=== PATIENT | female | born 1980 | race Caucasian/White ===

== ENCOUNTER 2019-10-20 15:06 | Emergency (ER) | payer BC, SELFPAY ==
--- NOTE | ~2019-10-20 | US_ITS ---
EXAMINATION:US venous doppler LE RT INDICATION:Right leg pain TECHNIQUE: Multiple grayscale, color flow and Doppler images of the right lower extremity deep venous systems were obtained and reviewed. COMPARISON:No prior studies for comparison. FINDINGS: The common femoral, superficial femoral and popliteal veins demonstrate normal respiratory variation, augmentation and compressibility. Color flow is also seen within the posterior tibial, pe roneal, greater saphenous and profunda veins. IMPRESSION: 1: No lower extremity deep venous thrombosis. Reviewed, dictated and finalized at location A. RA MECHANIC
--- NOTE | ~2019-10-20 | XR_ITS ---
XR foot RT min 3V, XR foot LT min 3V 10/20/2019 15:35 Indication: Bilateral foot pain Procedure: 4 views each foot Comparison: No prior studies for comparison. 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 Lisfranc joints intact. No focal soft tissue a bnormality. No radiopaque foreign bodies. No acute fracture or traumatic malalignment. Impression: 1: No acute bone or joint abnormality. Reviewed, dictated and finalized at location A. NISATIONAL PSYCHOLOGIST Impression: 1: No acute bone or joint abnormality. Impression: 1: No acute bone or joint abnormality.
[2019-10-20 14:58] VITALS: BP 127/85; PULSE 84; RESP 20; TEMP 36.6; O2SAT 100
--- NOTE | 2019-10-20 15:09 | ED.LOWEXIN ---
HPI - Extremity Injury (Lower) General Chief Complaint: Extremity Injury, Lower Stated Complaint: calf pain Time Seen by Provider: 10/20/19 15:06 Source: patient Mode of arrival: EMS Limitations: no limitations History of Present Illness HPI Narrative: A 39 y/o female pt presents to the ED, with c/o bilateral foot pain x 6 months and a new onset of rt calf pain that began yesterday. Pt denies any Hx of blood clots. She states she has a WATT and feels weak in the ED bed but denies any CP, or SOB. She notes that she saw her PCP for her bilateral foot pain, but they did not find anything abnormal. Pt states her OBGYN is Dr. Gertrude Rocha and notes last seeing him a week and a half ago for an US. She states that Dr. Gertrude Rocha suspects Endometrial CA and is scheduling a repeat US. 5, Para 2, Abortus 2. MD complaint: other (rt calf pain, bilateral foot pain) Onset (ago): day(s) (1 (rt calf pain)) Other symptoms: other (weakness, WATT) Related Data Home Medications Medication Instructions Recorded Confirmed lorazepam 1 mg PO DAILY PRN 10/20/19 Allergies Allergy/AdvReac Type Severity Reaction Status Date / Time No Known Allergies Allergy Unverified 12/04/18 13:02 Review of Systems Review of Systems: All systems reviewed & are unremarkable except as noted in HPI and below Constitutional: Constitutional: Reports headache(s) Cardiovascular: Cardiovascular: Denies chest pain and Denies dyspnea Musculoskeletal: Musculoskeletal: Reports other (bilateral foot pain, rt calf pain) PMFSH Past Medical History Medical History (Updated 10/20/19 @ 16:44 by [facility]ga [facility]) No significant past medical history Surgical History Surgical History (Updated 10/20/19 @ 16:44 by Visualtisinggayatri Hendrickson [employer]) History of thyroidectomy Family History Family History (Updated 04/25/14 @ 07:13 by DOCTOR UNKNOWN) Mother Family history of thyroid disease Grandparent Family history of glaucoma Family history of coronary artery disease Family history of congestive heart failure Social History Social History (Updated 10/20/19 @ 16:45 by Visualtisinggayatri Hendrickson [employer]) Smoking status: Unknown if ever smoked Alcohol intake: current Exam Const: General: cooperative, no acute distress and alert Nutritional Appearance: well nourished Orientation/consciousness: patient oriented x3 Limitations: no limitations HENMT: Mouth: Yes lip normal and Yes moist mucous membranes Resp: Effort & Inspection: normal respiratory effort Auscultation: clear to auscultation bilaterally Cardio: Rate: regular rate Rhythm: regular rhythm GI: GI Palp: Yes Soft to palpation and No Tenderness to palpation present (GI) Auscultation: normal bowel sounds Skin: General skin exam: normal color Neuro: General: patient oriented x3 and deep tendon reflexes 2+ bilaterally Cognition (Neuro): normal cognition Speech: normal speech Extrem: General: normal to inspection, full ROM, no clubbing, cyanosis or edema and no calf tenderness Psych: Mental Status: mental status grossly normal Affect: normal affect Attitude: cooperative Course Course Emergency Course: Patient with no findings to suggest DVT on ultrasound and clinical exam is not overtly suspicious. Patient with foot pain bilaterally for the past 6 months and normal x-rays. Patient to follow-up with her ALLIGATOR SHEAR OPERATOR for follow-up ultrasound as scheduled. Patient appropriate for outpatient management. Vital Signs Vital signs: Vital Signs Temperature 97.8 F 10/20/19 14:58 Pulse Rate 84 10/20/19 14:58 Respiratory Rate 20 10/20/19 14:58 Blood Pressure 127/85 10/20/19 14:58 Pulse Oximetry 100 10/20/19 14:58 Temperature 98.2 F 10/20/19 17:05 Pulse Rate 80 10/20/19 17:05 Respiratory Rate 20 10/20/19 17:05 Blood Pressure 120/78 10/20/19 17:05 Pulse Oximetry 99 10/20/19 17:05 MDM - Extremity Injury (Lower) Imaging Data Radiologist's impression:
[2019-10-20 17:05] VITALS: BP 120/78; PULSE 80; RESP 20; TEMP 36.8; O2SAT 99
== END 2019-10-20 17:06 | disposition home or self-care (01) ==
PROVIDERS: Emergency Provider Emergency Medicine; PCP Family Medicine
DX: M79.672 Pain in left foot (principal); M79.671 Pain in right foot; M79.661 Pain in right lower leg; E89.0 Postprocedural hypothyroidism
CPT/HCPCS: 73630; 93971; 99284

== ENCOUNTER 2020-02-03 12:35 | Outpatient (RCR) | payer BC, SELFPAY ==
[2020-02-03 12:56] VITALS: BP 111/64; PULSE 83
--- NOTE | 2020-02-03 13:20 | PC.NURSE ---
Patient arrived on unit at 1235, visibly manic, talking erratic. Patient states that I have not felt my baby move for at least a week. 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 Patient taken to room at 1238, given a belly band and patient went to the bathroom. Patient stated I need to check my vagina. Patient in bed, monitors placed on patient abdomen. heart tones present. Patient then began talking erratic again, states, they cloned my baby last week, they went up my rectum and cloned the baby, now he wants out. God told me yesterday he was going to heal me and i think he did just that. 1246- Call placed to Dr. Crouch, informed him of heart tones, and no contractions on monitor. Orders to send patient to ER to be evaluated. 1250- Call placed to ER to elt them know to be expecting this patient, per Deborah, take patient directly to room 109. 1254- Upon entering patient room, patient has pants down at ankles. patient instructed to put pants back on, baby looks fine on the monitor, so we will be taking her to the ER for further evaluation. Patient is agreeable to this. patient taken via wheelchair to room 9 in ER. Report given to ASUNCION Cabrera and ASUNCION Hernandez.
--- NOTE | 2020-02-04 07:07 | PM.OBTRLD ---
OB - Triage/Final Diagnosis Visit Information Date of evaluation: 02/03/20 Reason for evaluation: decreased movement Evaluation Vital signs: Vital Signs - 24 hr 02/03/20 12:56 Pulse Rate 83 Blood Pressure [Left Arm] 111/64
== END 2020-05-03 23:59 | disposition home or self-care (01) ==
LOC: ANHOBOP 12:35
PROVIDERS: PCP Family Medicine; Visit Provider Student in an Organized Health Care Education/Training Program
DX: O36.8120 Decreased fetal movements, second trimester, not applicable or unspecified (principal); Z3A.23 23 weeks gestation of pregnancy
CPT/HCPCS: 59025

== ENCOUNTER 2020-02-03 13:09 | Emergency (ER) | payer BC, SELFPAY ==
[2020-02-03] VITALS (7 sets, daily range): BP systolic 107–138; BP diastolic 48–76; PULSE 62–85; RESP 8–27; TEMP 36.9; O2SAT 96–100
--- NOTE | ~2020-02-03 | US_ITS ---
US OB follow up DATE: 02/03/2020 13:52 INDICATION: Unsure of last menstrual period TECHNIQUE: Real-time imaging and Doppler analysis COMPARISON: 04/12/2019 transvaginal ultrasound FINDINGS: Live nguyen intrauterine gestation, fetus in vertex presentation, longitudinal lie. Post erior placenta. Lower placental margin is 7.5 cm above the internal os. heart rate 120 bpm. Biparietal diameter 5.72 cm; 23 weeks 4 days estimated gestational age Head circumference 21.52 cm; 23 weeks 4 days Abdominal circumference 18.38 cm; 23 weeks 1 day Femur length 3.89 cm; 22 weeks 3 days Composite age by [place] formula is 23 weeks 1 day +/- 1 week 4 days; BRYAN by ultrasound is 05/31/2020 . Estimated weight is 551.4 +/- 80 3 g. Head circumference/abdominal circumference 1.17, within normal range of 1.05-1.21. Femur length/BPD 67.98, below normal range of 71.0-87.0 Femur length/head circumference 18.06, below normal range of 19.13, 120.81 Femur length/abdominal circumference 21.14, within normal range of 20.00-24.00 Amniotic fluid index measures 17.4 cm, within normal range. The 5th percentile ESTRELLITA is 9.8 cm; 95th pe rcentile ESTRELLITA is 21.8 cm. IMPRESSION: Estimated gestational age is 23 weeks 1 day +/- 1 week 4 days; BRYAN: 05/31/2020 Reviewed, dictated and finalized at Location A. Reviewed, dictated and finalized at location A.
--- NOTE | 2020-02-03 14:00 | PC.NURSE ---
BELT WORKER AT BEDSIDE.
[2020-02-03 14:06] LABS: Add Urine Microscopic? NO; Appearance Urine Clear (Clear); Basophils Absolute Auto 0.1 K/mm3 (0.0-0.1); Basophils Percent Auto 0.5 % (0.2-1.2); Bilirubin Urine Negative (Negative); Blood Urine Negative (Negative); Color Urine Colorless (Yellow); Eosinophils Absolute Auto 0.1 K/mm3 (0-0.3); Eosinophils Percent Auto 1.1 % (0-4.4); Glucose Urine UA Negative (Negative); Hematocrit 31.3 % (37.0-47.0); Hemoglobin 10.8 g/dL (12.0-15.0); Immature Granulocyte Absolute 0.05 K/mm3 (0.00-0.031); Immature Granulocyte Percent A 0.5 % (0-0.5); Ketones Urine Negative (Negative); Leukocyte Esterase Ur Negative LEU/UL (Negative); Lymphocytes Absolute Auto 1.99 K/mm3 (0.9-3.2); Lymphocytes Percent Auto 18.8 % (18.3-44.2); Mean Corpuscular HGB Conc 34.5 g/dl (32-36); Mean Corpuscular Hemoglobin 32.1 pg (26-34); Mean Corpuscular Volume 93.2 fl (80-100); Mean Platelet Volume 9.6 fl (7.4-10.4); Monocytes Absolute Auto 0.7 K/mm3 (0.1-0.6); Monocytes Percent Auto 6.1 % (2.6-8.5); Neutrophils Absolute Auto 7.7 K/mm3 (1.3-6.7); Nitrate Urine Negative (Negative); Platelet Count Result 331 k/mm3 (150-375); Protein Urine Negative (Negative); Red Blood Count 3.36 M/mm3 (4.2-5.4); Red Cell Distribution Width 12.2 % (11.5-14.5); Specific Grav Ur 1.003 (1.001-1.035); Urobilinogen Urine Negative mg/dL (<2.0); White Blood Count 10.6 K/mm3 (4.5-10.0)
[2020-02-03 14:17] LABS: Alanine Aminotransferase 16 U/L (4-35); Albumin Level 3.4 g/dL (3.5-5.1); Alkaline Phosphatase 91 U/L (38-126); Aspartate Amino Transferase 25 U/L (14-36); Bilirubin,Total 0.4 mg/dL (0.2-1.3); Blood Urea Nitrogen 2 mg/dL (7-17); Calcium 8.2 mg/dL (8.4-10.2); Carbon Dioxide 23 mmol/L (22-30); Chloride 98 mmol/L (98-107); Estimated CRCL calculation 156 ml/min; Estimated Glomerular Filt Rate > 60; Glucose 91 mg/dL (65-105); Sodium 126 mmol/L (137-145)
[2020-02-03 14:18] LABS: Ethanol < 10 mg/dL (<10)
[2020-02-03 14:21] LABS: Amphetamine Screen Urine Negative (Negative); Barbiturate Screen Urine Negative (Negative); Benzodiazepines Screen Urine Negative (Negative); Cannabinoid Screen Urine Negative (Negative); Cocaine Screen Urine Negative (Negative); Methadone Screen Urine Negative (Negative); Opiate Screen Urine Negative (Negative); Phencyclidine Screen Urine Negative (Negative)
--- NOTE | 2020-02-03 14:24 | PC.NURSE ---
Pt mother called to talk to this RN. Mother states that pt has been off of her medications for months. States she has been maniac
--- NOTE | 2020-02-03 14:37 | ED.PSYCH ---
HPI - Psych General Chief Complaint: Psychiatric Symptoms <Peng Lala MD - Last Filed: 02/03/20 19:03> Stated Complaint: unknown <Peng Lala MD - Last Filed: 02/03/20 19:03> Time Seen by Provider: 02/03/20 13:16 <Peng Lala MD - Last Filed: 02/03/20 19:03> History of Present Illness HPI Narrative: Patient is a 39-year-old female with history of schizophrenia who presents the ER with hallucinations. Patient originally went to OB to be evaluated for a baby that had not moved over the last week. They found that the baby was indeed active and had a heartbeat so she was referred to the ER for her hallucinations. Patient reports she thinks that she is part of a science experiment with the [facility] were they have implanted a chip in her. She also has concerns that her urethra/vagina/rectum have been sealed shut and only spontaneously open. She is also been exposed to cloning vapors from a vent at her mother's home. Patient reports that she frequently speaks with God and he communicates to her through writings on the quinones. She is not currently seeing any writing on the wall and she is not responding to any internal stimuli. Patient denies any medical complaints. She reports she is about 5 months and that she sees Dr. Gertrude Rocha. His office reports that they are aware of her but she has not been seen. Patient is a G5, P2 with 2 miscarriages. She denies any drug use. She is persistently requesting drinks water. <Peng Lala MD - Last Filed: 02/03/20 19:03> Related Data Home Medications: Home Medications Medication Instructions Recorded Confirmed lorazepam 1 mg PO DAILY PRN 10/20/19 <Peng Lala MD - Last Filed: 02/03/20 19:03> Allergies/Adverse Reactions: Allergies Allergy/AdvReac Type Severity Reaction Status Date / Time No Known Allergies Allergy Unverified 02/03/20 13:28 <Peng Lala MD - Last Filed: 02/03/20 19:03> Review of Systems Review of Systems: All systems reviewed & are unremarkable except as noted in HPI and below (Very limited given patients psychosis) <Peng Lala MD - Last Filed: 02/03/20 19:03> [facility] Past Medical History Medical History: Medical History (Updated 02/07/20 @ 00:01 by Background Dacassy) No significant past medical history Schizophrenia <Peng Lala MD - Last Filed: 02/03/20 19:03> Surgical History Surgical History: Surgical History (Updated 10/20/19 @ 16:44 by [email or web address]) History of thyroidectomy <Peng Lala MD - Last Filed: 02/03/20 19:03> Family History Family History: Family History (Updated 04/25/14 @ 07:13 by DOCTOR UNKNOWN) Mother Family history of thyroid disease Grandparent Family history of glaucoma Family history of coronary artery disease Family history of congestive heart failure <Peng Lala MD - Last Filed: 02/03/20 19:03> Social History Social History: Social History (Updated 10/20/19 @ 16:45 by [email or web address]) Smoking status: Unknown if ever smoked Alcohol intake: current Gender identity (if verbalized by the patient): Female <Peng Lala MD - Last Filed: 02/03/20 19:03> Exam Narrative: Exam Narrative: GENERAL: Anxious-appearing, well-nourished, and in mild distress. HEAD: Normocephalic, atraumatic. EYES: PERRL and EOMI. ENT: Mucous membranes moist. CHEST: Clear to auscultation. No respiratory distress. HEART: Regular rate and rhythm. Normal peripheral pulses. ABDOMEN: Soft, fundus palpated just above the umbilicus, nondistended, normal active bowel sounds. : Normal external genitalia. No apparent discharge or bleeding evaluated from a distance with patient manually opening her vagina. No speculum exam performed. EXTREMITIES: Normal range of motion. No edema. SKIN: Warm, dry, no rash. NEURO: Alert and oriented x3. PSYCH: Patient with extreme par
[2020-02-03 14:48] LABS: Thyroid Stimulating Hormone 0.978 uIU/mL (0.465-4.680)
--- NOTE | 2020-02-03 14:58 | PC.NURSE ---
While swabbing pt for Covid, pt putting her hand down her pants stating my vagina is one finger deep and 1.5 inches open, my urethra is closed, its turned to the right toward my bowels. I stopped a nuclear bomb yesterday.
--- NOTE | 2020-02-03 15:29 | PC.NURSE ---
Crisis Called and will be out to evaluate pt shortly
--- NOTE | 2020-02-03 15:29 | PC.NURSE ---
If pt is DC, call Jay at [phone] for a ride
--- NOTE | 2020-02-03 15:53 | PC.NURSE ---
Pt ambulatory to the bathroom at this time
--- NOTE | 2020-02-03 16:30 | PC.NURSE ---
Crisis here to evaluate pt. Pt becoming very agitated. This RN and Dr Post present in room. Pt pulling her pants down and sticking her fingers in her vagina yelling see my vagina isn't closed, you need to check my vagina Pt then gets on bed and spreads her legs open showing us her vagina and yelling stick your finger in my vagina and see
--- NOTE | 2020-02-03 16:45 | PC.NURSE ---
VORB for 5 mg IM zyprexa. Pt very agitated and yelling to not give her medication. Pt getting out of bed and attempting to run. Pt stopped and guided back to her bed. Pt finally agrees and cooperates with given medication. MD present at time of medication administration
[2020-02-03] MEDS: OLANZapine 10 MG INJ VIAL (16:49)
[2020-02-03] MEDS: WATER, STERILE FOR INJECTION 10 ML VIAL XX (16:49)
--- NOTE | 2020-02-03 16:56 | PC.NURSE ---
According to pts friend Jay, pt has contact with her children when she is at her mothers house.
--- NOTE | 2020-02-03 17:28 | PC.NURSE ---
DCFS called at this time to make sure the children are in a safe situation. He states that it does not meet criteria for abuse or neglect at this time but he states he is going to search there are any preventative programs that he can get to help her. Report was mailed at this time Intake [id number], Cong Stahl
--- NOTE | 2020-02-03 18:20 | PC.NURSE ---
[facility] called and stated they have no beds available
--- NOTE | 2020-02-03 18:45 | PC.NURSE ---
Pt becoming more agitated at this time. Pt pulling off wires and taking off her clothes. Pt pacing the room talking irrationally. MD JOHNSON for 2 mg Ativan
[2020-02-03] MEDS: LORAZEPAM INJ 2 MG/ML VIAL IM (19:01)
--- NOTE | 2020-02-03 19:02 | PC.NURSE ---
This RN in attempting to give ativan. pt states I dont want ativan, Im gonna edy. 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 I don;t want it. Ok give it to me so i can edy you. Pt let me give medication. Pt continuing to pace room, talking to herself, checking her vagina
--- NOTE | 2020-02-03 19:59 | PC.NURSE ---
CALL RECEIVED FROM RN AT [facility]. TRIAGE INFORMATION GIVEN. STATES CALLING DR NOW AND WILL CALL BACK IF PT IS ACCEPTED
--- NOTE | 2020-02-03 21:16 | PC.NURSE ---
CALLED RECEIVED FROM GILSON ROLAND. STATES [facility] DENIED THE PT.
--- NOTE | 2020-02-04 05:36 | PC.NURSE ---
CALL RECEIVED FROM THERON, PT MOTHER. UPDATES GIVEN
--- NOTE | 2020-02-04 06:00 | PC.NURSE ---
PT PACING IN ROOM. STATES NO ONE IS EVEN CHECKING MY BABY. HEART TONES COMPLETE- HEART RATE 143.
--- NOTE | 2020-02-04 06:10 | PC.NURSE ---
PT PACING IN ROOM. STATING I NEED TO LEAVE! I NEED TO GO TO MEDICAL RECORDS TO GET MY RESULTS AND LEAVE. PT STATES HER VAGINA IS CLOSING AND SHE IS LEAVING TO SEE DR DULCE ANDRES. REDIRECT BEHAVIOR. CALMING THERAPIES. DR SIMEON NOTIFIED. ORDERS REVEIVED.
[2020-02-04] MEDS: OLANZapine 10 MG INJ VIAL IM (06:15)
--- NOTE | 2020-02-04 07:21 | PC.NURSE ---
This RN into pts room. Pt is sleeping and sitter is at door.
--- NOTE | 2020-02-04 07:47 | PC.NURSE ---
Radha called this RN to room. When I walked into room pt is stating that she peeded herself because the baby Pt also states she needs to get out of here today she has places to be . Pt requested a new pair of pants. Brought pants back to room and pt is laying in bed.
--- NOTE | 2020-02-04 07:51 | PC.NURSE ---
Pt in room stating she wants to go home states I was undercover for a reason, that is why they call it undercover. Radha has alot of shit on us and they will blow us away, you don't even know the shit they have on us . Tried to redirect pt and asked her if she wanted breakfast. Pt states she wants to see Dr. Gertrude Rocha.
[2020-02-04 08:14] VITALS: BP 111/72; PULSE 59; RESP 15; TEMP 36.7; O2SAT 96
--- NOTE | 2020-02-04 08:15 | PC.NURSE ---
Pt is rambling on with unintelligible words.
--- NOTE | 2020-02-04 08:29 | PC.NURSE ---
Pt keeps wanting to go home. Pt asked if we are going to do surgery on her. Informed pt that no, we will not.
--- NOTE | 2020-02-04 09:19 | PC.NURSE ---
Per Mary Francis, Infection Control- [facility] Dept. contacted her & was told the patient has been on quarantine due to her mother being positive for COVID. Pt has left her mothers home multiple times, and PD had had to bring her back home. No negative air pressure room is needed at this time.
--- NOTE | 2020-02-04 10:07 | PC.NURSE ---
Awa from Crisis called . States that when COVID test comes back to call her and then we can see about placement. Pt has to be medically cleared before we can try and place pt.
[2020-02-04] MEDS: LORAZEPAM INJ 2 MG/ML VIAL IM ×2 (10:15→21:40)
--- NOTE | 2020-02-04 10:15 | PC.NURSE ---
Ativan given to pt by Lizzy ROLAND.
--- NOTE | 2020-02-04 10:15 | PC.NURSE ---
Pt trying to come out of room. stating she is needing to leave and get things done . Pt states that we are trying to keep her for a science project and while pt was sleeping we made her touch little boys penis'. Pt was calling out for her mom to come and get her. Pt looked up at TV and said Marvel come and get me, I know you can hear me Marvel . Pt also told another RN she wished she would get hit by a car. Pt continues to raise her voice at this RN. Pt was given Ativan per Dr. Salguero. Pt wanted to look over her blood work and is stating that she is needing fluids and that her baby is hurting .
--- NOTE | 2020-02-04 13:11 | PC.NURSE ---
PTs mom called to check on status of pt. Per pts mom pts OB is Dr. Gertrude Rocha and her psychiatrist is Andra in [place] [phone]. Pts mom is Radha Garcia and can be reached at [phone]
--- NOTE | 2020-02-04 13:18 | PC.NURSE ---
Pt came out into hallway and wanted to speak with her OBGYN and urologist. Pt states I dont want to talk on the phone, i want to see someone face to face. Pt was directed back to room when lunch was waiting. Pt sat down and started to eat.
--- NOTE | 2020-02-04 14:01 | PC.NURSE ---
Pt states she is leaving and needs her discharge papers. States that her mom is trying to put her in the psych byrd and that Dr. Jessica Rocha has overridden that order and that she can go home. RN talked pt into staying just a little longer and shes now content laying in bed. Sitter remains at bedside.
--- NOTE | 2020-02-04 14:45 | PC.NURSE ---
Pt moved from room 9 to room 15. This RN assumed care of pt. Pt becoming aggitated and not wanting to go into room. VORB for 1 mg Ativan. Pt walking into nurses station. multiple RN and security present.
[2020-02-04] MEDS: LORAZEPAM INJ 2 MG/ML VIAL 1 MG IM (14:57)
--- NOTE | 2020-02-04 15:38 | PC.NURSE ---
This RN in room to take pt vitals, pt cooperating. Still having disorganized thoughts
[2020-02-04 15:40] VITALS: BP 114/70; PULSE 94; RESP 18; TEMP 36.9; O2SAT 96
[2020-02-04 15:57] LABS: SARS-CoV-2 RNA PCR Negative
--- NOTE | 2020-02-04 18:00 | PC.NURSE ---
Crisis here speaking with patient at this time
[2020-02-04 19:02] VITALS: BP 117/79; PULSE 88; RESP 18; TEMP 36.8; O2SAT 98
--- NOTE | 2020-02-04 21:13 | PC.NURSE ---
Cecilia from [facility] calls to get more information on patient and states she will fax some paperwork to be filled out and faxed back to [phone].
--- NOTE | 2020-02-04 21:23 | PC.NURSE ---
Eva, from [facility] in [place], calls to inform this nurse that there are no beds available at their facility.
[2020-02-04] MEDS: HALOPERIDOL LACTATE 5 MG/ML VIAL IM (21:39)
--- NOTE | 2020-02-04 21:44 | PC.NURSE ---
Patient walking out of her room, and around department yelling and screaming. Patient stating I'm not going in my room, I'm going outside, you can't make me do things I don't want to do. I'm not part of your science experiment!. This nurse, ED charge Nurse, sitter at bedside, and security at bedside. Patient constantly yelling and walking around department stating she is going outside! I'm going to smoke! and there is nothing you can do about it! Patient constantly stating I'm not crazy, I don't need psych! You guys are killing m baby! I'm interviewing you right now, so when I buy this place you guys are going to get fired! Patient stating I'm not part of your science project anymore!!, I'm calling the police, I'm calling karina purdy!! as patient is grabbing for ED charge RNs phone on her desk. Patient instructed to go back to her room since there are other patient's in the department. Patient yelling :I'm not going back in there! You guys took my room, I'm not going back in there! Patient assisted into her room, patient walking voluntarily to her room. EDP orders 2mg of Ativan, and 5mg of Haldol. Patient received medications voluntarily by this nurse and ED charge nurse. Patient requested to have the heart tones performed. ED broker in charge performed heart tones on patient. Patient sitting in her doorway, with security outside her room and sitter at bedside.
--- NOTE | 2020-02-04 22:07 | PC.NURSE ---
Heart tones obtained they were 155. notified.
--- NOTE | 2020-02-04 22:16 | PC.NURSE ---
At 2157 Marito from [facility] calls to inform this nurse that the doctor stated she is not accepting patient. She refused to take the patient since they don't see patient's past 3 months gestation. The doctor stated there wasn't much we could do for her. ED lost charge card clerk and EDP notified.
--- NOTE | 2020-02-05 03:52 | PC.NURSE ---
Patient in her normal shirt and put on her sandals. Patient informed she is to be in green scrubs and to not have her shoes. EDP stated I'm okay with her in her sandals and t-shirt with green scrub pants. real estate asset manager aware.
--- NOTE | 2020-02-05 06:44 | PC.NURSE ---
This nurse contacted manager food and spoke with Shannon, and ordered a breakfast tray for the patient.
[2020-02-05 06:53] VITALS: BP 137/87; PULSE 81; RESP 18; TEMP 36.9; O2SAT 98
--- NOTE | 2020-02-05 09:30 | PC.NURSE ---
Addendum entered by Gisell Tamez RN 02/05/20 18:48: no blood noted on pts hand or fingers s/p pt placing them in her vagina. pt denies any abd pain. no leaking of fluid noted. Original Note: pt requesting to be discharged. states her doctor has discharged her and that these doctors are not her doctors. pt refusing to stay in room. pacing hallway. yelling at staff just who the hell do you think you are . pt in room placing right hand inside her pants then having a conversation with it as though it was a radio. pt asking radio for help from [employer] because hospital is beating the hell out of her.
[2020-02-05] MEDS: LORAZEPAM INJ 2 MG/ML VIAL IM ×2 (09:35→22:02)
--- NOTE | 2020-02-05 10:40 | PC.NURSE ---
[facility] in [place] contacted ed requesting more info on pt
--- NOTE | 2020-02-05 12:07 | PC.NURSE ---
pt denied by [facility]
--- NOTE | 2020-02-05 13:48 | PC.NURSE ---
pt again refusing to stay in room. made it to ed exit and then assisted back to room. stating that she is supposed to be in court to get her ama papers. requesting edp to check her vagina and rectum to make sure they are working properly.
[2020-02-05] MEDS: HALOPERIDOL LACTATE 5 MG/ML VIAL IM ×2 (13:52→22:02)
--- NOTE | 2020-02-05 16:37 | PC.NURSE ---
[id number] SPOKE WITH PTS MOTHER [phone] PER PT'S REQUEST AND INFORMED HER THAT PT WAS STILL IN ED WAITING PLACEMENT.
[2020-02-05 19:14] LABS: Basophils Absolute Auto 0.1 K/mm3 (0.0-0.1); Basophils Percent Auto 0.5 % (0.2-1.2); Eosinophils Absolute Auto 0.2 K/mm3 (0-0.3); Eosinophils Percent Auto 1.9 % (0-4.4); Hematocrit 30.2 % (37.0-47.0); Immature Granulocyte Absolute 0.04 K/mm3 (0.00-0.031); Immature Granulocyte Percent A 0.4 % (0-0.5); Lymphocytes Absolute Auto 2.21 K/mm3 (0.9-3.2); Lymphocytes Percent Auto 21.3 % (18.3-44.2); Mean Corpuscular HGB Conc 33.1 g/dl (32-36); Mean Corpuscular Hemoglobin 31.6 pg (26-34); Mean Corpuscular Volume 95.6 fl (80-100); Mean Platelet Volume 9.8 fl (7.4-10.4); Monocytes Absolute Auto 0.7 K/mm3 (0.1-0.6); Monocytes Percent Auto 6.8 % (2.6-8.5); Neutrophils Absolute Auto 7.2 K/mm3 (1.3-6.7); Neutrophils Percent Auto 69.1 % (45.5-73.1); Platelet Count Result 324 k/mm3 (150-375); Red Blood Count 3.16 M/mm3 (4.2-5.4); Red Cell Distribution Width 12.8 % (11.5-14.5); White Blood Count 10.4 K/mm3 (4.5-10.0)
[2020-02-05 19:30] LABS: Alanine Aminotransferase 14 U/L (4-35); Alkaline Phosphatase 70 U/L (38-126); Aspartate Amino Transferase 25 U/L (14-36); Bilirubin,Total 0.1 mg/dL (0.2-1.3); Blood Urea Nitrogen 7 mg/dL (7-17); Calcium 8.2 mg/dL (8.4-10.2); Carbon Dioxide 24 mmol/L (22-30); Chloride 104 mmol/L (98-107); Estimated CRCL calculation 128 ml/min; Estimated Glomerular Filt Rate > 60; Glucose 108 mg/dL (65-105); Potassium 3.6 mmol/L (3.4-5.0); Sodium 132 mmol/L (137-145)
--- NOTE | 2020-02-05 20:46 | PC.NURSE ---
SIGNALLING AND COMMUNICATIONS ENGINEER LORE FROM [facility] CALLED TO VERIFY THAT REPEAT ELECTROLYTE LABS WERE DRAWN AND FAXED WITH PACKET. THIS RN ASSURED SIGNALLING AND COMMUNICATIONS ENGINEER; LORE THAT THEY WERE AND VERIFIED 2ND DRAW TIME AND REPEAT RESULTS VERBALLY.
--- NOTE | 2020-02-05 20:59 | PC.NURSE ---
Patient now complaining of abdominal cramping and is requesting to go to OB. I called OB at this time and asked if they would be willing to come over and monitor the baby. OB will be over shortly.
[2020-02-06 02:30] VITALS: BP 115/61; PULSE 75; RESP 20; TEMP 36.6; O2SAT 99
--- NOTE | 2020-02-06 03:36 | PC.NURSE ---
LATE ENTRY NOTE: ON 02/05/2020 AT 2126 BENJAMIN BUSINESS INTERN AT [facility] CALLED TO NOTIFY THIS ED THAT THIS PT HAS BEEN ACCEPTED TO THE [facility]. BENJAMIN GAVE [phone] TO CALL REPORT TO AND THE ACCEPTING PSYCHIATRIC PHYSICIANS NAME DR. Domonique CARRASCO. THIS RN ASKED BENJAMIN FOR THE BED NUMBER ASSIGNED, BENJAMIN REPLIED THAT THIS RN WOULD HAVE TO CALL THE PHONE NUMBER FOR REPORT TO GET THE BED ASSIGNMENT BECAUSE THEY HAD TO MOVE PEOPLE AROUND TO GIVE THIS PT A PRIVATE ROOM. SHORTLY AFTER THIS CONVERSATION THIS RN CALLED THE NUMBER PROVIDED BY MARSHA TO GET THE BED NUMBER AND THE ADDRESS OF THE FACILITY TO SEND THIS PT TO. THIS RN SPOKE WITH SCOTTIE, WHO IDENTIFIED HERSELF THE ECHOCARDIOGRAPHY TECHNOLOGIST. SCOTTIE SAID THAT THERE ARE NO BEDS AVAILABLE AT THIS TIME AND THAT THIS PT ISN'T SUPPOSED TO ARRIVE UNTIL TOMORROW. THIS RN VALIDATED THAT THIS PT MOST LIKELY WOULDN'T ARRIVE UNTIL SOMETIME TOMORROW, BUT AM TRYING TO ARRANGE TRANSPORTATION. THIS RN ASKED TO [facility] THIS TIME. SCOTTIE DIRECTED TO CALL BACK LATER BECAUSE THE CHARGE NURSE WAS BUSY IN A ROOM .
--- NOTE | 2020-02-06 03:51 | PC.NURSE ---
LATE ENTRY NOTE: ON 02/05/2020 AT 2155 PT UP IN HER ROOM YELLING AT STAFF. PT YELLING THAT SHE WAS DRUG TO THIS ED AGAINST HER WILL, AND WANTS TO LEAVE AMA. SEVERAL STAFF MEMBERS ATTEMPTED UNSUCCESSFULLY TO REDIRECT PT. RBVO FROM DR. AAYUSH MOREIRA TO ADMINISTER 5MG HALDOL AND 2 MG ATIVAN IM STAT.
--- NOTE | 2020-02-06 03:56 | PC.NURSE ---
LATE ENTRY NOTE: ON 02/06/2020 AT 0320 THIS RN CALLS [phone] TO SPEAK WITH THE CHARGE NURSE ABOUT THE ROOM ASSIGNMENT. SPOKE WITH WANG ROLANDLABORER WHARF NURSE A THIS TIME. WANG ROLANDLABORER WHARF TOLD THIS RN THAT SHE WAS AWARE OF THIS PT, BUT WILL HAVE TO CALL BACK AFTER 0900 THIS AM AND SPEAK WITH THE DENTAL SECRETARY REGARDING THE BED NUMBER, TRAVEL ARRANGEMENTS, AND ARRIVAL TIME.
[2020-02-06 06:15] VITALS: BP 119/72; PULSE 96; RESP 16; O2SAT 96
--- NOTE | 2020-02-06 07:12 | PC.NURSE ---
Report received from Gisell Jones RN. Pt resting on stretcher, appears to be sleeping. Sitter remains at bedside.
--- NOTE | 2020-02-06 08:08 | PC.NURSE ---
Update given to Awa at Crisis. Awaiting 9am to call social services counselor at [facility] @ [phone].
--- NOTE | 2020-02-06 08:35 | PC.NURSE ---
Per sitter, pt had emesis on her bed after eating small amt of breakfast and also was incontinent of large amt of urine.
--- NOTE | 2020-02-06 09:26 | PC.NURSE ---
Call to [facility] psychiatry services to speak to social worker palliative care at [phone] pager #[phone] to speak with EAMNI Alex. Message left to return call.
--- NOTE | 2020-02-06 10:01 | PC.NURSE ---
Call received from EMANI Rojas at [facility]. States she is awaiting insurance precertification that was supposed to be done last evening, and then will be able to extend a bed. Awa from [facility] states she was not aware of this. Goody[employer] insurance info given to Awa and states she will contact Crystal and speak with her directly after speaking with Goodybag and will fax the precert [phone].
--- NOTE | 2020-02-06 10:30 | PC.NURSE ---
Pt given update on condition, becomes agitated and attempting to leave the facility call Dr. Gertrude Rocha, he manages me. I'm signing out AMA . Explained to patient that she needs to be evaluated for her psychiatric conditions and , states I don't have any fucking psych problems, I'm leaving . discharge rn at bedside, security notified.
--- NOTE | 2020-02-06 10:42 | PC.NURSE ---
Pt again sleeping soundly and snoring loudly. Security and sitter remain at bedside at the moment.
--- NOTE | 2020-02-06 11:18 | PC.NURSE ---
Pt eating lunch tray. Offered zyprexa while awake; pt refuses at this time Zyprexa only supposed to get that once a month
--- NOTE | 2020-02-06 12:47 | PC.NURSE ---
Pt accepted to [facility] call # for report [phone] to Manfred
--- NOTE | 2020-02-06 13:17 | PC.NURSE ---
Attempt to call report to [facility], nurse unavailable, states they're taking pictures and please call back in a half hour .
--- NOTE | 2020-02-06 14:07 | PC.NURSE ---
Report called to ASUNCION Chaudhari, at [facility]. Preparing to contact EMS for transport.
--- NOTE | 2020-02-06 15:01 | PC.NURSE ---
Call to multiple EMS services per [place] for transport of patient to [place]. [facility] accepts the transfer but will not be available until 09 am. Call to EMANI Rojas at [facility] at [phone] pager # [phone] to update with delay of transport information. Call to ASUNCION Chaudhari, at [phone] to let them know of delay. Explained will call with updated report tomorrow. Awa from crisis notified and states she will be out later this evening prior to the petition expiring.
--- NOTE | 2020-02-06 15:16 | PC.NURSE ---
Assumed care of pt, pt is requesting FHT and ice water. Sitter remains at bedside.
--- NOTE | 2020-02-06 16:43 | PC.NURSE ---
pt requested crackers, taken to bedside - pt resting at this time, sitter remains at bedside
[2020-02-06 17:11] VITALS: BP 114/69; PULSE 78; O2SAT 98
--- NOTE | 2020-02-06 17:27 | PC.NURSE ---
Dietary tray ordered for pt. Sitter at bedside. VSS.
--- NOTE | 2020-02-06 19:14 | PC.NURSE ---
Awa from Crisis here to re eval pt, an udate involuntary forms.
--- NOTE | 2020-02-06 19:38 | PC.NURSE ---
pt sitting on bed, sitter at door entrance, pt states she isnt crazy so dont know why she needs to be taken to psych facility. pt given drink and toileted, pt calm, no outbursts.
--- NOTE | 2020-02-06 21:11 | PC.NURSE ---
no change in pt cond, sitter at door. pt resting quietly.
--- NOTE | 2020-02-06 22:54 | PC.NURSE ---
pt asleep, no resp distress, sitter at bedside.
--- NOTE | 2020-02-07 00:28 | PC.NURSE ---
pt up in room, no change in status, awaiting transfer , sitter at bedside
--- NOTE | 2020-02-07 00:54 | PC.NURSE ---
FHT 139 strong.
--- NOTE | 2020-02-07 01:32 | PC.NURSE ---
pt asleep, no resp distress, sitter at bedside.
--- NOTE | 2020-02-07 02:17 | PC.NURSE ---
0155- Vesna from [facility] called to confirm patients transport in the morning. They will arrive in between [id number].
[2020-02-07 04:00] VITALS: BP 122/79; PULSE 69; RESP 18; TEMP 36.8; O2SAT 97
--- NOTE | 2020-02-07 07:16 | PC.NURSE ---
Assumed care. Sleeping on cart. Awaiting transport to psych facility.
[2020-02-07] MEDS: OLANZapine 10 MG INJ VIAL 5 MG IM (08:51)
[2020-02-07] MEDS: WATER, STERILE FOR INJECTION 10 ML VIAL XX (08:57)
[2020-02-07 09:03] VITALS: BP 113/61; PULSE 78; RESP 16; TEMP 36.7; O2SAT 98
[2020-02-07 10:00] VITALS: BP 113/71; PULSE 78; RESP 20; TEMP 36.7; O2SAT 99
--- NOTE | 2020-02-07 10:17 | PC.NURSE ---
TO [facility]. PT COOPERATIVE WITH STAFF.
--- NOTE | 2020-02-07 12:44 | PC.NURSE ---
Second page sent to call report to receiving facility.
--- NOTE | 2020-02-07 15:38 | PCCCNOTE ---
Spoke with Anastacia Singh at [facility] on 02/06/20 to obtain precert for inpatient behavioral health. Auth number [id number] received for admission to [facility]. Librado monte for 02/05-02/09 with updated clinicals due on Tuesday, 02/10. This information was passed along to Crystal JOAQUIN, at [facility].
--- NOTE | 2020-02-07 15:57 | PC.NURSE ---
[facility] RETURNED CALL. GAVE UPDATE ON PT AND ETA TO THEIR FACILITY.
== END 2020-02-07 10:30 ==
PROVIDERS: Emergency Medicine; Emergency Provider General Practice; PCP Family Medicine
DX: F29 Unspecified psychosis not due to a substance or known physiological condition (principal); F20.9 Schizophrenia, unspecified; E89.0 Postprocedural hypothyroidism; Z20.828 Contact with and (suspected) exposure to other viral communicable diseases
CPT/HCPCS: 36415; 76816; 80053; 80307; 81003; 81025; 84443; 85025; 87635; 96372; 99285; C9803; J1630; J2060; U0003

== ENCOUNTER 2020-03-22 08:05 | Inpatient (IN) | payer BC, SELFPAY ==
[2020-03-22] VITALS (37 sets, daily range): BP systolic 98–131; BP diastolic 50–86; PULSE 42–138; RESP 16–24; TEMP 36.7–37.3; O2SAT 93–100; BMI 30.3
--- NOTE | ~2020-03-22 | US_ITS ---
US OB limited w BPP DATE: 03/22/2020 09:46 INDICATION: well being evaluation TECHNIQUE: Real-time imaging and Doppler analysis COMPARISON: 02/03/2020 obstetrical ultrasound FINDINGS: Live nguyen intrauterine gestation, fetus in longitudinal lie, vertex presentation. Feta l heart rate of 155 bpm. Posterior placenta. Amniotic fluid index measures 20.9 cm. 5th percentile at 29 weeks is 9.2 cm. 95th percentile is 23.1 cm. BIOPHYSICAL PROFILE reported by therapy technician: breathin out of 2 movement: 2 out of 2 tone: 2 out of 2 Amniotic fluid pocket: 2 out of 2 Total score: 8 out of 8 IMPRESSION: Normal biophysical profile score of 8 out of 8 Reviewed, dictated and finalized at [facility]. Reviewed, dictated and finalized at [facility].
--- NOTE | ~2020-03-22 | CT_ITS ---
EXAMINATION: CT brain wo con DATE: 03/22/2020 09:45 INDICATION: Seizure activity. Headache. Patient is 29 weeks . Past history of seizures, none since 2018. TECHNIQUE: Computed tomography (CT) of the head was performed without intravenous contrast. The mA wa s adjusted according to patient size. Iterative reconstruction technique was employed. Exam dose: 60 5.33 mGy-cm total exam DLP. COMPARISON: 01/28/2015 CT brain FINDINGS: There is mild motion artifact. No intracranial mass lesion or hemorrhage, midline shift or mass effect. Normal ventricular size. No subdural or epidural hematoma. No fracture or bone destruction of the cranial vault. The mastoid air cells and included paranasal si nuses are normally developed and aerated with exception of the frontal sinuses weren't which are not developed in association with persistent metopic suture. IMPRESSION: No significant intracranial abnormality Reviewed, dictated and finalized at [facility]. Reviewed, dictated and finalized at [facility].
--- NOTE | 2020-03-22 08:06 | PC.NURSE ---
Pt assisted into bed and SVE performed. 1-2 cm/ thick/ -2 to -3 station. Unsure of gestational age. After SVE was performed, pt rolled onto her abdomen and stopped screaming, but not answering any questions.
--- NOTE | 2020-03-22 08:08 | PC.NURSE ---
Attempting to monitor FHT's per monitor.
--- NOTE | 2020-03-22 08:10 | PC.NURSE ---
Pt has started non-stop screaming- no words. monitor tracing maternal heart rate. Unable to assess for uterine tightness due to maternal screaming.
--- NOTE | 2020-03-22 08:11 | PC.NURSE ---
Pt's mother here now and able to tell us her name is Theresa Kelly, due date is 06/01, and Dr. Gertrude Rocha is her physician. Informed pt was just transferred back from the [facility] psychiatric unit in [place] this past Tuesday- stable on [place]. Dr. Gertrude Rocha paged to come to unit. U/S machine brought to bedside for MD to verify FHT's.
--- NOTE | 2020-03-22 08:14 | PC.NURSE ---
Dr. Gertrude Rocha at bedside and started talking to pt to calm her. Pts eyes are open, has stopped screaming, but not verbally responding to us.
--- NOTE | 2020-03-22 08:16 | PC.NURSE ---
Bedside U/S per Dr. Loredo confirms heart rate approximately 140. MD noted good amount of amniotic fluid, but still to do ROM plus as pt came is with wet underwear.
--- NOTE | 2020-03-22 08:19 | PC.NURSE ---
Pt is on her left side now and U/S transducer repositioned to find FHT's -150. Pt flipped back onto her belly.
--- NOTE | 2020-03-22 08:20 | PC.NURSE ---
See OBIX documentation for FHT's and VS.
[2020-03-22 08:59] LABS: Basophils Absolute Auto 0.1 K/mm3 (0.0-0.1); Basophils Percent Auto 0.6 % (0.2-1.2); Eosinophils Absolute Auto 0.3 K/mm3 (0-0.3); Eosinophils Percent Auto 1.6 % (0-4.4); Hematocrit 35.3 % (37.0-47.0); Hemoglobin 11.4 g/dL (12.0-15.0); Immature Granulocyte Absolute 0.18 K/mm3 (0.00-0.031); Immature Granulocyte Percent A 1.1 % (0-0.5); Lymphocytes Absolute Auto 2.89 K/mm3 (0.9-3.2); Lymphocytes Percent Auto 17.9 % (18.3-44.2); Mean Corpuscular HGB Conc 32.3 g/dl (32-36); Mean Corpuscular Volume 99.2 fl (80-100); Mean Platelet Volume 9.9 fl (7.4-10.4); Monocytes Absolute Auto 0.9 K/mm3 (0.1-0.6); Monocytes Percent Auto 5.8 % (2.6-8.5); Neutrophils Absolute Auto 11.8 K/mm3 (1.3-6.7); Platelet Count Result 376 k/mm3 (150-375); Red Blood Count 3.56 M/mm3 (4.2-5.4); Red Cell Distribution Width 12.7 % (11.5-14.5); White Blood Count 16.2 K/mm3 (4.5-10.0)
--- NOTE | 2020-03-22 09:07 | PM.IMHP ---
H&P: HPI History of Present Illness Chief complaint: Labor Narrative: Theresa Kelly is a 39 year old female who presents at approximately 29 and half weeks gestation with question of rupture of membranes. Significantly she just returned from [place] where she was an inpatient and treated with lithium for psychosis. Upon arrival or she had a clenching tonic episode that appeared to be possible seizure related and responded to10mg of IV Valium. Ultrasound bedside showed what appeared to be fairly normal appearing fluid levels with heart tones present and reassuring. Presently are in the process of retain her records from [place]. Her airway is now clear and she is responding. landing support specialist has been consulted. Review of Systems Review of Systems: All systems reviewed & are unremarkable except as noted in HPI and below PMFSH Past Medical History Medical History No significant past medical history Schizophrenia Surgical History Surgical History History of thyroidectomy Family History Family History Mother Family history of thyroid disease Grandparent Family history of glaucoma Family history of coronary artery disease Family history of congestive heart failure Social History Social History Smoking status: Unknown if ever smoked Alcohol intake: current Gender identity (if verbalized by the patient): Female Meds Home Medications and Allergies Home Medications Medication Instructions Recorded Confirmed Type lithium carbonate 600 mg PO DAILY 03/22/20 03/22/20 History lithium carbonate 900 mg PO HS 03/22/20 03/22/20 History Allergies Allergy/AdvReac Type Severity Reaction Status Date / Time No Known Allergies Allergy Verified 03/22/20 09:07 Vital Signs Vital Signs - 24 hr 03/22/20 08:15 03/22/20 08:23 03/22/20 08:29 Pulse Rate 119 H Blood Pressure 126/77 Pulse Oximetry 97 97 03/22/20 08:32 03/22/20 08:33 03/22/20 08:38 Pulse Rate Blood Pressure Pulse Oximetry 97 100 95 03/22/20 08:39 03/22/20 08:43 03/22/20 08:45 Pulse Rate 118 H Blood Pressure 116/86 Pulse Oximetry 97 97 03/22/20 08:50 03/22/20 08:51 03/22/20 08:55 Pulse Rate 107 H 107 H Blood Pressure 103/55 L 98/57 L Pulse Oximetry 97 97 03/22/20 08:58 03/22/20 09:00 03/22/20 09:01 Pulse Rate 103 H Blood Pressure 101/65 Pulse Oximetry 94 96 95 03/22/20 09:05 03/22/20 09:06 Pulse Rate 134 H Blood Pressure 98/50 L Pulse Oximetry 93 Exam Const: General: anxious, combative and confusion Nutritional Appearance: average body habitus Orientation/consciousness: confusion Eyes: General: appearance normal, both eyes and all related structures Neck: Neck: supple and no JVD Thyroid: thyroid normal Resp: Effort & Inspection: normal respiratory effort Auscultation: clear to auscultation bilaterally Cardio: Rate: regular rate Rhythm: regular rhythm GI: Inspection: normal to inspection (gravid soft uterus fwetus reactive) : General: Yes other ( RN exam cervix 1 and thick. Negative ROM Plus) Skin: General skin exam: no rashes or lesions noted Extrem: General: normal to inspection and no edema Psych: Mental Status: mental status grossly normal Affect: normal affect H&P: Results Labs Labs: Short CBC 03/22/20 Range/Units 08:50 WBC 16.2 H (4.5-10.0) K/mm3 Hgb 11.4 L (12.0-15.0) g/dL Hct 35.3 L (37.0-47.0) % Plt Count 376 H (150-375) k/mm3 Assessment and Plan Additional Plan impression: 29 and half week with questionable seizure versus seizure like activity on lithium Plan: She appears stable hemodynamically presently. The patient will go to the ICU for further workup. Keene levels and
[2020-03-22 09:10] LABS: Lithium 0.9 mmol/L (0.6-1.2)
[2020-03-22 09:19] LABS: Amphetamine Screen Urine Negative (Negative); Barbiturate Screen Urine Negative (Negative); Benzodiazepines Screen Urine Negative (Negative); Cannabinoid Screen Urine Negative (Negative); Cocaine Screen Urine Negative (Negative); Methadone Screen Urine Negative (Negative); Opiate Screen Urine Negative (Negative); Phencyclidine Screen Urine Negative (Negative)
[2020-03-22 09:39] LABS: Glucose Point of Care 108 (65-105)
[2020-03-22 09:46] LABS: Alanine Aminotransferase 23 U/L (4-35); Albumin Level 3.9 g/dL (3.5-5.1); Alkaline Phosphatase 92 U/L (38-126); Aspartate Amino Transferase 25 U/L (14-36); Bilirubin,Total 0.2 mg/dL (0.2-1.3); Blood Urea Nitrogen 3 mg/dL (7-17); Calcium 8.7 mg/dL (8.4-10.2); Carbon Dioxide 11 mmol/L (22-30); Chloride 105 mmol/L (98-107); Estimated Glomerular Filt Rate > 60; Glucose 202 mg/dL (65-105); Sodium 136 mmol/L (137-145)
--- NOTE | 2020-03-22 10:25 | PC.NURSE ---
0805- Pt assisted into OB unit per wheelchair. Pt repetitively screaming, Oh, shit! Pt unable to tell us her name or what is wrong. Just keeps repeating, Oh, shit!
--- NOTE | 2020-03-22 10:27 | ADMGEN ---
This patient, Theresa Kelly, was admitted to Intensive Care Unit-4. Patient/family oriented to hospital policies and general routines including ID bracelet, bed and alarms, visiting hours, pain management, procedures, bathroom and other care routines, personal items, smoking policy, room service/diet, and visiting hours. Valuables list has been completed. Information on how to activate the Rapid Response Team has been discussed. Patient/Family are encouraged to report perceived risks to care and to ask questions if they do not understand what they are told or what they should do.
--- NOTE | 2020-03-22 12:29 | WPDCN ---
Assessment and Plan Assessment and plan (1) Seizure: Code(s): R56.9 - Unspecified convulsions Status: Acute Assessment and Plan: Questionable seizure vs pseudoseizure activity. She received diazepam 10mg and no further episodes noted. There was no tongue biting, loss or bowel or bladder control. Will consult Neurology for probable EEG. Will hold off on antiepileptic drugs at this time. CT head was negative for acute findings. Labs unrevealing. Her mother notes that she had a seizure about a year ago that she attributed to low potassium. At the time the patient was drinking >400oz. per day of diet soda and likely had hyponatremia. (2) Intrauterine : Code(s): Z34.90 - Encounter for supervision of normal , unspecified, unspecified trimester Status: Acute Assessment and Plan: Followed by OB-WEB SERVICES MANAGER. heart rate is reassuring. (3) Bipolar disorder: Code(s): F31.9 - Bipolar disorder, unspecified Status: Acute Assessment and Plan: Continue lithium. Level was therapeutic. Critical care time: 35 minutes. HPI Data of Consult Date/Time: 03/22/20 12:29 Requesting Physician: Davie Vega MD Primary Care Provider: Sawyer Ohara, Consult Narrative Narrative: Theresa Kelly is a 39 year old female at 29w5d gestation with a history of bipolar 1 disorder who presented due to questionable rupture of membranes and headache. All history is provided by her mother, as she is currently dysarthric and encephalopathic. Her mother states that she was recently admitted to the hospital at [facility] for 5 weeks for psychiatric issues and was treated with lithium. She returned home on 03/18 and was back to her normal self, per mother. She hadn't been out of the house and was doing well. This AM at midnight the two of them went to get [place] and she was doing well. Later this AM the two were on their way to a yard sale when the patient began complaining of severe headache and feeling that she had leakage of fluid. Shortly after, she apparently became unresponsive and had a glazed-over look in the car. She was brought here and mother witnessed some tonic-clonic type activity. L&D RN noted her to be clenching her teeth. There was no loss of bowel or bladder control. Vital signs were normal. The OB physician evaluated the patient and requested ICU transfer. Review of Systems Review of Systems: ROS unobtainable: Yes unobtainable due to mental status PMFSH Past Medical History Medical History No significant past medical history Schizophrenia Surgical History Surgical History History of thyroidectomy Family History Family History Mother Family history of thyroid disease Grandparent Family history of glaucoma Family history of coronary artery disease Family history of congestive heart failure Social History Social History Smoking packs per day: 3 Smoking cigarettes per day: 60.0 Years smoked: 16 Smoking pack-years: 48.00 Smoking status: Current every day smoker Tobacco type: cigarettes Alcohol intake: never Substance use: never Gender identity (if verbalized by the patient): Female Spiritual care concerns: No Meds Home Medications and Allergies Home Medications Medication Instructions Recorded Confirmed Type ferrous sulfate 325 mg PO BID 03/22/20 03/22/20 History lithium carbonate 600 mg PO DAILY 03/22/20 03/22/20 History lithium carbonate 900 mg PO HS 03/22/20 03/22/20 History vit no.[id number] 1 tablet PO DAILY 03/22/20 03/22/20 History [Classic ] Allergies Allergy/AdvReac Type Severity Reaction Status Date / Time No Known Allergies Allergy Britton
--- NOTE | 2020-03-22 13:52 | PC.NURSE ---
Patient stated there are a lot of people in here and a lot of voices. Looks toward the window and appears to carry on a conversation with others not physically in the room. Randomly starts cackle/laughing no, no I have to be nice. Calm down everyone. Only individuals in the room include this RN and patient sitter.
[2020-03-22] MEDS: POTASSIUM CHLORIDE 20 MEQ TABLET 40 MEQ PO (14:44)
--- NOTE | 2020-03-22 15:14 | PC.NURSE ---
sitting in chair states I need to check my esophagus she then proceeded to push right index finger down her throat. Then states I need to check something but I'm not going to tell you what she then stood and inserted fingers of right hand into vagina and proceeded to smell her fingers after. redirected to sit in the chair.
--- NOTE | 2020-03-22 15:19 | PC.NURSE ---
States she does not hear voices or see other people in the room at this time.
[2020-03-22 16:48] LABS: Add Urine Microscopic? NO; Appearance Urine Clear (Clear); Bilirubin Urine Negative (Negative); Blood Urine Negative (Negative); Color Urine Colorless (Yellow); Glucose Urine UA Negative (Negative); Ketones Urine Negative (Negative); Leukocyte Esterase Ur Negative LEU/UL (Negative); Nitrate Urine Negative (Negative); Protein Urine Negative (Negative); Urobilinogen Urine Negative mg/dL (<2.0)
[2020-03-22 16:58] LABS: Specific Grav Ur 1.003 (1.001-1.035)
[2020-03-23] VITALS (12 sets, daily range): BP systolic 89–125; BP diastolic 58–86; PULSE 71–102; RESP 16–21; TEMP 36.7–36.8; O2SAT 98–100
[2020-03-23 08:14] LABS: Basophils Absolute Auto 0.1 K/mm3 (0.0-0.1); Basophils Percent Auto 0.5 % (0.2-1.2); Eosinophils Absolute Auto 0.2 K/mm3 (0-0.3); Hematocrit 28.6 % (37.0-47.0); Hemoglobin 9.7 g/dL (12.0-15.0); Immature Granulocyte Absolute 0.07 K/mm3 (0.00-0.031); Immature Granulocyte Percent A 0.7 % (0-0.5); Lymphocytes Percent Auto 12.7 % (18.3-44.2); Mean Corpuscular HGB Conc 33.9 g/dl (32-36); Mean Corpuscular Volume 94.4 fl (80-100); Mean Platelet Volume 9.4 fl (7.4-10.4); Monocytes Absolute Auto 0.5 K/mm3 (0.1-0.6); Monocytes Percent Auto 5.3 % (2.6-8.5); Neutrophils Absolute Auto 8.1 K/mm3 (1.3-6.7); Neutrophils Percent Auto 78.8 % (45.5-73.1); Platelet Count Result 317 k/mm3 (150-375); Red Blood Count 3.03 M/mm3 (4.2-5.4); Red Cell Distribution Width 12.9 % (11.5-14.5); White Blood Count 10.2 K/mm3 (4.5-10.0)
[2020-03-23 08:26] LABS: Anion Gap 8.8 mmol/L (7-16); Blood Urea Nitrogen 2 mg/dL (7-17); Calcium 8.2 mg/dL (8.4-10.2); Carbon Dioxide 21 mmol/L (22-30); Chloride 105 mmol/L (98-107); Estimated CRCL calculation 164 ml/min; Estimated Glomerular Filt Rate > 60; Glucose 94 mg/dL (65-105); Potassium 3.8 mmol/L (3.4-5.0); Sodium 131 mmol/L (137-145)
--- NOTE | 2020-03-23 09:46 | PM.DS ---
DS: Admitting Diagnosis Admitting Diagnosis Admitting Diagnosis: Unspecified convulsions DS: Summary Time Spent with Patient Time attestation: Total time spent providing and/or coordinating discharge services: Exam Const: General: no acute distress Eyes: General: appearance normal, both eyes and all related structures Neck: Neck: supple and no JVD Thyroid: thyroid normal Resp: Effort & Inspection: normal respiratory effort Auscultation: clear to auscultation bilaterally Cardio: Rate: regular rate Rhythm: regular rhythm GI: Inspection: non-distended GI Palp: Yes Soft to palpation, No Tenderness to palpation present (GI) and No Guarding due to palpation present (GI) Auscultation: normal bowel sounds : General: Yes bladder normal to palpation External Female Exam: normal external appearance Speculum Exam - Vagina: normal vaginal discharge and No vaginal bleeding Speculum Exam - Cervix: nontender Bimanual exam- vagina & uterus: bladder normal to palpation and No Cervical tenderness present OB/external & speculum: No vaginal bleeding Skin: General skin exam: no rashes or lesions noted Extrem: General: normal to inspection and no edema Psych: Mental Status: mental status grossly normal Affect: normal affect DS: Data Data Completed and Pending Labs on day of discharge: Labs from last 24 hours 03/23/20 03/23/20 03/22/20 07:55 07:55 16:30 WBC 10.2 H RBC 3.03 L Hgb 9.7 L Hct 28.6 L MCV 94.4 MCH 32.0 MCHC 33.9 RDW 12.9 Plt Count 317 MPV 9.4 Immature Gran % (Auto) 0.7 H Neut % (Auto) 78.8 H Lymph % (Auto) 12.7 L Coffee % (Auto) 5.3 Eos % (Auto) 2.0 Baso % (Auto) 0.5 Lymph # (Auto) 1.30 Coffee # (Auto) 0.5 Eos # (Auto) 0.2 Baso # (Auto) 0.1 Abs Immat Gran (auto) 0.07 H Absolute Neuts (auto) 8.1 H Absolute Nucleated RBC 0.0 Nucleated RBC % 0.0 Sodium 131 L Potassium 3.8 Chloride 105 Carbon Dioxide 21 L Anion Gap 8.8 BUN 2 L Creatinine 0.40 L Estim Creat Clear Calc 164 Estimated GFR > 60 Glucose 94 Calcium 8.2 L Total Bilirubin AST ALT Alkaline Phosphatase Total Protein Albumin Urine Color Colorless Urine Appearance Clear Urine pH 7.0 Ur Specific [place] 1.003 Urine Protein Negative Urine Glucose (UA) Negative Urine Ketones Negative Ur Blood (Man) Negative Urine Nitrate Negative Urine Bilirubin Negative Urine Urobilinogen Negative Leukocyte Esterase Rfl Negative Blood Type Antibody Screen 03/22/20 03/22/20 08:50 08:50 WBC RBC Hgb Hct MCV MCH MCHC RDW Plt Count MPV Immature Gran % (Auto) Neut % (Auto) Lymph % (Auto) Coffee % (Auto) Eos % (Auto) Baso % (Auto) Lymph # (Auto) Coffee # (Auto) Eos # (Auto) Baso # (Auto) Abs Immat Gran (auto) Absolute Neuts (auto) Absolute Nucleated RBC Nucleated RBC % Sodium 136 L Potassium 3.0 L Chloride 105 Carbon Dioxide 11 L Anion Gap 23.0 H BUN 3 L Creatinine 0.50 L Estim Creat Clear Calc Not Reportable Estimated GFR > 60 Glucose 202 H Calcium 8.7 Total Bilirubin 0.2 AST 25 ALT 23 Alkaline Phosphatase 92 Total Protein 7.0 Albumin 3.9 Urine Color Urine Appearance Urine pH Ur Specific [place] Urine Protein Urine Glucose (UA) Urine Ketones Ur Blood (Man) Urine Nitrate Urine Bilirubin Urine Urobilinogen Leukocyte Esterase Rfl Blood Type A Positive Antibody Screen Negative Discharge Plan Discharge Attending physician on discharge: Davie Vega Consulting providers: Carrol Delacruz ; Ankit Mora Discharging Clinician: Davie Vega Patient Disposition: Home, Self-Care Activity: unlimited Diet: heart healthy Patient Instructions: Antibiotic Form, Recurrent Seizures in Adults (DC) Stand Alone Forms: General Disch
--- NOTE | 2020-03-23 09:48 | PM.OBPNVD ---
OB - PN: Subj Subjective Date/time seen: 03/23/20 09:48 Interval history: more with it Patient comments: no complaints OB - PN: Obj Data Labs CBC & Chem 7: 03/23/20 07:55 03/23/20 07:55 Labs: Laboratory Results - last 24 hr 03/22/20 03/22/20 03/23/20 08:50 16:30 07:55 WBC 10.2 H RBC 3.03 L Hgb 9.7 L Hct 28.6 L MCV 94.4 MCH 32.0 MCHC 33.9 RDW 12.9 Plt Count 317 MPV 9.4 Immature Gran % (Auto) 0.7 H Neut % (Auto) 78.8 H Lymph % (Auto) 12.7 L [place] % (Auto) 5.3 Eos % (Auto) 2.0 Baso % (Auto) 0.5 Lymph # (Auto) 1.30 [place] # (Auto) 0.5 Eos # (Auto) 0.2 Baso # (Auto) 0.1 Abs Immat Gran (auto) 0.07 H Absolute Neuts (auto) 8.1 H Absolute Nucleated RBC 0.0 Nucleated RBC % 0.0 Sodium Potassium Chloride Carbon Dioxide Anion Gap BUN Creatinine Estim Creat Clear Calc Estimated GFR Glucose Calcium Urine Color Colorless Urine Appearance Clear Urine pH 7.0 Ur Specific [place] 1.003 Urine Protein Negative Urine Glucose (UA) Negative Urine Ketones Negative Ur Blood (Man) Negative Urine Nitrate Negative Urine Bilirubin Negative Urine Urobilinogen Negative Leukocyte Esterase Rfl Negative Blood Type A Positive Antibody Screen Negative 03/23/20 07:55 WBC RBC Hgb Hct MCV MCH MCHC RDW Plt Count MPV Immature Gran % (Auto) Neut % (Auto) Lymph % (Auto) [place] % (Auto) Eos % (Auto) Baso % (Auto) Lymph # (Auto) [place] # (Auto) Eos # (Auto) Baso # (Auto) Abs Immat Gran (auto) Absolute Neuts (auto) Absolute Nucleated RBC Nucleated RBC % Sodium 131 L Potassium 3.8 Chloride 105 Carbon Dioxide 21 L Anion Gap 8.8 BUN 2 L Creatinine 0.40 L Estim Creat Clear Calc 164 Estimated GFR > 60 Glucose 94 Calcium 8.2 L Urine Color Urine Appearance Urine pH Ur Specific [place] Urine Protein Urine Glucose (UA) Urine Ketones Ur Blood (Man) Urine Nitrate Urine Bilirubin Urine Urobilinogen Leukocyte Esterase Rfl Blood Type Antibody Screen Imaging Radiologist's impression: Impressions Head CT 03/22/20 09:51 IMPRESSION: No significant intracranial abnormality Obstetrics US/Biophysical Profile 03/22/20 09:54 IMPRESSION: Normal biophysical profile score of 8 out of 8 OB - PN A/P Plan Plan: discharge home and follow up 6 weeks (tuesday) Time Spent With Patient Time: Total time spent is greater than 50% in coordination of care (as documented) at patient's floor/unit and/or counseling patient: Review of Systems Review of Systems: All systems reviewed & are unremarkable except as noted in HPI and below Exam Const: General: no acute distress Eyes: General: appearance normal, both eyes and all related structures Neck: Neck: supple and no JVD Thyroid: thyroid normal Resp: Effort & Inspection: normal respiratory effort Auscultation: clear to auscultation bilaterally Cardio: Rate: regular rate Rhythm: regular rhythm GI: Inspection: non-distended GI Palp: Yes Soft to palpation, No Tenderness to palpation present (GI) and No Guarding due to palpation present (GI) Auscultation: normal bowel sounds : General: Yes bladder normal to palpation External Female Exam: normal external appearance Speculum Exam - Vagina: normal vaginal discharge and No vaginal bleeding Speculum Exam - Cervix: nontender Bimanual exam- vagina & uterus: bladder normal to palpation and No Cervical tenderness present OB/external & speculum: No vaginal bleeding Skin: General skin exam: no rashes or lesions noted Extrem: General: normal to inspection and no edema Psych: Mental Status: mental status grossly normal Affect: normal affect
--- NOTE | 2020-03-23 10:05 | PHAR ---
The patient's home med of Lithobid 300mg has been verified.
[2020-03-23] MEDS: MULTIVIT/MIN/PREN/FOL AC/IRON TABLET 1 TAB PO (10:15)
[2020-03-23] MEDS: FERROUS SULFATE 324 MG TABLET PO (10:15)
--- NOTE | 2020-03-23 18:05 | WPDNEURCNPN ---
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 - Conversion disorder with seizures or convulsions Status: Acute Additional Plan based on the history alone I suspect these are nonepileptic seizure rather than true seizures and these are most likely related to her underlying bipolar disorder in any event I am very hesitant to start her any anti epileptic drugs for that reason and also the fact that she is 29 weeks I told her that she should not be driving and the her mother can call our office we can arrange for an EEG as an outpatient the patient was discharged after I discussed the case with the plant pathology teacher and also the nurse Consult date: 03/23/20 Time Seen: 17:00 HPI: Theresa Kelly is a 39 year old female was seen in the ICU she was back to her usual self in a better mood and affect denies any headache nausea vomiting chest pain shortness of breath fever chills sore throat she feels that whenever she had is related to her anxiety and stress she is known to have schizophrenia for which she is on lithium and was treated for several weeks in an psychiatric facility not too long ago she is also 29 weeks at the time of examination she is doing well her CT brain was negative the seizure episode at best I could judged by the description from multiple caregivers who told me and also the patient are most likely nonepileptic seizure rather than the true seizures She had similar spells in the past and related to some metabolic errors next I told the patient and also the nurse that the patient can have an EEG as an outpatient and our office can arrange that Review of Systems Review of Systems: All systems reviewed & are unremarkable except as noted in HPI and below PMFSH Past Medical History Medical History Bipolar disorder No significant past medical history Schizophrenia Surgical History Surgical History History of thyroidectomy Family History Family History Mother Family history of thyroid disease Grandparent Family history of glaucoma Family history of coronary artery disease Family history of congestive heart failure Social History Social History Smoking packs per day: 3 Smoking cigarettes per day: 60.0 Years smoked: 16 Smoking pack-years: 48.00 Smoking status: Current every day smoker Tobacco type: cigarettes Alcohol intake: never Substance use: never Gender identity (if verbalized by the patient): Female Spiritual care concerns: No Meds Home Medications and Allergies Home Medications Medication Instructions Recorded Confirmed Type Classic 1 tablet PO DAILY 03/22/20 03/22/20 History ferrous sulfate 325 mg PO BID 03/22/20 03/22/20 History lithium carbonate 600 mg PO DAILY 03/22/20 03/22/20 History lithium carbonate 900 mg PO HS 03/22/20 03/22/20 History Allergies Allergy/AdvReac Type Severity Reaction Status Date / Time No Known Allergies Allergy Verified 03/22/20 09:07 Vital Signs Vital Signs - 24 hr 03/22/20 19:36 03/22/20 20:00 03/22/20 21:30 Temperature Pulse Rate 93 94 89 Respiratory Rate 24 H Blood Pressure 131/86 Blood Pressure [Left Arm] 127/84 Blood Pressure [Right Arm] Pulse Oximetry 98 03/22/20 22:04 03/22/20 23:54 03/23/20 02:00 Temperature 36.7 C Pulse Rate 78 82 75 Respiratory Rate 20 16 16 Blood Pressure 127/84 127/84 123/86 Blood Pressure [Left Arm] Blood Pressure [Right Arm] Pulse Oximetry 100 100 100
[2020-03-26 20:33] LABS: Amphetamines negative; Barbiturates negative; Benzodiazepines negative; Cocaine Metabolites negative; Marijuana Metabolites negative; PCP negative
== END 2020-03-23 16:15 | disposition home or self-care (01) | DRG 833 ==
LOC: ANHLDR 09:31 → ANHICU 10:08
PROVIDERS: Internal Medicine Critical Care Medicine; Admitting Provider Obstetrics & Gynecology; PCP Family Medicine; Visit Provider Obstetrics & Gynecology
DX: O99.343 Other mental disorders complicating pregnancy, third trimester (principal); F44.5 Conversion disorder with seizures or convulsions; F31.9 Bipolar disorder, unspecified; F20.9 Schizophrenia, unspecified; O99.333 Smoking (tobacco) complicating pregnancy, third trimester; F17.210 Nicotine dependence, cigarettes, uncomplicated; Z3A.29 29 weeks gestation of pregnancy; Z79.899 Other long term (current) drug therapy
CPT/HCPCS: 36415; 59025; 70450; 76815; 76819; 80048; 80053; 80178; 80307; 81003; 84112; 85025; 86850; 86900; 86901; A9270; J2060; J3360

== ENCOUNTER 2020-05-04 17:24 | Outpatient (RCR) | payer BC, SELFPAY ==
[2020-05-04 17:46] VITALS: BP 110/69; PULSE 94
== END 2020-05-21 15:21 | disposition home or self-care (01) ==
LOC: ANHOBOP 17:24
PROVIDERS: PCP Family Medicine; Visit Provider Obstetrics & Gynecology
DX: O24.419 Gestational diabetes mellitus in pregnancy, unspecified control (principal); Z3A.36 36 weeks gestation of pregnancy
CPT/HCPCS: 59025

== ENCOUNTER 2020-05-08 19:17 | Emergency (ER) | payer BC, SELFPAY ==
--- NOTE | ~2020-05-08 | XR_ITS ---
EXAMINATION: XR chest 1V portable EXAM DATE: 05/08/2020 20:46 INDICATION: Shortness of breath. 38 weeks . TECHNIQUE: Portable AP frontal chest x-ray was obtained. Comparison is made to prior examination from 05/29/2019. FINDINGS: The lungs are clear. There are no pleural effusions. The cardiomediastinal silhouette is within normal limits. There is no pneumothorax suspected. The bones and soft tissues are unremarkab le. IMPRESSION: No acute cardiopulmonary findings. Reviewed, dictated and finalized at location A.
[2020-05-08 19:25] VITALS: BP 131/70; PULSE 88; RESP 21; TEMP 36.6; O2SAT 98
[2020-05-08] MEDS: SODIUM CHLORIDE 0.9% IV 1,000 ML 999 ML IV CONT (19:59)
[2020-05-08 20:03] LABS: Basophils Absolute Auto 0.1 K/mm3 (0.0-0.1); Basophils Percent Auto 0.5 % (0.2-1.2); Eosinophils Absolute Auto 0.2 K/mm3 (0-0.3); Eosinophils Percent Auto 1.8 % (0-4.4); Hematocrit 31.8 % (37.0-47.0); Hemoglobin 10.7 g/dL (12.0-15.0); Immature Granulocyte Absolute 0.11 K/mm3 (0.00-0.031); Immature Granulocyte Percent A 0.9 % (0-0.5); Lymphocytes Absolute Auto 1.77 K/mm3 (0.9-3.2); Mean Corpuscular HGB Conc 33.6 g/dl (32-36); Mean Corpuscular Hemoglobin 31.8 pg (26-34); Mean Corpuscular Volume 94.6 fl (80-100); Mean Platelet Volume 9.6 fl (7.4-10.4); Monocytes Absolute Auto 0.7 K/mm3 (0.1-0.6); Monocytes Percent Auto 6.1 % (2.6-8.5); Neutrophils Percent Auto 75.7 % (45.5-73.1); Platelet Count Result 340 k/mm3 (150-375); Red Blood Count 3.36 M/mm3 (4.2-5.4); Red Cell Distribution Width 13.6 % (11.5-14.5); White Blood Count 11.8 K/mm3 (4.5-10.0)
[2020-05-08 20:16] LABS: Alanine Aminotransferase 25 U/L (4-35); Albumin Level 3.3 g/dL (3.5-5.1); Alkaline Phosphatase 171 U/L (38-126); Anion Gap 5 mmol/L (8-16); Aspartate Amino Transferase 38 U/L (14-36); Bilirubin,Total 0.3 mg/dL (0.2-1.3); Blood Urea Nitrogen 7 mg/dL (7-17); Calcium 8.5 mg/dL (8.4-10.2); Carbon Dioxide 20 mmol/L (22-30); Chloride 107 mmol/L (98-107); Estimated CRCL calculation 138 ml/min; Estimated Glomerular Filt Rate > 60; Glucose 95 mg/dL (65-105); Potassium 3.6 mmol/L (3.4-5.0); Sodium 132 mmol/L (137-145)
[2020-05-08 20:16] LABS: Add Urine Microscopic? NO; Appearance Urine Clear (Clear); Bilirubin Urine Negative (Negative); Blood Urine Negative (Negative); Color Urine Colorless (Yellow); Glucose Urine UA Negative (Negative); Ketones Urine Negative (Negative); Leukocyte Esterase Ur Negative LEU/UL (Negative); Nitrate Urine Negative (Negative); Protein Urine Negative (Negative); Urobilinogen Urine Negative mg/dL (<2.0)
[2020-05-08 20:18] LABS: Specific Grav Ur 1.003 (1.001-1.035)
--- NOTE | 2020-05-08 21:31 | ED.GENADULT ---
HPI - General Adult General Chief complaint: Unspecified Stated complaint: feels like can't breath Time Seen by Provider: 05/08/20 19:37 Source: RN notes reviewed History of Present Illness HPI narrative: Patient presents emergency department from home for multiple complaints patient states she is currently 38 weeks and is followed by Dr. Gertrude Rocha. Patient states that she has had intermittent headache in the right side of her head today. Denies any trauma or injury states she is taken no previous pain medication. She also notes that this morning when she awoke she felt short of breath. She states that resolved after approximately 20 minutes and is had no shortness of breath further today. She states that she also has had pain in her right foot secondary to a blister. She denies any fevers or chills ear pain rhinorrhea chest pain abdominal pain nausea vomiting or any other symptoms Related Data Home Medications Medication Instructions Recorded Confirmed Classic 1 tablet PO DAILY 03/22/20 03/22/20 ferrous sulfate 325 mg PO BID 03/22/20 03/22/20 lithium carbonate 600 mg PO DAILY 03/22/20 03/22/20 lithium carbonate 900 mg PO HS 03/22/20 03/22/20 Allergies Allergy/AdvReac Type Severity Reaction Status Date / Time No Known Allergies Allergy Verified 05/08/20 19:28 Review of Systems Review of Systems: Narrative: Gen.: Denies fevers or chills Eyes: Denies eye pain or visual change ENT: Denies congestion Respiratory: Denies shortness of breath or cough CV: Denies chest pain or palpitations GI: Denies abdominal pain nausea, emesis or diarrhea reports Musculoskeletal: Denies back pain or muscle pain Neuro: Reports headache Skin: Reports blistering right foot Except as documented, all other systems reviewed and negative [facility] Past Medical History Medical History Bipolar disorder No significant past medical history Schizophrenia Social History Social History Smoking packs per day: 3 Smoking cigarettes per day: 60.0 Years smoked: 16 Smoking pack-years: 48.00 Smoking status: Current every day smoker Tobacco type: cigarettes Alcohol intake: never Substance use: never Gender identity (if verbalized by the patient): Female Spiritual care concerns: No Exam Narrative: Exam Narrative: APPEARANCE: No acute distress, nontoxic, resting in bed EYES: EOMI, Kimi HEENT: Normocephalic, atraumatic, nares patent, oral mucosa moist RESPIRATORY: No respiratory distress Clear to auscultation bilaterally with no rhonchi wheezing or rales. CARDIOVASCULAR: Regular rate and rhythm without murmurs rubs or gallops. ABDOMINAL: Distended with gravid uterus palpated, nontender to palpation, no rebound or guarding MUSCULOSKELETAl: Moves all extremities. No clubbing, cyanosis or edema. NEURO: Awake and alert. Following commands, speech normal, no focal deficits SKIN:: Warm, dry. The right medial dorsal heel has a blister present with surrounding erythema no active drainage dorsalis pedis pulse 2+ PSYCHIATRIC: Normal affect/mood, Course Course Emergency Course: Patient states she is feeling better following fluids and Tylenol. Drinking a soda at this time Discussed with Dr. Medrano presentation work-up. Discussed heart tones agrees with plan for discharge at this time with Keflex started Discussed with patient results of workup and diagnosis. Discussed need for follow-up with primary care, proper use of medication, and reasons to return to the emergency department. Patient understands and agrees to current treatment plan Vital Signs Vital signs: Vital Signs Temperature 97.9 F 05/08/20 19:25 Pulse Rate 88 05/08/20 19:25 Respiratory Rate 21 H 05/08/20 19:25 Blood Pressure 131/70 05/08/20 19:25 Pulse Oximetry 98 05/08/20 19:25 Temperature 97.9 F 05/08/20 19:
[2020-05-08] MEDS: CEPHALEXIN 500 MG CAPSULE PO (21:39)
[2020-05-08 21:40] VITALS: BP 134/86; PULSE 78; RESP 16; TEMP 36.6; O2SAT 99
== END 2020-05-08 21:41 | disposition home or self-care (01) ==
PROVIDERS: Emergency Provider Emergency Medicine; PCP Family Medicine
DX: O26.893 Other specified pregnancy related conditions, third trimester (principal); R51 Headache; O99.713 Diseases of the skin and subcutaneous tissue complicating pregnancy, third trimester; L03.115 Cellulitis of right lower limb; O99.343 Other mental disorders complicating pregnancy, third trimester; F31.9 Bipolar disorder, unspecified; F20.9 Schizophrenia, unspecified; O99.333 Smoking (tobacco) complicating pregnancy, third trimester; F17.210 Nicotine dependence, cigarettes, uncomplicated; Z3A.38 38 weeks gestation of pregnancy
CPT/HCPCS: 36415; 71045; 80053; 81003; 85025; 96361; 96365; 99284; A9270; J0131; J7030

== ENCOUNTER 2020-05-20 19:08 | Inpatient (IN) | payer BC, SELFPAY ==
[2020-05-20] VITALS (13 sets, daily range): BP systolic 97–128; BP diastolic 49–81; PULSE 71–87
--- NOTE | 2020-05-20 22:26 | PHAR ---
HOME LITHIUM ER 300MG TABLETS VERIFIED IN PHARMACY AND SENT BACK TO LDR FOR PATIENT USE- (DAP)
[2020-05-20 22:58] LABS: Basophils Absolute Auto 0.1 K/mm3 (0.0-0.1); Basophils Percent Auto 0.4 % (0.2-1.2); Eosinophils Absolute Auto 0.2 K/mm3 (0-0.3); Hematocrit 32.9 % (37.0-47.0); Hemoglobin 10.8 g/dL (12.0-15.0); Immature Granulocyte Absolute 0.11 K/mm3 (0.00-0.031); Immature Granulocyte Percent A 0.9 % (0-0.5); Lymphocytes Absolute Auto 2.28 K/mm3 (0.9-3.2); Lymphocytes Percent Auto 19.1 % (18.3-44.2); Mean Corpuscular HGB Conc 32.8 g/dl (32-36); Mean Corpuscular Hemoglobin 31.8 pg (26-34); Mean Corpuscular Volume 96.8 fl (80-100); Mean Platelet Volume 9.9 fl (7.4-10.4); Monocytes Absolute Auto 0.8 K/mm3 (0.1-0.6); Monocytes Percent Auto 6.5 % (2.6-8.5); Neutrophils Absolute Auto 8.5 K/mm3 (1.3-6.7); Neutrophils Percent Auto 71.1 % (45.5-73.1); Platelet Count Result 355 k/mm3 (150-375); Red Cell Distribution Width 13.4 % (11.5-14.5); White Blood Count 11.9 K/mm3 (4.5-10.0)
[2020-05-20] MEDS: ONDANSETRON INJ 4 MG/2 ML VIAL IV PUSH (23:03)
[2020-05-20 23:10] LABS: Alanine Aminotransferase 20 U/L (4-35); Albumin Level 3.3 g/dL (3.5-5.1); Alkaline Phosphatase 187 U/L (38-126); Anion Gap 9 mmol/L (8-16); Aspartate Amino Transferase 24 U/L (14-36); Bilirubin,Total 0.3 mg/dL (0.2-1.3); Blood Urea Nitrogen 4 mg/dL (7-17); Calcium 8.5 mg/dL (8.4-10.2); Carbon Dioxide 19 mmol/L (22-30); Chloride 104 mmol/L (98-107); Estimated Glomerular Filt Rate > 60; Glucose 137 mg/dL (65-105); Potassium 3.3 mmol/L (3.4-5.0); Sodium 132 mmol/L (137-145); Uric Acid 4.7 mg/dL (2.5-7.5)
[2020-05-21] VITALS (55 sets, daily range): BP systolic 80–141; BP diastolic 44–110; PULSE 55–110; RESP 14–16; TEMP 36.3–37.1; O2SAT 96–100
[2020-05-21 02:37] LABS: HIV 1/2 Ab P24 Ag Result Negative (Negative)
[2020-05-21] MEDS: AMPICILLIN 2 GM/NS 100 ML 2 GM/100 ML BAG IVPB (04:03)
[2020-05-21] MEDS: LACTATED RINGERS 1,000 ML 125 ML IV CONT ×3 (04:03→09:11)
--- NOTE | 2020-05-21 06:14 | PM.IMHP ---
H&P: HPI History of Present Illness Date/Time: 05/21/20 06:14 Chief complaint: Contractions Narrative: Theresa Kelly is a 40 year old female 012 last menstrual period was 08/11/2019/ EDC is 05/30/2020, presents at 3857 weeks gestation with elevated blood pressures. Her been complicated by her psychiatric state she was in patient hospitalized in [place] she was very unstable lie lives with her mother and will have a difficult course. She is positive for group B strep. She has had some mildly elevated blood pressures with negative PIH testing. Review of Systems Review of Systems: All systems reviewed & are unremarkable except as noted in HPI and below PMFSH Past Medical History Medical History Bipolar disorder No significant past medical history Schizophrenia Surgical History Surgical History History of thyroidectomy Family History Family History Mother Family history of thyroid disease Grandparent Family history of glaucoma Family history of coronary artery disease Family history of congestive heart failure Social History Social History Smoking packs per day: 0.5 Smoking cigarettes per day: 10.0 Years smoked: 16 Smoking pack-years: 8.00 Smoking status: Current every day smoker Tobacco type: cigarettes Second hand tobacco smoke exposure: Yes Alcohol intake: never Substance use: never Gender identity (if verbalized by the patient): Female Spiritual care concerns: No Meds Home Medications and Allergies Home Medications Medication Instructions Recorded Confirmed Type Classic 1 tablet PO DAILY 03/22/20 05/21/20 History ferrous sulfate 325 mg PO BID 03/22/20 05/21/20 History lithium carbonate 600 mg PO DAILY 03/22/20 05/21/20 History lithium carbonate 900 mg PO HS 03/22/20 05/21/20 History Allergies Allergy/AdvReac Type Severity Reaction Status Date / Time No Known Allergies Allergy Verified 05/21/20 04:16 Vital Signs Vital Signs - 24 hr 05/20/20 19:30 05/20/20 20:00 05/20/20 20:15 Temperature Pulse Rate 74 87 71 Blood Pressure 123/75 126/76 113/71 05/20/20 20:42 05/20/20 20:45 05/20/20 21:01 Temperature Pulse Rate 73 81 78 Blood Pressure 117/73 128/59 L 111/81 05/20/20 21:15 05/20/20 21:54 05/20/20 22:00 Temperature Pulse Rate 86 73 76 Blood Pressure 125/75 117/61 117/63 05/20/20 22:15 05/20/20 22:30 05/20/20 22:45 Temperature Pulse Rate 77 87 80 Blood Pressure 97/49 L 121/70 119/60 05/20/20 23:00 05/21/20 04:07 05/21/20 04:15 Temperature 98.8 F Pulse Rate 84 76 79 Blood Pressure 124/73 121/82 128/84 05/21/20 06:13 Temperature Pulse Rate 79 Blood Pressure 129/75 Exam Const: General: no acute distress Eyes: General: appearance normal, both eyes and all related structures Neck: Neck: supple and no JVD Thyroid: thyroid normal Resp: Effort & Inspection: normal respiratory effort Auscultation: clear to auscultation bilaterally Cardio: Rate: regular rate Rhythm: regular rhythm GI: Inspection: non-distended GI Palp: Yes Soft to palpation, No Tenderness to palpation present (GI) and No Guarding due to palpation present (GI) Auscultation: normal bowel sounds : Speculum Exam - Cervix: Cervical os closed ( Cervix is 3 to 4/75%/ -1. AROM clear. FHTs reassuring) Skin: General skin exam: no rashes or lesions noted Extrem: General: normal to inspection and no edema Psych: Mental Status: mental status grossly normal Affect: normal affect H&P: Results Labs Labs: Short CBC 05/20/20 Range/Units 22:50 WBC 11.9 H (4.5-10.0) K/mm3 Hgb 10.8 L (12.0-15.0) g/dL Hct 32.9 L (37.0-47.0) % Plt Count 355 (150-375) k/mm3 BMP 0
[2020-05-21] MEDS: OXYTOCIN 30 UNITS/NS 500 ML 30 UNITS/500 ML BAG IV CONT (06:47)
[2020-05-21 07:56] LABS: Rapid Plasma Reagin Non-Reactive (NonReactive)
[2020-05-21] MEDS: AMPICILLIN 1 GM/NS 50 ML 1 GM/50 ML BAG IVPB ×2 (07:58→12:10)
--- NOTE | 2020-05-21 09:37 | PC.NURSE ---
[place] 600 mg po given as ordered
--- NOTE | 2020-05-21 11:57 | P.PNOB_ITS ---
OB - PN: Subj Subjective Date/time seen: 05/21/20 11:57 last rn check 6.5 fhts ok OB - PN: Obj Data Labs CBC & Chem 7: 05/20/20 22:50 05/20/20 22:50 Labs: Laboratory Results - last 24 hr 05/20/20 05/20/20 05/20/20 22:49 22:50 22:50 WBC 11.9 H RBC 3.40 L Hgb 10.8 L Hct 32.9 L MCV 96.8 MCH 31.8 MCHC 32.8 RDW 13.4 Plt Count 355 MPV 9.9 Immature Gran % (Auto) 0.9 H Neut % (Auto) 71.1 Lymph % (Auto) 19.1 [place] % (Auto) 6.5 Eos % (Auto) 2.0 Baso % (Auto) 0.4 Lymph # (Auto) 2.28 [place] # (Auto) 0.8 H Eos # (Auto) 0.2 Baso # (Auto) 0.1 Abs Immat Gran (auto) 0.11 H Absolute Neuts (auto) 8.5 H Absolute Nucleated RBC 0.0 Nucleated RBC % 0.0 Sodium Potassium Chloride Carbon Dioxide Anion Gap BUN Creatinine Estim Creat Clear Calc Estimated GFR Glucose Uric Acid Calcium Total Bilirubin AST ALT Alkaline Phosphatase Total Protein Albumin RPR Non-reactive HIV 1&2 Ab/P24 Ag 4thGn Negative Blood Type Antibody Screen 05/20/20 05/20/20 22:50 22:50 WBC RBC Hgb Hct MCV MCH MCHC RDW Plt Count MPV Immature Gran % (Auto) Neut % (Auto) Lymph % (Auto) [place] % (Auto) Eos % (Auto) Baso % (Auto) Lymph # (Auto) [place] # (Auto) Eos # (Auto) Baso # (Auto) Abs Immat Gran (auto) Absolute Neuts (auto) Absolute Nucleated RBC Nucleated RBC % Sodium 132 L Potassium 3.3 L Chloride 104 Carbon Dioxide 19 L Anion Gap 9 BUN 4 L Creatinine 0.50 L Estim Creat Clear Calc Not Reportable Estimated GFR > 60 Glucose 137 H Uric Acid 4.7 Calcium 8.5 Total Bilirubin 0.3 AST 24 ALT 20 Alkaline Phosphatase 187 H Total Protein 6.0 L Albumin 3.3 L RPR HIV 1&2 Ab/P24 Ag 4thGn Blood Type A Positive Antibody Screen Negative OB - PN A/P Time Spent With Patient Time: Total time spent is greater than 50% in coordination of care (as documented) at patient's floor/unit and/or counseling patient:
--- NOTE | 2020-05-21 12:13 | WPDANESEPP ---
Anes - Eval Pre Procedure Procedure: labor epidural Date/Time: 05/21/20 12:13 Surgeon: karina purdy Pre Op Diagnosis: Contractions Patient Data Age: 40 Gender: F Height: Weight: Last Vital Signs Temp 36.9 C 05/21/20 06:50 Pulse 60 05/21/20 12:00 BP 101/55 L 05/21/20 12:00 Pulse Ox 96 05/21/20 09:36 Allergies Allergy/AdvReac Type Severity Reaction Status Date / Time No Known Allergies Allergy Verified 05/21/20 04:16 Home Medications Medication Instructions Recorded Confirmed Type Classic 1 tablet PO DAILY 03/22/20 05/21/20 History ferrous sulfate 325 mg PO BID 03/22/20 05/21/20 History lithium carbonate 600 mg PO DAILY 03/22/20 05/21/20 History lithium carbonate 900 mg PO HS 03/22/20 05/21/20 History Laboratory Tests 05/20/20 05/20/20 05/20/20 22:49 22:50 22:50 WBC 11.9 K/mm3 H K/mm3 (4.5-10.0) RBC 3.40 M/mm3 L M/mm3 (4.2-5.4) Hgb 10.8 g/dL L g/dL (12.0-15.0) Hct 32.9 % L % (37.0-47.0) MCV 96.8 fl fl (80-100) MCH 31.8 pg pg (26-34) MCHC 32.8 g/dl g/dl (32-36) RDW 13.4 % % (11.5-14.5) Plt Count 355 k/mm3 k/mm3 (150-375) MPV 9.9 fl fl (7.4-10.4) Immature Gran % (Auto) 0.9 % H % (0-0.5) Neut % (Auto) 71.1 % % (45.5-73.1) Lymph % (Auto) 19.1 % % (18.3-44.2) [place] % (Auto) 6.5 % % (2.6-8.5) Eos % (Auto) 2.0 % % (0-4.4) Baso % (Auto) 0.4 % % (0.2-1.2) Lymph # (Auto) 2.28 K/mm3 K/mm3 (0.9-3.2) [place] # (Auto) 0.8 K/mm3 H K/mm3 (0.1-0.6) Eos # (Auto) 0.2 K/mm3 K/mm3 (0-0.3) Baso # (Auto) 0.1 K/mm3 K/mm3 (0.0-0.1) Abs Immat Gran (auto) 0.11 K/mm3 H K/mm3 (0.00-0.031) Absolute Neuts (auto) 8.5 K/mm3 H K/mm3 (1.3-6.7) Absolute Nucleated RBC 0.0 K/mm3 K/mm3 (0.0-0.012) Nucleated RBC % 0.0 % % (0.0-0.2) Sodium Potassium Chloride Carbon Dioxide Anion Gap BUN Creatinine Estim Creat Clear Calc Estimated GFR Glucose Uric Acid Calcium Total Bilirubin AST ALT Alkaline Phosphatase Total Protein Albumin RPR Non-reactive (NonReactive) HIV 1&2 Ab/P24 Ag 4thGn Negative (Negative) Blood Type Antibody Screen 05/20/20 05/20/20 22:50 22:50 WBC RBC Hgb Hct MCV MCH MCHC RDW Plt Count MPV Immature Gran % (Auto) Neut % (Auto) Lymph % (Auto) [place] % (Auto) Eos % (Auto) Baso % (Auto) Lymph # (Auto) [place] # (Auto) Eos # (Auto) Baso # (Auto) Abs Immat Gran (auto) Absolute Neuts (auto) Absolute Nucleated RBC Nucleated RBC % Sodium 132 mmol/L L mmol/L (137-145) Potassium 3.3 mmol/L L mmol/L (3.4-5.0) Chloride 104 mmol/L mmol/L (98-107) Carbon Dioxide 19 mmol/L L mmol/L (22-30) Anion Gap 9 mmol/L mmol/L (8-16) BUN 4 mg/dL L mg/dL (7-17) Creatinine 0.50 mg/dL L mg/dL (0.7-1.0) Estim Creat Clear Calc Not Reportable Estimated GFR > 60 (59 - ) Glucose 137 mg/dL H mg/dL (65-105) Uric Acid 4.7 mg/dL mg/dL (2.5-7.5) Calcium 8.5 mg/dL mg/dL (8.4-10.2) Total Bilirubin 0.3 mg/dL mg/dL (0.2-1.3) AST 24 U/L U/L (14-36) ALT 20 U/L U/L (4-35) Alkaline Phosphatase 187 U/L H U/L (38-126) Total Protein 6.0 g/dL L g/dL (6.3-8.2) Albumin 3.3 g/dL L g/dL (3.5-5.1) RPR HIV 1&2 Ab/P24 Ag 4thGn
--- NOTE | 2020-05-21 12:54 | PM.OBPRVD ---
OB - Delivery Note Procedure Delivery date: 05/21/20 events: No Care (gest htn/) Intrapartal events: None Induction method: AROM Delivery augmentation: pitocin Delivery monitor: external FHT Route of delivery: Laceration description: None Specimen: No Estimated blood loss (mL): 57 Anesthesia type: Epidural Disposition: floor [place] Baby Date of : 05/21/20 Time of : 12:48 Weeks of gestation at delivery: 38 gender: Male presentation: vertex position: Right Occiput Anterior Placenta delivery description: Spontaneous cord vessel description: 3 Vessels score one minute: 9 score five minutes: 9 Narrative: amp x 2
[2020-05-21] MEDS: OXYTOCIN 30 UNITS/NS 500 ML 30 UNITS/500 ML BAG 125 UNITS IV CONT (13:22)
[2020-05-21] MEDS: diphenhydrAMINE HCl CAP 25 MG CAPSULE 50 MG PO (14:24)
[2020-05-21] MEDS: IBUPROFEN 600 MG TABLET PO (17:58)
[2020-05-21] MEDS: DOCUSATE SODIUM 100 MG CAPSULE PO (17:58)
--- NOTE | 2020-05-21 19:17 | OBPPTRN ---
Patient transferred to post room # [id number] via ( wheelchair ). Support person present. Oriented to unit, room, information board, rooming in, admission packet and security measures. Patient verbalizes understanding.
[2020-05-21] MEDS: ACETAMINOPHEN 325 MG TABLET 650 MG PO (19:18)
[2020-05-22] MEDS: ACETAMINOPHEN 325 MG TABLET 650 MG PO ×2 (02:02→14:32)
[2020-05-22] MEDS: IBUPROFEN 600 MG TABLET PO ×3 (02:02→14:32)
[2020-05-22 05:08] LABS: Hematocrit 30.2 % (37.0-47.0); Hemoglobin 9.9 g/dL (12.0-15.0)
--- NOTE | 2020-05-22 07:43 | PM.OBPNVD ---
OB - PN: Subj Subjective Date/time seen: 05/22/20 07:43 Patient comments: no complaints and pain well controlled baby status: doing well OB - PN: Obj Data Labs CBC & Chem 7: 05/22/20 04:17 05/20/20 22:50 Labs: Laboratory Results - last 24 hr 05/20/20 05/22/20 22:50 04:17 Hgb 9.9 L Hct 30.2 L RPR Non-reactive OB - PN A/P Plan day: 1 Plan: routine care Time Spent With Patient Time: Total time spent is greater than 50% in coordination of care (as documented) at patient's floor/unit and/or counseling patient: Time with patient: less than 15 minutes Review of Systems Review of Systems: All systems reviewed & are unremarkable except as noted in HPI and below Exam Const: General: no acute distress Eyes: General: appearance normal, both eyes and all related structures Neck: Neck: supple and no JVD Thyroid: thyroid normal Resp: Effort & Inspection: normal respiratory effort Auscultation: clear to auscultation bilaterally Cardio: Rate: regular rate Rhythm: regular rhythm GI: Inspection: non-distended GI Palp: Yes Soft to palpation, No Tenderness to palpation present (GI) and No Guarding due to palpation present (GI) Auscultation: normal bowel sounds : General: Yes bladder normal to palpation External Female Exam: normal external appearance Speculum Exam - Vagina: normal vaginal discharge and No vaginal bleeding Speculum Exam - Cervix: nontender Bimanual exam- vagina & uterus: bladder normal to palpation and No Cervical tenderness present OB/external & speculum: No vaginal bleeding Skin: General skin exam: no rashes or lesions noted Extrem: General: normal to inspection and no edema Psych: Mental Status: mental status grossly normal Affect: normal affect
--- NOTE | 2020-05-22 07:43 | PM.DS ---
DS: Admitting Diagnosis Admitting Diagnosis Admitting Diagnosis: Contractions term iup gest htn DS: Summary Hospital Course Reason for hospitalization: term iup/gest htn Hospital Course: unremarkable Time spent discussing smoking cessation with patient: 3 to 10 minutes Status at Discharge Functional status at discharge: independent ambulation Overall status at discharge: patient is back to baseline Time Spent with Patient Time attestation: Total time spent providing and/or coordinating discharge services: Exam Const: General: no acute distress Eyes: General: appearance normal, both eyes and all related structures Neck: Neck: supple and no JVD Thyroid: thyroid normal Resp: Effort & Inspection: normal respiratory effort Auscultation: clear to auscultation bilaterally Cardio: Rate: regular rate Rhythm: regular rhythm GI: Inspection: non-distended GI Palp: Yes Soft to palpation, No Tenderness to palpation present (GI) and No Guarding due to palpation present (GI) Auscultation: normal bowel sounds : General: Yes bladder normal to palpation External Female Exam: normal external appearance Speculum Exam - Vagina: normal vaginal discharge and No vaginal bleeding Speculum Exam - Cervix: nontender Bimanual exam- vagina & uterus: bladder normal to palpation and No Cervical tenderness present OB/external & speculum: No vaginal bleeding Skin: General skin exam: no rashes or lesions noted Extrem: General: normal to inspection and no edema Psych: Mental Status: mental status grossly normal Affect: normal affect DS: Data Data Completed and Pending Pending studies at discharge: Pending at discharge 05/21/20 14:43 Surgical [PTH] Routine Labs on day of discharge: Labs from last 24 hours 05/22/20 05/20/20 04:17 22:50 Hgb 9.9 L Hct 30.2 L RPR Non-reactive Discharge Plan Discharge Attending physician on discharge: Davie Vega Discharging Clinician: Davie Vega Patient Disposition: Home, Self-Care Activity: may shower, no straining and pelvic rest Diet: heart healthy Wound Care Instructions: follow printed instructions Patient Instructions: How to Stop Smoking (DC), Antibiotic Form Stand Alone Forms: General Discharge Information Follow-up/Referrals: Davie Vega MD [Physician] - Discharge Medications: Continued lithium carbonate 300 mg Tablet Extended Release 600 mg PO DAILY RF: 0 lithium carbonate 300 mg Tablet Extended Release 900 mg PO HS RF: 0 ferrous sulfate 325 mg (65 mg iron) Tablet 325 mg PO BID RF: 0 Classic 28 mg iron- 800 mcg Tablet 1 tablet PO DAILY RF: 0 Date of admission: 05/20/20 20:55 Primary Care Provider: Mayda,Sawyer Zavaleta Admitting Provider: Davie Vega Attending physician on admission: Davie Vega
[2020-05-22] MEDS: DOCUSATE SODIUM 100 MG CAPSULE PO ×2 (08:38→17:40)
[2020-05-22] MEDS: POLYSACCHARIDE IRON COMPLEX 150 MG CAPSULE PO ×2 (08:38→17:40)
[2020-05-22 08:45] VITALS: PULSE 66; RESP 18; O2SAT 100
[2020-05-22 09:08] VITALS: BP 115/71; PULSE 66; RESP 18; TEMP 36.9; O2SAT 100
[2020-05-22] MEDS: MULTIVIT/MIN/PREN/FOL AC/IRON TABLET 1 TAB PO (14:32)
[2020-05-22] MEDS: SIMETHICONE 80 MG TAB.CHEW PO ×2 (14:32→20:24)
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
--- NOTE | 2020-05-22 17:47 | PC.NURSE ---
Patient stated during the day she wanted Dr. Gertrude Rocha to know she wants to be discharged home with Lexapro as she is worried about depression. At the request of Care Coordination, RN made call to Dr. Gertrude Rocha for his opinion on mother's stability to provide care to her baby and to let him know of patient's request for Lexapro. Dr. Gertrude Rocha felt mother could provide care for baby as long as she remains living with her mother (support person) and if she continues taking her medications on a regular basis. Doctor will evaluate her need for depression meds after discharge. Care Coordination was informed of his recommendations.
--- NOTE | 2020-05-22 18:00 | PC.NURSE ---
Second floor nursing staff was notified by employee that patient was found wandering outside [facility] confronting people for cigarettes. At the time of notification, patient had returned to her room.
[2020-05-22 20:28] VITALS: BP 143/87; PULSE 90; RESP 18; TEMP 36.5; O2SAT 98
[2020-05-23] MEDS: SIMETHICONE 80 MG TAB.CHEW PO (02:20)
[2020-05-23] MEDS: ACETAMINOPHEN 325 MG TABLET 650 MG PO ×2 (02:20→09:15)
[2020-05-23] MEDS: IBUPROFEN 600 MG TABLET PO ×2 (02:20→09:16)
--- NOTE | 2020-05-23 05:59 | PM.OBPNVD ---
OB - PN: Subj Subjective Date/time seen: 05/23/20 05:59 Patient comments: no complaints and pain well controlled baby status: doing well OB - PN: Obj Data Labs CBC & Chem 7: 05/22/20 04:17 05/20/20 22:50 OB - PN A/P Plan day: 2 Plan: routine care, discharge home and follow up 6 weeks Time Spent With Patient Time: Total time spent is greater than 50% in coordination of care (as documented) at patient's floor/unit and/or counseling patient: Time with patient: less than 15 minutes Review of Systems Review of Systems: All systems reviewed & are unremarkable except as noted in HPI and below Exam Const: General: no acute distress Eyes: General: appearance normal, both eyes and all related structures Neck: Neck: supple and no JVD Thyroid: thyroid normal Resp: Effort & Inspection: normal respiratory effort Auscultation: clear to auscultation bilaterally Cardio: Rate: regular rate Rhythm: regular rhythm GI: Inspection: non-distended GI Palp: Yes Soft to palpation, No Tenderness to palpation present (GI) and No Guarding due to palpation present (GI) Auscultation: normal bowel sounds : General: Yes bladder normal to palpation External Female Exam: normal external appearance Speculum Exam - Vagina: normal vaginal discharge and No vaginal bleeding Speculum Exam - Cervix: nontender Bimanual exam- vagina & uterus: bladder normal to palpation and No Cervical tenderness present OB/external & speculum: No vaginal bleeding Skin: General skin exam: no rashes or lesions noted Extrem: General: normal to inspection and no edema Psych: Mental Status: mental status grossly normal Affect: normal affect
[2020-05-23 08:35] VITALS: BP 133/77; PULSE 80; RESP 18; TEMP 36.5; O2SAT 100
[2020-05-23 09:00] VITALS: PULSE 90; RESP 18; O2SAT 98
[2020-05-23] MEDS: POLYSACCHARIDE IRON COMPLEX 150 MG CAPSULE PO (09:16)
[2020-05-23] MEDS: DOCUSATE SODIUM 100 MG CAPSULE PO (09:17)
[2020-05-23] MEDS: MULTIVIT/MIN/PREN/FOL AC/IRON TABLET 1 TAB PO (09:17)
[2020-05-23] MEDS: ALPRAZolam (*CRX) 0.5 MG TABLET 1 MG PO (09:59)
--- NOTE | 2020-05-23 11:46 | PC.NURSE ---
Patient was given the opportunity to view the discharge video Mother & Baby Care, The First Two Weeks and to ask questions. Patient declined viewing the video and has been given the mother/baby guide for home reference.
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
[2020-05-26 10:45] VITALS: BP 129/64; PULSE 66; RESP 20; TEMP 36.6; O2SAT 98
--- NOTE | 2020-05-26 11:48 | PC.NURSE ---
PATIENT WAS INSTRUCTED TO GO SEE DR DULCE ANDRES IN OFFICE THIS AFTERNOON FOR EVALUATION OF ANXIETY--PATIENT STATES SHE HAS TO CHECK WITH HER MOM --INSTRUCTED TO CALL OFFICE TO LET THEM KNOW IF SHE IS COMING TO BE EVALUATED FOR POSSIBLE TREATMENT FOR ANXIETY AND DEPRESSION--PATIENT STATES SHE IS NOT DEPRESSED PATIENT APPEARS VERY ANXIOUS AND NERVOUS AT THE FOLLOW UP APPOINTMENT-SEEMED TO IN HURRY TO GET OUT OF THE OFFICE. PATIENT STATES HER MOTHER BROUGHT HER TO THE APPOINTMENT
== END 2020-05-23 16:10 | disposition home or self-care (01) | DRG 807 ==
LOC: ANHLDR 20:55 → ANHOB2 05-21 15:54
PROVIDERS: Admitting Provider Obstetrics & Gynecology; PCP Family Medicine; Visit Provider Obstetrics & Gynecology
DX: O13.4 Gestational [pregnancy-induced] hypertension without significant proteinuria, complicating childbirth (principal); Z37.0 Single live birth; O99.824 Streptococcus B carrier state complicating childbirth; O99.344 Other mental disorders complicating childbirth; F31.9 Bipolar disorder, unspecified; F20.9 Schizophrenia, unspecified; O99.334 Smoking (tobacco) complicating childbirth; F17.210 Nicotine dependence, cigarettes, uncomplicated; Z3A.38 38 weeks gestation of pregnancy
CPT/HCPCS: 36415; 80053; 84550; 85014; 85018; 85025; 86592; 86703; 86850; 86900; 86901; 88307; A9270; G0432; J0290; J2405; J2590; J2795; J3480; J7120

== ENCOUNTER 2020-07-09 14:58 | Emergency (ER) | payer BC, SELFPAY ==
[2020-07-09 16:16] VITALS: BP 145/89; PULSE 96; RESP 16; TEMP 37.3; O2SAT 99
--- NOTE | 2020-07-09 18:22 | PC.NURSE ---
Pt seen by security getting in a vehicle and leaving hospital property.
== END 2020-07-09 18:22 | disposition left against medical advice (07) ==
PROVIDERS: PCP Family Medicine
DX: M79.10 Myalgia, unspecified site (principal)
CPT/HCPCS: 99199

== ENCOUNTER 2020-08-26 11:54 | Emergency (ER) | payer BC, SELFPAY ==
--- NOTE | ~2020-08-26 | XR_ITS ---
EXAMINATION: XR chest 1V portable EXAM DATE: 08/26/2020 13:27 INDICATION: Weakness, fever and cough. TECHNIQUE: Portable AP frontal chest x-ray was obtained. Comparison is made to prior examination from 05/08/2020. FINDINGS: The lungs are clear. There are no pleural effusions. The cardiomediastinal silhouette is within normal limits. There is no pneumothorax suspected. The bones and soft tissues are unremarkab le. IMPRESSION: No acute cardiopulmonary findings. Reviewed, dictated and finalized at location B. LE BENDER
[2020-08-26 12:18] VITALS: PULSE 72; RESP 17; O2SAT 99
[2020-08-26 12:35] VITALS: PULSE 72; RESP 23
--- NOTE | 2020-08-26 12:44 | ED.GENADULT ---
HPI - General Adult General Chief complaint: Unspecified Stated complaint: i think im in a walking coma Time Seen by Provider: 08/26/20 12:20 Source: patient Mode of arrival: ambulatory Limitations: no limitations History of Present Illness HPI narrative: 40 years old white female presents with general body aches including joints and muscles for years, also intermittent spitting up sputum for years. Today came to the emergency room because she believes that she is in coma. patient unable to elaborate what that meant.. Then patient is asking me for a sandwich and a can of soda because she did not eat all day long. Patient denies any fever, chills, nausea, vomiting, diarrhea, coughing, sore throat, headache, respiratory symptoms or exposure to anybody with COVID-19. Patient brought to the emergency room by her mother who left after dropping her off. Patient denies any suicidal or homicidal ideation Related Data Home Medications Medication Instructions Recorded Confirmed buspirone mg 07/09/20 lithium carbonate mg 07/09/20 Allergies Allergy/AdvReac Type Severity Reaction Status Date / Time No Known Allergies Allergy Verified 07/09/20 16:20 Review of Systems Review of Systems: Narrative: CONSTITUTIONAL: Denies fever, chills, or sweats. EYES: Denies visual changes, redness, or discharge. ENT: Denies rhinorrhea, congestion, sore throat, or otalgia. CARDIOVASCULAR: Denies chest pain, palpitations, or edema. RESPIRATORY: Denies cough or dyspnea. GASTROINTESTINAL: Denies abdominal pain, nausea, vomiting, or diarrhea. GENITOURINARY: Denies dysuria or hematuria. SKIN: Denies rash or itching. MUSCULOSKELETAL: Denies back pain, joint pain, or myalgia. NEUROLOGIC: Denies headache, numbness, or weakness. PSYCHIATRIC: Anxious PMFSH Past Medical History Medical History (Updated 08/26/20 @ 14:12 by Francis Wheatley MD) Bipolar disorder No significant past medical history Schizophrenia Surgical History Surgical History History of thyroidectomy Family History Family History Mother Family history of thyroid disease Grandparent Family history of glaucoma Family history of coronary artery disease Family history of congestive heart failure Social History Social History Smoking packs per day: 0.5 Smoking cigarettes per day: 10.0 Years smoked: 16 Smoking pack-years: 8.00 Smoking status: Current every day smoker Tobacco type: cigarettes Second hand tobacco smoke exposure: Yes Alcohol intake: never Substance use: never Gender identity (if verbalized by the patient): Female Spiritual care concerns: No Exam Narrative: Exam Narrative: General appearance: Well-developed, well-nourished Skin: Normal color Head: Normocephalic, nontraumatic Eyes: Clear conjunctiva ENT: Oropharynx normal, ears normal, nose normal Neck: Supple, nontender Chest and respiratory: Airway patent, no respiratory distress, no accessory muscle use Heart: Regular rate/rhythm Abdomen: Soft, nontender, no organomegaly, quiet bowel sounds Vascular: Normal peripheral pulses, normal capillary refill. Musculoskeletal: Normal range of motion, nontender back Neurologic: Alert and oriented ?3, INSPECTOR [employer]RY NEGATIVE is normal as tested, no gross motor deficit Course Course Emergency Course: Stable Vital Signs Vital signs: Vital Signs Pulse Rate 72 08/26/20 12:18 Respiratory Rate 17 08/26/20 12:18 Pulse Oximetry 99 08/26/20 12:18 Temperature 36.8 C 08/26/20 12:50 Pulse Rate 78 08/26/20 13:09 Respirat
[2020-08-26 12:49] VITALS: PULSE 64; RESP 12
[2020-08-26 12:50] VITALS: BP 105/68; PULSE 79; RESP 16; TEMP 36.8; O2SAT 98
[2020-08-26 13:09] VITALS: PULSE 78; RESP 17; O2SAT 99
[2020-08-26 13:16] LABS: Basophils Absolute Auto 0.1 K/mm3 (0.0-0.1); Basophils Percent Auto 0.6 % (0.2-1.2); Eosinophils Absolute Auto 0.1 K/mm3 (0-0.3); Hematocrit 38.8 % (37.0-47.0); Hemoglobin 12.8 g/dL (12.0-15.0); Immature Granulocyte Absolute 0.04 K/mm3 (0.00-0.031); Immature Granulocyte Percent A 0.3 % (0-0.5); Lymphocytes Percent Auto 20.8 % (18.3-44.2); Mean Corpuscular Hemoglobin 30.8 pg (26-34); Mean Corpuscular Volume 93.5 fl (80-100); Mean Platelet Volume 9.2 fl (7.4-10.4); Monocytes Absolute Auto 0.7 K/mm3 (0.1-0.6); Monocytes Percent Auto 5.9 % (2.6-8.5); Neutrophils Absolute Auto 8.2 K/mm3 (1.3-6.7); Neutrophils Percent Auto 71.4 % (45.5-73.1); Platelet Count Result 406 k/mm3 (150-375); Red Blood Count 4.15 M/mm3 (4.2-5.4); White Blood Count 11.5 K/mm3 (4.5-10.0)
[2020-08-26 13:25] LABS: Alanine Aminotransferase 14 U/L (4-35); Albumin Level 3.5 g/dL (3.5-5.1); Alkaline Phosphatase 57 U/L (38-126); Anion Gap 5 mmol/L (8-16); Aspartate Amino Transferase 20 U/L (14-36); Bilirubin,Total 0.6 mg/dL (0.2-1.3); Blood Urea Nitrogen 12 mg/dL (7-17); Calcium 8.8 mg/dL (8.4-10.2); Carbon Dioxide 29 mmol/L (22-30); Chloride 103 mmol/L (98-107); Estimated Glomerular Filt Rate > 60; Glucose 86 mg/dL (65-105); Lipase 45 U/L (23-300); Potassium 4.1 mmol/L (3.4-5.0); Sodium 137 mmol/L (137-145)
[2020-08-26 13:31] VITALS: BP 102/63
[2020-08-26 13:37] LABS: Lithium < 0.2 mmol/L (0.6-1.2)
[2020-08-26 13:37] LABS: Add Urine Microscopic? YES; Appearance Urine Cloudy (Clear); Bacteria Urine Trace /hpf; Bilirubin Urine Negative (Negative); Blood Urine Negative (Negative); Color Urine Straw (Yellow); Glucose Urine UA Negative (Negative); Ketones Urine Negative (Negative); Leukocyte Esterase Ur Negative LEU/UL (Negative); Nitrate Urine Negative (Negative); Protein Urine Negative (Negative); RBC Urine 0-2 /hpf (0-2); Specific Grav Ur 1.009 (1.001-1.035); Squamous Epithelial Cell Urine Many /hpf (Few); Urobilinogen Urine Negative mg/dL (<2.0); WBC Urine 0-3 /hpf
--- NOTE | 2020-08-26 14:15 | PC.NURSE ---
patient upset that she is being released. wants to stay in her room and eat a sandwich. advised this is the ED and we have patients in the waitingn room. she can eat at home.
== END 2020-08-26 14:29 | disposition home or self-care (01) ==
PROVIDERS: Emergency Provider Emergency Medicine; PCP Family Medicine
DX: F29 Unspecified psychosis not due to a substance or known physiological condition (principal); F17.210 Nicotine dependence, cigarettes, uncomplicated; F31.9 Bipolar disorder, unspecified; F20.9 Schizophrenia, unspecified
CPT/HCPCS: 36415; 71045; 80053; 80178; 81001; 81025; 83690; 85025; 99283

== ENCOUNTER 2020-09-01 10:40 | Outpatient (CLI) | payer BC, SELFPAY ==
--- NOTE | ~2020-09-01 | XR_ITS ---
XR foot RT min 3V DATE: 09/01/2020 11:02 INDICATION: Right ankle and foot pain, bruising TECHNIQUE: 4 views COMPARISON: None FINDINGS: There is mild joint space narrowing and spurring at the first metatarsophalangeal joint con sistent with osteoarthritis. No fracture or dislocation, periosteal reaction or bone destruction. IMPRESSION: Osteoarthritis at first metatarsophalangeal joint Reviewed, dictated and finalized at location B. UCTION LINE WELDER
--- NOTE | ~2020-09-01 | XR_ITS ---
XR ankle RT min 3V DATE: 09/01/2020 11:01 INDICATION: Right ankle and foot pain. Medial bruising. No known injury. TECHNIQUE: 4 views COMPARISON: None FINDINGS: No fracture or dislocation, periosteal reaction or bone destruction. The ankle mortise is intact. IMPRESSION: Negative Reviewed, dictated and finalized at location B. MANAGER IMPRESSION: Negative
== END 2020-09-01 10:41 | disposition home or self-care (01) ==
PROVIDERS: PCP Family Medicine; Visit Provider Obstetrics & Gynecology
DX: M25.571 Pain in right ankle and joints of right foot (principal); M19.041 Primary osteoarthritis, right hand
CPT/HCPCS: 73610; 73630

== ENCOUNTER 2020-12-22 11:49 | Emergency (ER) | payer BC, SELFPAY ==
--- NOTE | ~2020-12-22 | CT_ITS ---
EXAMINATION: CT abdomen pelvis w con EXAM DATE: 12/22/2020 13:43 INDICATION: Lower abdominal pain, leukocytosis. TECHNIQUE: Spiral CT of the abdomen and pelvis was performed following intravenous injection of 100 m L Omnipaque 350. Axial, coronal and sagittal images of the abdomen and pelvis were reviewed. The do se-length product (DLP) for this examination was 760.34 mGy-cm. The exposure was tailored according to patient size (auto mA exposure control), and iterative reconstruction (ASIR) was used as additiona l dose reduction technique. There is no prior study for comparison. FINDINGS: The liver, spleen, adrenal glands and pancreas are unremarkable. Gallbladder is unremarkab le. No biliary obstruction. Portal and splenic veins are patent. Kidneys enhance symmetrically. T here is no hydronephrosis. There is IUD which appears to be centrally located within the endometriu m, expected position. The bladder is unremarkable. There is no retroperitoneal or pelvic lymphadeno [place]. The appendix is normal. The stomach and small bowel are unremarkable. There is expected amount of c olonic stool. Undistended portions of colon have mildly thick appearing wall, possible mild colitis N o free intraperitoneal gas. Trace pleural effusions. No basilar consolidation. The lung bases are unremarkable. There are no osteoblastic or osteolytic lesions identified. IMPRESSION: Possible mild colitis. Trace pleural effusions. Reviewed, dictated and finalized at location A.
[2020-12-22 12:03] VITALS: BP 117/78; PULSE 95; RESP 18; TEMP 37.1; O2SAT 98
[2020-12-22 12:12] LABS: Basophils Absolute Auto 0.1 K/mm3 (0.0-0.1); Basophils Percent Auto 0.5 % (0.2-1.2); Eosinophils Absolute Auto 0.1 K/mm3 (0-0.3); Eosinophils Percent Auto 0.6 % (0-4.4); Hematocrit 41.7 % (37.0-47.0); Hemoglobin 13.8 g/dL (12.0-15.0); Immature Granulocyte Absolute 0.06 K/mm3 (0.00-0.031); Immature Granulocyte Percent A 0.4 % (0-0.5); Lymphocytes Absolute Auto 1.83 K/mm3 (0.9-3.2); Lymphocytes Percent Auto 11.8 % (18.3-44.2); Mean Corpuscular HGB Conc 33.1 g/dl (32-36); Mean Corpuscular Hemoglobin 30.9 pg (26-34); Mean Corpuscular Volume 93.3 fl (80-100); Mean Platelet Volume 9.3 fl (7.4-10.4); Monocytes Absolute Auto 0.6 K/mm3 (0.1-0.6); Monocytes Percent Auto 3.7 % (2.6-8.5); Neutrophils Absolute Auto 12.9 K/mm3 (1.3-6.7); Platelet Count Result 404 k/mm3 (150-375); Red Blood Count 4.47 M/mm3 (4.2-5.4); Red Cell Distribution Width 12.8 % (11.5-14.5); White Blood Count 15.5 K/mm3 (4.5-10.0)
[2020-12-22 12:14] LABS: Add Urine Microscopic? NO; Appearance Urine Clear (Clear); Bilirubin Urine Negative (Negative); Blood Urine Negative (Negative); Color Urine Straw (Yellow); Glucose Urine UA Negative (Negative); Ketones Urine Negative (Negative); Leukocyte Esterase Ur Negative LEU/UL (Negative); Nitrate Urine Negative (Negative); Protein Urine Negative (Negative); Urobilinogen Urine Negative mg/dL (<2.0)
[2020-12-22 12:22] LABS: Alanine Aminotransferase 17 U/L (4-35); Albumin Level 4.4 g/dL (3.5-5.1); Alkaline Phosphatase 62 U/L (38-126); Anion Gap 7 mmol/L (8-16); Aspartate Amino Transferase 34 U/L (14-36); Bilirubin,Total 0.9 mg/dL (0.2-1.3); Blood Urea Nitrogen 8 mg/dL (7-17); Carbon Dioxide 24 mmol/L (22-30); Chloride 102 mmol/L (98-107); Estimated CRCL calculation 118 ml/min; Estimated Glomerular Filt Rate > 60; Glucose 113 mg/dL (65-105); Lipase 59 U/L (23-300); Potassium 3.9 mmol/L (3.4-5.0); Sodium 133 mmol/L (137-145)
[2020-12-22 12:22] LABS: Specific Grav Ur 1.002 (1.001-1.035)
--- NOTE | 2020-12-22 13:10 | ED.ABDPAIN ---
HPI - Abdominal Pain General Chief Complaint: Abdominal Pain Stated Complaint: abd pain Time Seen by Provider: 12/22/20 13:03 Source: patient Mode of arrival: ambulatory Limitations: no limitations History of Present Illness HPI narrative: This is a 40 year old female that presents to the ER for abdominal pain over the last 7 months. Reports worsening lately. Reports the pain is in her lower abdomen and is a constant dull ache. She has not taken anything for pain. Denies fever, nausea, vomiting, diarrhea, dysuria or hematuria. Related Data Home Medications Medication Instructions Recorded Confirmed buspirone mg 07/09/20 lithium carbonate mg 07/09/20 Allergies Allergy/AdvReac Type Severity Reaction Status Date / Time No Known Allergies Allergy Verified 07/09/20 16:20 Review of Systems Review of Systems: Narrative: CONSTITUTIONAL: Denies fever GASTROINTESTINAL: Reports abdominal pain. Denies nausea, vomiting, or diarrhea. GENITOURINARY: Denies dysuria or hematuria. All systems reviewed & are unremarkable except as noted in HPI and below PMFSH Past Medical History Medical History (Updated 12/22/20 @ 14:34 by Merna Menchaca PA-C) Bipolar disorder No significant past medical history Schizophrenia Surgical History Surgical History History of thyroidectomy Family History Family History Mother Family history of thyroid disease Grandparent Family history of glaucoma Family history of coronary artery disease Family history of congestive heart failure Social History Social History Smoking packs per day: 0.5 Smoking cigarettes per day: 10.0 Years smoked: 16 Smoking pack-years: 8.00 Smoking status: Current every day smoker Tobacco type: cigarettes Second hand tobacco smoke exposure: Yes Alcohol intake: never Substance use: never Gender identity (if verbalized by the patient): Female Spiritual care concerns: No Exam Narrative: Exam Narrative: GENERAL: Well-appearing, well-nourished, and in no acute distress. HEAD: Normocephalic, atraumatic. EYES: EOMI. CHEST: Clear to auscultation. No respiratory distress. No wheezes rales or rhonchi HEART: Regular rate and rhythm. No murmur heard. Normal peripheral pulses. ABDOMEN: Soft, nondistended, normal active bowel sounds. Mild tenderness to palpation throughout the lower abdomen, without guarding EXTREMITIES: Normal range of motion. No edema. SKIN: Warm, dry, no rash. NEURO: No focal deficits. Alert and oriented x3. PSYCH: Normal mood and affect Course Vital Signs Vital signs: Vital Signs Temperature 98.7 F 12/22/20 12:03 Pulse Rate 95 12/22/20 12:03 Respiratory Rate 18 12/22/20 12:03 Blood Pressure 117/78 12/22/20 12:03 Pulse Oximetry 98 12/22/20 12:03 Temperature 98.7 F 12/22/20 12:03 Pulse Rate 95 12/22/20 12:03 Respiratory Rate 18 12/22/20 12:03 Blood Pressure 117/78 12/22/20 12:03 Pulse Oximetry 98 12/22/20 12:03 MDM - Abdominal Pain MDM Narrative Medical decision making narrative: Patient presents the emergency department for acute on chronic lower abdominal pain. She is afebrile and nontoxic-appearing. CBC with leukocytosis to 15.5. Metabolic panel and lipase without concerning findings. UA without evidence of infection. Bedside test is negative. CT scan abdomen and pelvis shows possible mild colitis. Also shows trace pleural effusions. Oxygen saturation is normal on room air. Patient denies any chest pain or shortness of breath. She will be started on oral antibiotics and is stable and felt appropriate for further outpatient evaluation. She is to follow-up with primary care doctor and gastroenterology. She was given warnings to return to the ER Lab Data Attestation: I reviewed the patient's lab results. Result
[2020-12-22 14:48] VITALS: BP 130/72; PULSE 78; RESP 18; O2SAT 99
== END 2020-12-22 14:50 | disposition home or self-care (01) ==
PROVIDERS: Emergency Provider Family Medicine; PCP Family Medicine
DX: K52.9 Noninfective gastroenteritis and colitis, unspecified (principal); F17.219 Nicotine dependence, cigarettes, with unspecified nicotine-induced disorders; F31.9 Bipolar disorder, unspecified; F20.9 Schizophrenia, unspecified
CPT/HCPCS: 36415; 74177; 80053; 81003; 81025; 83690; 85025; 96374; 99284; J0131; Q9967

== ENCOUNTER 2021-03-17 15:20 | Emergency (ER) | payer BC, SELFPAY ==
[2021-03-17 15:28] VITALS: BP 151/91; PULSE 102; RESP 18; TEMP 36.4; O2SAT 97
--- NOTE | 2021-03-17 17:19 | PC.NURSE ---
Per Dr. Singh, pt may call for a ride home
--- NOTE | 2021-03-17 17:22 | ED.GENADULT ---
HPI - General Adult General Chief complaint: Psychiatric Symptoms Stated complaint: possible si Time Seen by Provider: 03/17/21 16:10 Source: patient Mode of arrival: EMS Limitations: no limitations History of Present Illness HPI narrative: 40-year-old with a history of bipolar disorder was brought in from home by ambulance . Patient states that she was making read and she had scissors in a hand and she was talking to the leads stating that someone was stabbing her with the scissors family who was at bedside thought that she was going to stab them they later called 911 and was brought to the ER. Upon arrival to the ER patient denies being homicidal or suicidal. Patient states that she was talking to the teeth and family misunderstood. She also complains of left thigh pain she denies any trauma. Onset (ago): hour(s) Associated symptoms: denies other symptoms Related Data Home Medications Medication Instructions Recorded Confirmed buspirone 15 mg 07/09/20 lithium carbonate mg 07/09/20 hydroxyzine HCl 03/17/21 trazodone 03/17/21 03/17/21 Allergies Allergy/AdvReac Type Severity Reaction Status Date / Time No Known Allergies Allergy Verified 03/17/21 15:38 Review of Systems Review of Systems: All systems reviewed & are unremarkable except as noted in HPI and below Constitutional: Constitutional: Reports no additional constitutional complaints Eyes: Eyes: Reports no additional eye complaints ENT: Reports system reviewed and no additional complaints, except as documented Cardiovascular: Cardiovascular: Reports no additional cardiovascular complaints Respiratory: Respiratory: Reports no additional respiratory complaints Gastrointestinal: Gastrointestinal: Reports no additional gastrointestinal complaints Musculoskeletal: Musculoskeletal: Reports as per HPI Neurologic: Reports system reviewed and no additional complaints, except as documented Psychiatric: Psychiatric: Reports no additional psychiatric complaints Endocrine: Endocrine: Reports no additional endocrine complaints [facility] Past Medical History Medical History (Updated 03/17/21 @ 17:27 by Lionel Galvin MD) Bipolar disorder No significant past medical history Schizophrenia Surgical History Surgical History History of thyroidectomy Family History Family History Mother Family history of thyroid disease Grandparent Family history of glaucoma Family history of coronary artery disease Family history of congestive heart failure Social History Social History Smoking packs per day: 0.5 Smoking cigarettes per day: 10.0 Years smoked: 16 Smoking pack-years: 8.00 Smoking status: Current every day smoker Tobacco type: cigarettes Second hand tobacco smoke exposure: Yes Alcohol intake: never Substance use: never Substance use type: does not use Gender identity (if verbalized by the patient): Female Spiritual care concerns: No Exam Narrative: Exam Narrative: GENERAL: Well-appearing, well-nourished, and in no acute distress. HEAD: Normocephalic, atraumatic. EYES: PERRLA and EOMI.. NECK: Supple. CHEST: Clear to auscultation. No respiratory distress. HEART: Regular rate and rhythm. No murmur heard. Normal peripheral pulses.. EXTREMITIES: Normal range of motion. No edema. SKIN: Warm, dry, no rash. NEURO: No focal deficits. Alert and oriented x3. PSYCH: Normal mood and affect. Course Course Emergency Course: Patient repeatedly mentioned that she is not suicidal or homicidal. She states that she was jokingy Vital Signs Vital signs: Vital Signs Temperature 36.4 C L 03/17/21 15:28 Pulse Rate 102 H 03/17/21 15:28 Respiratory Rate 18 03/17/21 15:28 Blood Pressure 151/91 H 03/17/21 15:28 Pulse Oximetry 97 03/17/21 15:28 Temperature 36
[2021-03-17 17:29] VITALS: BP 150/83; PULSE 93; RESP 18; O2SAT 98
== END 2021-03-17 17:33 | disposition home or self-care (01) ==
PROVIDERS: Emergency Provider Family Medicine; PCP Family Medicine
DX: M79.652 Pain in left thigh (principal); F31.9 Bipolar disorder, unspecified; F20.9 Schizophrenia, unspecified; E89.0 Postprocedural hypothyroidism; F17.210 Nicotine dependence, cigarettes, uncomplicated
CPT/HCPCS: 99199; 99281

== ENCOUNTER 2021-09-15 12:59 | Outpatient (CLI) | payer BC, SELFPAY ==
[2021-09-15 13:44] LABS: Lithium 0.7 mmol/L (0.6-1.2)
== END 2021-09-15 13:00 | disposition home or self-care (01) ==
LOC: ANHSURGERY 13:02
PROVIDERS: Anesthesiology; PCP Family Medicine; Visit Provider Obstetrics & Gynecology
DX: Z01.812 Encounter for preprocedural laboratory examination (principal); R10.2 Pelvic and perineal pain; Z51.81 Encounter for therapeutic drug level monitoring; Z79.899 Other long term (current) drug therapy
CPT/HCPCS: 36415; 80178; 86850; 86900; 86901

== ENCOUNTER 2021-09-18 01:24 | Day surgery (SDC) | payer BC, SELFPAY ==
[2021-09-15 09:50] VITALS: BMI 31.9
--- NOTE | 2021-09-15 10:05 | PC.NURSE ---
Report to the Outpatient Waiting Room, entrance under the green pavilion located off [facility], at time 8:30 on date 09/18/21. OR Time: 10:30. - You will be asked a series of questions to screen for COVID 19 for your protection. - A mask is required within the hospital. - No visitors are allowed at this time. Preoperative COVID Testing Requirements: COVID TEST 09/16 AT 7:30 No COVID Test needed if: (proof is required; if not received patient will have Rapid Test prior to entry) - Patient has received COVID Vaccine at least 14 days prior to procedure date or - Patient has positive COVID test result within last 90 days of surgery date. COVID Test needed if above criteria is not met If not COVID vaccinated a COVID test must be conducted within 72 hours of surgery and patient is asked to isolate self from time of testing until procedure. You will go to the [employer] [facility] for your COVID testing. The [employer] [facility] is located at the corner of [address] [facility]. You will only be called if COVID results are positive and your surgeon may reschedule your elective surgery date. Patients may have clear liquids (water, carbonated beverages, clear teas, apple juice) until 3 hours prior to surgery (7:30) with a maximum of 20 ounces. - No food from midnight until time of surgery Take the following medications with a SIP of water the morning of surgery: BUSPIRONE Medications to discontinue per physician: N/A Date to take last dose: N/A Please no make-up, nail slovenian, hairspray, perfume, deodorant, or body powder the day of surgery. No jewelry (including any body piercings) or valuables the day of surgery, leave them at home. Please take a shower or bath the night before, or the morning of, surgery with an antibacterial soap. Wear comfortable, loose fitting clothing. - Jewelry must be removed prior to entering the operating room. Rings and piercings that are not removed may be cut off. - The hospital will not accept responsibility for valuables. - Please leave all valuables, including medications, at home the day of surgery. If you are going home after surgery, a licensed route sales delivery drivers supervisor must drive you home. - NO public transportation without another adult. - We recommend that an adult stay with you for 24 hours following discharge. - We also recommend that you do not drive, make important decision, drink alcoholic beverages, or take any drugs that were not prescribed by your health care provider for at least 24 hours after your discharge time. Follow any additional instructions given to you from your surgeon. Telephone instructions given to VANNESSA KNIGHT and asked if any additional questions and then verbalized understanding. Patient advised to call surgeon office or pre surgery nurse liaison [phone] if any additional questions.
--- NOTE | 2021-09-16 11:56 | PM.IMHP ---
H&P: HPI History of Present Illness Date/Time: 09/16/21 11:56 This 41-year-old female admitted for diagnostic laparoscopy secondary to pelvic pain. She has had a history of an IUD placement ultrasound shows SB in the right place and she continues with pelvic pain there is a family history of endometriosis and she feels that she is at high risk for that. Risks and benefits of this procedure reviewed including but not exclusive of , aspiration pneumonia, bleeding, transfusion, perforation injury to bowel, bladder, ureters, or other internal organs with need for open laparotomy. She received the [employer] handout entitled laparoscopy. She had all questions answered as to proceed Chief Complaint: Pelvic pain Review of Systems Review of Systems: All systems reviewed & are unremarkable except as noted in HPI and below PMFSH Past Medical History Medical History Bipolar disorder No significant past medical history Schizophrenia Surgical History Surgical History History of thyroidectomy Family History Family History Mother Family history of thyroid disease Grandparent Family history of glaucoma Family history of coronary artery disease Family history of congestive heart failure Social History Social History Smoking packs per day: 0.5 Smoking cigarettes per day: 10.0 Years smoked: 4 Smoking pack-years: 2.00 Smoking status: Current every day smoker Tobacco type: cigarettes Second hand tobacco smoke exposure: Yes Alcohol intake: never Substance use: never Substance use type: does not use Gender identity (if verbalized by the patient): Female Spiritual care concerns: No Meds Home Medications and Allergies Home Medications Medication Instructions Recorded Confirmed Type buspirone 15 mg PO BID 07/09/20 09/15/21 History lithium carbonate 300 mg PO HS 07/09/20 09/15/21 History hydroxyzine HCl 25 mg PO BID 03/17/21 09/15/21 History trazodone 50 mg PO HS 03/17/21 09/15/21 History paliperidone 9 mg PO HS 09/15/21 09/15/21 History Allergies Allergy/AdvReac Type Severity Reaction Status Date / Time No Known Allergies Allergy Verified 09/15/21 09:48 Exam Const: General: no acute distress Eyes: General: appearance normal, both eyes and all related structures Neck: Neck: supple and no JVD Thyroid: thyroid normal Resp: Effort & Inspection: normal respiratory effort Auscultation: clear to auscultation bilaterally Cardio: Rate: regular rate Rhythm: regular rhythm GI: Inspection: non-distended GI Palp: Yes Soft to palpation, No Tenderness to palpation present (GI) and No Guarding due to palpation present (GI) Auscultation: normal bowel sounds : External Female Exam: normal external appearance Speculum Exam - Vagina: normal appearance of the vagina Speculum Exam - Cervix: normal appearance of the cervix Bimanual exam- vagina & uterus: enlarged and Uterine tenderness Bimanual Exam- Adnexa, other: tender Skin: General skin exam: no rashes or lesions noted Extrem: General: normal to inspection and no edema Psych: Mental Status: mental status grossly normal Affect: normal affect Assessment and Plan Additional Plan Impression: Pelvic pain Plan: Diagnostic laparoscopy
--- NOTE | 2021-09-17 15:05 | P.PNAN_ITS ---
Anes - Initial Pre Proc Eval Procedure: Operation Date: 09/18/21 12:30 Proposed Procedures p Diagnostic Laparoscopy - Davie Vega MD Date/Time: 09/17/21 15:05 Surgeon: Davie Vega MD Pre Op Diagnosis: pelvic Pain Patient Data Age: 41 Gender: F Height: 1.65 m Weight: 87.09 kg Allergies Allergy/AdvReac Type Severity Reaction Status Date / Time No Known Allergies Allergy Verified 09/18/21 10:50 Home Medications Medication Instructions Recorded Confirmed Type buspirone 15 mg PO BID 07/09/20 09/18/21 History lithium carbonate 300 mg PO HS 07/09/20 09/18/21 History hydroxyzine HCl 25 mg PO BID 03/17/21 09/18/21 History trazodone 50 mg PO HS 03/17/21 09/18/21 History paliperidone 9 mg PO HS 09/15/21 09/18/21 History hydrocodone-acetaminophen 1 tablet PO Q4H PRN #20 tablet 09/18/21 Rx Patient hx anesthesia problems: none Family hx anesthesia problems: none Results Review: All pre-operative results and documents have been reviewed as part of the pre-operative evaluation. [facility] Past Medical History Medical History (Updated 09/18/21 @ 07:20 by Davie Vega MD) Bipolar disorder No significant past medical history Schizophrenia Surgical History Surgical History History of thyroidectomy Family History Family History Mother Family history of thyroid disease Grandparent Family history of glaucoma Family history of coronary artery disease Family history of congestive heart failure Social History Social History Smoking packs per day: 0.5 Smoking cigarettes per day: 10.0 Years smoked: 4 Smoking pack-years: 2.00 Smoking status: Current every day smoker Tobacco type: cigarettes Second hand tobacco smoke exposure: Yes Alcohol intake: never Substance use: never Substance use type: does not use Living arrangements: with family Gender identity (if verbalized by the patient): Female Spiritual care concerns: No Anes - Eval Final PreProcedure Day of Procedure 09/17/21 15:05 Patient weight: obese Heart: regular rate and rhythm Lungs: clear to auscultation and normal air movement Airway: Mallampati scale class II Neurological: alert and oriented Last oral intake: >/= 8 hours ASA classification: III Emergent: no Anesthetic plan: proceed Anesthesia type and monitoring: general ETT and standard monitoring Results Review: All pre-operative results and documents have been reviewed as part of the pre-operative evaluation. Informed Consent: The patient's anesthetic plan and its attendant risks and benefits were discussed with the patient/family/POA. Questions were solicited and answers provided to the satisfaction of the patient/family/POA.
[2021-09-18] VITALS (10 sets, daily range): BP systolic 87–105; BP diastolic 52–71; PULSE 45–74; RESP 12–20; TEMP 36.5–36.7; O2SAT 97–100
--- NOTE | 2021-09-18 07:20 | WPDHPUPDATE1 ---
History and Physical Update Update Date/Time: 09/18/21 07:20 History and Physical has been reviewed, including an updated exam of the patient. There are NO changes in the patient's condition. Risks, benefits, and alternatives have been discussed and questions answered. Patient agrees to proceed with procedure.
[2021-09-18] MEDS: ACETAMINOPHEN 500 MG TABLET 1000 MG PO (11:16)
[2021-09-18] MEDS: LACTATED RINGERS 1,000 ML 30 ML IV CONT (11:20)
[2021-09-18] MEDS: KETOROLAC 15 MG/ML VIAL (*BKC) IV PUSH (11:21)
--- NOTE | 2021-09-18 11:31 | P.PNAN_ITS ---
Anes - Initial Pre Proc Eval Procedure: Operation Date: 09/18/21 12:30 Proposed Procedures p Diagnostic Laparoscopy - Davie Vega MD Date/Time: 09/18/21 11:31 Surgeon: Davie Vega MD Pre Op Diagnosis: pelvic Pain Patient Data Age: 41 Gender: F Height: 1.65 m Weight: 87.09 kg Allergies Allergy/AdvReac Type Severity Reaction Status Date / Time No Known Allergies Allergy Verified 09/18/21 10:50 Home Medications Medication Instructions Recorded Confirmed Type buspirone 15 mg PO BID 07/09/20 09/18/21 History lithium carbonate 300 mg PO HS 07/09/20 09/18/21 History hydroxyzine HCl 25 mg PO BID 03/17/21 09/18/21 History trazodone 50 mg PO HS 03/17/21 09/18/21 History paliperidone 9 mg PO HS 09/15/21 09/18/21 History hydrocodone-acetaminophen 1 tablet PO Q4H PRN #20 tablet 09/18/21 Rx Patient hx anesthesia problems: none Family hx anesthesia problems: none Results Review: All pre-operative results and documents have been reviewed as part of the pre-operative evaluation. [facility] Past Medical History Medical History (Updated 09/18/21 @ 07:20 by Davie Vega MD) Bipolar disorder No significant past medical history Schizophrenia Surgical History Surgical History History of thyroidectomy Family History Family History Mother Family history of thyroid disease Grandparent Family history of glaucoma Family history of coronary artery disease Family history of congestive heart failure Social History Social History Smoking packs per day: 0.5 Smoking cigarettes per day: 10.0 Years smoked: 4 Smoking pack-years: 2.00 Smoking status: Current every day smoker Tobacco type: cigarettes Second hand tobacco smoke exposure: Yes Alcohol intake: never Substance use: never Substance use type: does not use Living arrangements: with family Gender identity (if verbalized by the patient): Female Spiritual care concerns: No Anes - Eval Final PreProcedure Day of Procedure 09/18/21 11:31 Patient weight: obese Heart: regular rate and rhythm Lungs: clear to auscultation Airway: Mallampati scale class II Neurological: alert and oriented Last oral intake: >/= 8 hours ASA classification: III Emergent: no Anesthetic plan: proceed Anesthesia type and monitoring: general ETT and standard monitoring Results Review: All pre-operative results and documents have been reviewed as part of the pre-operative evaluation. Informed Consent: The patient's anesthetic plan and its attendant risks and benefits were discussed with the patient/family/POA. Questions were solicited and answers provided to the satisfaction of the patient/family/POA.
--- NOTE | 2021-09-18 12:44 | P.OP_ITS ---
Procedure Note - Detailed Date of Procedure 09/18/21 Pre-op Diagnosis pelvic Pain Post-op Diagnosis other (Endometriosis and right ovarian cyst) Procedure Performed Laparoscopy with cauterization of endometriosis and destruction of right ovarian cyst Surgeon Davie Vega MD Anesthesia general Indications /41-year-old female with pelvic pain and dyspareunia Findings Normal-appearing uterus with an IUD present. Normal-appearing tubes bilaterally. Small right ovarian cyst. Powder burn blistered endometriosis along the right and left uterosacral ligament. Normal-appearing appendix and gallbladder. Description of Procedure Patient was prepped draped in the normal sterile fashion placed in the dorsal lithotomy position. Under excellent general trach anesthesia weighted speculum placed posterior fornix vagina. Anterior lip of cervix grasped with single- tooth tenaculum. Lane's cannula inserted the cervix and attached to the single-tooth to be used later for uterine manipulation. Though weighted speculum was removed the bladder emptied of clear urine. Gloves were changed An infraumbilical incision made the Veress needle passed in the abdomen. Abdomen filled with CO2 gas to 15mm Hg. The 5mm trocar advanced in the abdomen under direct visualization assuring no injury. Patient placed in Trendelenburg and a suprapubic incision made. The 5mm trocar advanced under direct visualization assuring no injury. A 10cc of serosanguineous fluid was seen in the cul-de-sac and this was suction and irrigated. The above findings were seen. The areas of endometriosis were point cauterized at 45 w per 2nd with monopolar cautery. Photo documentation was undertaken and no other abnormality seen. The lower site then removed the upper site removed the incisions closed with 4-0 Monocryl and glue the instruments removed from the vagina. The patient went to recovery in satisfactory condition. All sponge, all needle, instrument counts were correct. There were no immediate complications noted Estimated Blood Loss 5 Drains No Packing No Pathology none sent Complications No immediate complications Condition stable Disposition PACU
[2021-09-18] MEDS: fentaNYL CITRATE INJ (*CRX) 100 MCG/2 ML VIAL 25 MCG IV PUSH ×3 (13:21→13:42)
== END 2021-09-18 14:50 | disposition home or self-care (01) ==
PROVIDERS: PCP Family Medicine; Visit Provider Obstetrics & Gynecology
PROC: (CPT 49320; principal; 2021-09-18 12:30)
DX: R10.2 Pelvic and perineal pain (principal); N83.201 Unspecified ovarian cyst, right side; N80.3 Endometriosis of pelvic peritoneum; N94.10 Unspecified dyspareunia; F31.9 Bipolar disorder, unspecified; F20.9 Schizophrenia, unspecified; F17.210 Nicotine dependence, cigarettes, uncomplicated; E66.9 Obesity, unspecified; Z68.31 Body mass index [BMI] 31.0-31.9, adult; Z97.5 Presence of (intrauterine) contraceptive device; E89.0 Postprocedural hypothyroidism
CPT/HCPCS: 58662; A9270; J0330; J1100; J1885; J2250; J2270; J2405; J2704; J3010; J7120

== ENCOUNTER 2023-11-13 10:57 | Emergency (ER) | payer MEDICARE, SELFPAY ==
--- NOTE | ~2023-11-13 | CT_ITS ---
EXAMINATION: CT cervical spine wo con DATE: 11/13/2023 12:37 INDICATION: Neck pain with radiculopathy TECHNIQUE: Computed tomography (CT) of the cervical spine was performed without intravenous contrast. Automated exposure control and iterative reconstruction technique were employed. The dose-length pro duct was 471.92 mGy-cm. COMPARISON: None FINDINGS: Alignment is normal. Vertebral body and disc heights are normal. Uncovertebral joints are normal. The re is moderate bilateral facet osteoarthritis at C7-T1 with minimal to mild facet osteoarthritis and more cephalad cervical spine. No central canal or neural foraminal stenosis. Status post left thyroid ectomy. A couple subcentimeter likely benign right thyroid nodules. Mild emphysema the apices. IMPRESSION: 1. Minimal to mild cervical facet osteoarthritis. Otherwise unremarkable cervical spine with no centr al canal or neural foraminal stenosis. 2. Mild emphysema. Reviewed, dictated and finalized at location A. IMPRESSION: 1. Minimal to mild cervical facet osteoarthritis. Otherwise unremarkable cervic al spine with no central canal or neural foraminal stenosis. 2. Mild emphysema.
--- NOTE | ~2023-11-13 | CT_ITS ---
EXAMINATION: CT thoracic spine wo con DATE: 11/13/2023 12:37 INDICATION: Thoracic back pain TECHNIQUE: Computed tomography (CT) of the thoracic spine was performed without intravenous contrast. Automated exposure control and iterative reconstruction technique were employed. The dose-length pro duct was 908.69 mGy-cm. COMPARISON: None FINDINGS: Mildly increased thoracic kyphosis with chronic appearing mild anterior wedging with 20% an terior vertebral body height loss at T7. There are Schmorl's nodes along the superior and inferior en dplates of T7 with along the inferior endplates of T6 and T10 and T11. There is moderate disc height loss at T6-T7, T7-T8, T8-T9 and T10-T11 with mild disc height loss at the remaining levels from T3-T4 through T11-T12. Minimal to mild osteoarthritis at several of the thoracic facet joints. Mild neural foraminal stenosis bilaterally at T9-T10 and T10-T11. Small bilateral pleural effusions with mild de pendent atelectasis in bilateral lower lobes. Mild emphysema the apices. Visualized posterior mediast inum including the descending thoracic aorta is unremarkable. IMPRESSION: 1. Moderate thoracic spondylosis with chronic mild T7 compression fracture. Reviewed, dictated and finalized at location A.
[2023-11-13 11:07] VITALS: BP 128/88; PULSE 78; RESP 18; TEMP 36.6; O2SAT 99
--- NOTE | 2023-11-13 11:29 | PC.NURSE ---
Pt states PMD scheduled MRI for her symptoms for 12/09/23
--- NOTE | 2023-11-13 11:49 | ED.NECK ---
HPI - Neck Pain/Injury General Chief Complaint: Neck Pain/Injury Stated Complaint: neck pain Time Seen by Provider: 11/13/23 11:35 Source: patient Mode of arrival: ambulatory Limitations: no limitations History of Present Illness HPI Narrative: Theresa is a 43-year-old female patient presenting to the here today with complaints neck pain and mid thoracic back pain. She reports that this is a chronic condition for but she is having increase and numbness and tingling in her arms. States she has history of cervical radiculopathy. Her primary care provider has ordered her a MRI of her neck however they cannot get this done until November. Related Data Home Medications Medication Instructions Recorded Confirmed buspirone 10 mg tablet 15 mg PO BID 07/09/20 09/18/21 lithium carbonate 300 mg capsule 300 mg PO HS 07/09/20 09/18/21 hydroxyzine HCl 25 mg tablet 25 mg PO BID 03/17/21 09/18/21 trazodone 50 mg tablet 50 mg PO HS 03/17/21 09/18/21 paliperidone 9 mg tablet,extended 9 mg PO HS 09/15/21 09/18/21 release 24 hr Allergies Allergy/AdvReac Type Severity Reaction Status Date / Time No Known Allergies Allergy Verified 11/13/23 11:14 Review of Systems Review of Systems: Pertinent positives per HPI. Patient denies any fever, chills, rash, headache, visual changes, dizziness, cough, runny nose, sore throat, shortness of breath, chest pain, palpitations, nausea, vomiting, diarrhea, constipation, abdominal pain, or any urinary issues. [facility] Past Medical History Medical History Bipolar disorder No significant past medical history Schizophrenia Surgical History Surgical History History of thyroidectomy Family History Family History Mother Family history of thyroid disease Grandparent Family history of glaucoma Family history of coronary artery disease Family history of congestive heart failure Social History Social History Smoking packs per day: 0.5 Smoking cigarettes per day: 10.0 Years smoked: 4 Smoking pack-years: 2.00 Smoking status: Current every day smoker Tobacco type: cigarettes Second hand tobacco smoke exposure: Yes Alcohol intake: never Substance use: never Substance use type: does not use Living arrangements: with family Gender identity (if verbalized by the patient): Female Spiritual care concerns: No Comments At the time of my signature, I reviewed and agree with the nursing past medical, surgical, social, and family history. There is no relevant family history pertinent to the patient complaint. Exam Narrative: General: Well-developed, well nourished, in no apparent distress Head: Normocephalic, atraumatic. Cardio: Regular rate and rhythm, s1 and s2 normal, no murmur appreciated. Resp: Clear to auscultation bilaterally, no rhonchi, rales, wheezing or rubs. Musculoskeletal: No deformity, tender to palpation over the cervical spine and midthoracic spine, pain with turning head side to side against resistance, pain with hyperextend or hyperflex of the cervical spine, grossly normal range of motion, muscle strength strong and equal, hand grasp strong and equal, peripheral pulse strong, no edema, no cyanosis, normal gait and station Course Course Emergency Course: Portions of this record may have been created with voice recognition software. Vital Signs Vital signs: Vital Signs Temperature 36.6 C 11/13/23 11:07 Pulse Rate 78 11/13/23 11:07 Respiratory Rate 18 11/13/23 11:07 Blood Pressure 128/88 11/13/23 11:07 Pulse Oximetry 99 11/13/23 11:07 Oxygen Delivery Room Air 11/13/23 11:07 Temperature 36.6 C 11/13/23 11:07 Pulse Rate 78 11/13/23 11:07 Respiratory Rate 18 11/13/23 11:07 Blood P
== END 2023-11-13 14:49 | disposition home or self-care (01) ==
PROVIDERS: Emergency Provider Nurse Practitioner Family; PCP Family Medicine
DX: M47.22 Other spondylosis with radiculopathy, cervical region (principal); M47.814 Spondylosis without myelopathy or radiculopathy, thoracic region; F17.210 Nicotine dependence, cigarettes, uncomplicated
CPT/HCPCS: 72125; 72128; 99284

== ENCOUNTER 2023-12-22 10:17 | Emergency (ER) | payer MEDICARE, SELFPAY ==
--- NOTE | ~2023-12-22 | XR_ITS ---
AP and lateral views of the left femur Clinical History: Pain Findings: No acute fracture or dislocation is seen. Osseous alignment is anatomic. Visualized joint s paces are grossly preserved. Soft tissues are unremarkable. Impression: Unremarkable left femoral radiographs. Reviewed, dictated and finalized at location M. Impression: Unremarkable left femoral radiographs.
[2023-12-22 10:29] VITALS: BP 137/87; PULSE 88; RESP 18; TEMP 36.6; O2SAT 98
--- NOTE | 2023-12-22 11:39 | ED.GENADULT ---
HPI - General Adult General Chief complaint: Extremity Injury, Lower Stated complaint: severe leg pain X2 years Time Seen by Provider: 12/22/23 11:29 Source: patient Mode of arrival: ambulatory Limitations: no limitations History of Present Illness HPI narrative: This is a 43-year-old female who presents to the ED with chief complaint of bilateral leg pain x2 years. Patient reports today the left thigh started to hurt significantly more walking. States she has had constant leg pain and pain all over for 2 years. She is requesting a femur x-ray because it has never been imaged before. Reports that she has no radiculopathy and neuropathy that she follows with her PCP and pain management for this. States he has not taken Tylenol because she overdosed in the past. She does not like to take ibuprofen on this prescribed by her doctor. Denies fevers, chills, loss of bowel or bladder function, numbness, weakness. Denies any injury or trauma. Related Data Home Medications Medication Instructions Recorded Confirmed buspirone 10 mg tablet 15 mg PO BID 07/09/20 09/18/21 lithium carbonate 300 mg capsule 300 mg PO HS 07/09/20 09/18/21 hydroxyzine HCl 25 mg tablet 25 mg PO BID 03/17/21 09/18/21 trazodone 50 mg tablet 50 mg PO HS 03/17/21 09/18/21 paliperidone 9 mg tablet,extended 9 mg PO HS 09/15/21 09/18/21 release 24 hr Allergies Allergy/AdvReac Type Severity Reaction Status Date / Time No Known Allergies Allergy Verified 12/22/23 10:18 Review of Systems Review of Systems: All systems as dictated in [facility] Past Medical History Medical History (Updated 12/22/23 @ 11:52 by Taras Morin PA-C) Bipolar disorder No significant past medical history Schizophrenia Surgical History Surgical History History of thyroidectomy Family History Family History Mother Family history of thyroid disease Grandparent Family history of glaucoma Family history of coronary artery disease Family history of congestive heart failure Social History Social History Smoking packs per day: 0.5 Smoking cigarettes per day: 10.0 Years smoked: 4 Smoking pack-years: 2.00 Smoking status: Current every day smoker Tobacco type: cigarettes Second hand tobacco smoke exposure: Yes Alcohol intake: never Substance use: never Substance use type: does not use Living arrangements: with family Gender identity (if verbalized by the patient): Female Spiritual care concerns: No Exam Narrative: GENERAL: Well-appearing, well-nourished, and in no acute distress. HEAD: Normocephalic, atraumatic. EYES: PERRLA and EOMI. ENT: Nares clear, no rhinorrhea or epistaxis. Mucous membranes moist. Oropharynx without tonsillar hypertrophy exudate or other lesions. NECK: Supple. No adenopathy or masses. CHEST: No respiratory distress. Clear to auscultation. No wheezes rales or rhonchi HEART: Regular rate and rhythm. No murmur heard. Normal peripheral pulses. ABDOMEN: Soft, nontender, nondistended, normal active bowel sounds. MSK: Normal range of motion. No edema. SKIN: Warm, dry, no rash. NEURO: Alert and oriented x3. No focal deficits. PSYCH: Normal mood and affect. Course Vital Signs Vital signs: Vital Signs Temperature 97.9 F 12/22/23 10:29 Pulse Rate 88 12/22/23 10:29 Respiratory Rate 18 12/22/23 10:29 Blood Pressure 137/87 12/22/23 10:29 Pulse Oximetry 98 12/22/23 10:29 Oxygen Delivery Room Air 12/22/23 10:29 Temperature 97.9 F 12/22/23 10:29 Pulse Rate 88 12/22/23 10:29 Respiratory Rate 18 12/22/23 10:29 Blood Pressure 137/87 12/22/23 10:29 Pulse Oximetry 98 12/22/23 10:29 Oxygen Delivery Room Air 12/22/23 10:29 Medical Decision Making MDM Narrative Medical decision making n
== END 2023-12-22 12:51 | disposition home or self-care (01) ==
PROVIDERS: Emergency Provider Physician Assistant; PCP Family Medicine
DX: M79.652 Pain in left thigh (principal); G89.29 Other chronic pain; F31.9 Bipolar disorder, unspecified; F20.9 Schizophrenia, unspecified; E89.0 Postprocedural hypothyroidism; F17.210 Nicotine dependence, cigarettes, uncomplicated
CPT/HCPCS: 73552; 99283

== ENCOUNTER 2025-05-18 12:26 | Emergency (ER) | payer MEDICARE, SELFPAY ==
--- OUTSIDE RECORDS SUMMARY | 2025-01-18 05:00 | XMS_ITS ---
Author Organization [facility]ly [facility], later [facility] Address [address] [place] [address] Care Team Providers Care [employer] Name Role Phone Tammi Gómez Primary Care Provider [phone] Kalen Vincent [phone] REASON FOR VISIT Uzedy Encounters Encounter Location Date Provider Diagnosis [facility] [address] [place] [address] 01/18/2025 Kalen Vincent Plan Of Treatment No Information Progress Notes * Theresa KELLY SDOB: [birth year] (45 yo F)Acc No.[id number]:01/18/2025 UNLOCKED PROGRESS NOTE Progress Note Patient: Theresa BRO Provider: Armida Vincent APN :1980 A ge:44 Y S ex:Female Date:01/18/2025 Address:[address] [place], [place] [id number] Pcp:Tammi Gómez Subjective: * Chief Complaints: * 1 . Uzedy. * Medical History: Objective: * Vitals: Assessment: Plan: * Treatment: * * Electronic signature of Kalen Vincent on 05/18/2025 at 03:46 PM CDT Sign off status: Pending * Provider: Armida Vincent APN Date: 0 01/18/2025 Generated for Bulmaroi natan/Benny/eTransmitting on: 0 05/18/2025 03:46 PM CDT
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
[2025-05-18 12:28] VITALS: BP 121/81; PULSE 95; RESP 18; TEMP 36.8; O2SAT 95
--- OUTSIDE RECORDS SUMMARY | 2025-05-18 12:28 | XMS_ITS | Encounter Summary ---
Author Organization [facility] Facility Care Team Providers Care Loan Originator Name Role Phone Karen Coulter MD Primary Care Provider [phone] Ayana Sheikh Primary Care Provider [phone] Sawyer Ohara MD Primary Care Provider [phone] Encounter Details Date Type Department Care Team (Latest Contact Info) Description 10/04/2018 Orders Only [facility] ProviderKylah MD [address] [place] [id number] Social History Tobacco Use Types Packs/Day Years Used Date Smoking Tobacco: Never Assessed Comments Unknown Sex and Gender Information Value Date Recorded Sex Assigned at Not on file Legal Sex Female 2:29 AM [employer] Gender Identity Not on file Sexual Orientation Not on file documented as of this encounter Plan of Treatment Not on file documented as of this encounter Procedures Procedure Name Priority Date/Time Associated Diagnosis Comments SCAN - LABS 10/09/2018 12:00 AM [employer] documented in this encounter Results * SCAN - LABS (10/09/2018 12:00 AM [employer]) Narrative 10/09/2018 12:00 AM [employer] Ordered by an unspecified provider. Historical Provider Final Res ult documented in this encounter Visit Diagnoses Not on filedocumented in this encounter Additional Health Concerns Infection Onset Date Last Indicated Resolved Time COVID: Suspected 07/16/2024 07/16/2024 07/16/2024 9:56 AM [employer] documented as of this encounter Care Teams Loan Originator Relationship Specialty [place] [address] [place] [address] PCP - General 05/10/13 12/26/18 Ayana Sheikh PA [address] [place] [address] PCP - General Internal Medicine 12/27/18 03/13/19 Sawyer Ohara MD [address] [place] [address] PCP - General 03/14/19 documented as of this encounter
--- OUTSIDE RECORDS SUMMARY | 2025-05-18 12:28 | XMS_ITS | Clinical Summary ---
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 11/09/2020 Active busPIRone 10 MG tablet Take 1 tablet (10 mg total) by mouth 2 (two) times daily. 11/08/2020 Active lidocaine 4 % patch Place 1 patch onto the skin daily. Remove & Discard patch within 12 hours or as directed by 6 patch 1 10/10/2023 Active baclofen (LIORESAL) 10 MG tablet Take 1 tablet (10 mg total) by mouth 3 (three) times daily as needed (neck pain). 30 tablet 10/10/2023 Active busPIRone (BUSPAR) 15 MG tablet Take 1 tablet (15 mg total) by mouth 2 (two) times daily. Active OLANZapine (ZYPREXA) injection Inject into the muscle once. Active risperiDONE ER (UZEDY) 100 MG/0.28ML Suspension Prefilled Syringe Active hydrOXYzine (ATARAX) 50 MG tablet Take 1 tablet (50 mg total) by mouth 3 (three) times daily as needed for Itching. Active Encounters Date Type Department Care Team Description 05/16/2025 4:06 PM CDT - 05/16/2025 7:05 PM CDT Emergency [facility] Emergency Room [address] [place] [id number] Gisell Gordon MD Foot Injury Discharge Disposition: Home or Self Care (Routine Discharge) 05/16/2025 Travel from Last 3 Months Social History Tobacco Use Types Packs/Day Years [...] on file Sexual Orientation Not on file Last Filed Vital Signs Vital Sign Reading [...] Mass Index 35.11 05/16/2025 4:08 PM CDT Plan of Treatment Health Maintenance Due Date Last Done Comments Annual Physical 1984 Hepatitis B Vaccines (1 of 3 - 19+ 3-dose series) 2000 Pneumococcal Vaccine: Pediatrics (0 to 5 Years) and At-Risk Patients (6 to 49 Years) (1 of 2 - PCV) 2000 HPV Vaccines (1 - 3-dose SCD M series) 2008 Cervical Cancer Screening Pa p with HPV Testing (Age 30 to 64) Every 5 Years 2011 Mammogram Screening 02/07/2025 02/07/2023 COVID-19 Vaccine (2023-2 5 season) 2025 Cervical Cancer Screening Pa p Smear (Age 30 to 64) Every 3 Years 04/24/2028 04/24/2025 Cervical Cancer Screening wi th HPV 04/24/2028 DTaP, Tdap and Td Vaccines ( 3 - Td or Tdap) 02/28/2030 02/29/2020, 04/07/2012 Hepatitis C Completed 04/22/2015 Meningococcal B Vaccine Aged Out No l onger eligible based on patient's age to complete this topic Meningococcal Vaccine Aged Out No joanna padmini eligible based on patient's age to complete this topic RSV Immunizations Under 20 Months Aged Out No longer eligible b ased on patient's age to complete this topic Procedures Procedure Name Priority Date/Time Associated Diagnosis Comments XR PELVIS 1 OR 2 VIEWS STAT 05/16/2025 5:48 PM CDT XR FEMUR RT 2V STAT 05/16/2025 5:48 PM CDT XR TIBIA+FIBULA RT 2V STAT 05/16/2025 5:48 PM CDT XR FOOT RT 3V STAT 05/16/2025 5:48 PM CDT XR SHOULDER LT 3V STAT 05/16/2025 5:4 8 PM CDT XR THOR SPINE 3V STAT 05/16/2025 5:48 PM CDT HEPATITIS C ANTIBODY Routine 04/22/2015 9:52 AM CDT from Last 3 Months or Most Recently Relevant to Health Maintenance Results * XR TIBIA+FIBULA RT 2V (05/16/2025 5:48 [...] 6:01 PM Narrative 05/16/2025 6:10 PM CDT [facility] [address] [place] [address] Examination: Pelvis AP view, right femur 2 views, right tibia/fibula 2 views, right foot 3 views [id number], [id number] Exam Date/Time: 05/16/2025 5:20 PM Reason For [...] Procedure Note Surinder Kemp MD - 05/16/2025 [facility] [address] [place] [address] Examination: Pelvis AP view, right femur 2 views, right tibia/fibula 2views, right foot 3 views [id number], [id number], [id number] Exam Date/Time: 05/16/2025 5:20 PM Reason For [...] GENERAL IMAGING Final Resu lt * XR PELVIS 1 OR 2 VIEWS [...] 6:01 PM Narrative 05/16/2025 6:10 PM CDT [facility] [address] [place] [address] Examination: Pelvis AP view, right femur 2 views, right tibia/fibula 2 views, right foot 3 views [id number], [id number], [id number] Exam Date/Time: 05/16/2025 5:20 PM Reason For [...] Procedure Note Surinder Kemp MD - 05/16/2025 [facility] [address] [facility] [place] [address] Examination: Pelvis AP view, right femur 2 views, right tibia/fibula 2views, right foot 3 views [id number], [id number], [id number] Exam Date/Time: 05/16/2025 5:20 PM Reason For [...] 6:01 PM Narrative 05/16/2025 6:10 PM CDT [facility] [address] [facility] [place] [address] Examination: Pelvis AP view, right femur 2 views, right tibia/fibula 2 views, right foot 3 views [id number], [id number], [id number] Exam Date/Time: 05/16/2025 5:20 PM Reason For [...] Procedure Note Surinder Kemp MD - 05/16/2025 [facility] [address] [facility] [place] [address] Examination: Pelvis AP view, right femur 2 views, right tibia/fibula 2views, right foot 3 views [id number], [id number], [id number] Exam Date/Time: 05/16/2025 5:20 PM Reason For [...] 6:01 PM Narrative 05/16/2025 6:10 PM CDT [facility] [address] [facility] [place] [address] Examination: Pelvis AP view, right femur 2 views, right tibia/fibula 2 views, right foot 3 views [id number], [id number], [id number] Exam Date/Time: 05/16/2025 5:20 PM Reason For [...] Procedure Note Surinder Kemp MD - 05/16/2025 [facility] [address] [place] [address] Examination: Pelvis AP view, right femur 2 views, right tibia/fibula 2views, right foot 3 views [id number], [id number], [id number] Exam Date/Time: 05/16/2025 5:20 PM Reason For [...] 5:59 PM Narrative 05/16/2025 6:01 PM CDT [facility] [address] [place] [address] Examination: 3 views left shoulder Exam date/time: [...] Procedure Note Surinder Kemp MD - 05/16/2025 [facility] [address] [place] [address] Examination: 3 views left shoulder Exam date/time: [...] 6:11 PM Narrative 05/16/2025 6:15 PM CDT [address] [place] [address] Examination: Thoracic Spine 3 views Exam date/time: [...] Procedure Note Surinder Kemp MD - 05/16/[address] [place] [address] Examination: Thoracic Spine 3 views Exam date/time: [...] MD GENERAL IMAGING Final Resu lt * HEPATITIS C ANTIBODY (04/22/2015 9:52 AM CDT) HEPATITIS C AB NON-REACT CHANEL NON-REACT CHANEL [facility] TO EPIC CONVERSION SIGNAL TO CUTOFF 0.04 <1.00 [facility] TO EPIC CONVERSION Comment: Result Comment: Test Performed at: [email or web address] [id number] [id number] MERY REYNAGA DO,MPH 04/22/2015 9:52 AM CDT 04/22/2015 9:52 AM CDT Narrative [facility] TO EPIC CONVERSION - 04/22/2015 9:54 AM CDT Result Communication: No patient communication needed at this time Ailyn Bridges NP LABORATORY Final Result [facility] TO EPIC CONVERSION from Last 3 Months or Most Recently Relevant to Health Maintenance [place] [address] [place] [address] [employer] Care Teams Cotton Machine Operator Relationship Specialty Start Date End Date Sawyer Ohara MD PCP - General FAMILY PRACTICE 08/05/20
--- OUTSIDE RECORDS SUMMARY | 2025-05-18 12:28 | XMS_ITS | Encounter Summary ---
Author Organization [facility] Healthcare Address [address] [place] [id number] Care Team Providers Care Traffic Sign Erection Supervisor Name Role Phone Sawyer Ohara MD Primary Care Provider Encounter Details Date Type Department Care Team (Latest Contact Info) Description 05/06/2025 Results Follow-Up [facility] Obstetrical Gynecology [address] [phone] Nicolette Howard MD [address] [address] Pap and High Risk HPV and Genotyping (Cytology Component) Social History Tobacco Use Types Packs/Day Years Used Date Smoking Tobacco: Every Day Cigarettes Smokeless Tobacco: Never Comments:refused counseling Alcohol Use Standard Drinks/Week Comments Never 0 (1 standard drink = 0.6 oz pur e alcohol) AUDIT-C Answer Date Recorded Q1: How often do you have a drink containing alcohol? Never 07/16/2024 Q2: How many drinks containi ng alcohol do you have on a typical day when you are drinking? Patient does not drink Q3: How often do you have si x or more drinks on one occasion? 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
--- OUTSIDE RECORDS SUMMARY | 2025-05-18 12:28 | XMS_ITS | Clinical Summary ---
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 and other psychosis. For now I will give a broad diagnosis of psychosis NOS. She came here psychotic and with manic features either due to poor compliance or by having a regimen with a subtherapeutic dose (for antipsychotic effect) of aripiprazole (10 mg Q24H). Today she is with more normal speech and flow of thought, but with some guardedness still. She slept better last night. Plan 1. Psychosis with manic features - Risperidone 2mg BID PO, due to history of good response upon onset of illness - Invega Sustenna 234 mg IM 10/10/18 and 156 on 10/13/18 - Divalproex ER 1 g QHS PO, to address manic features - Supportive psychotherapy. - Encouraged to attend group therapies available in the unit: music, occupational, etc. - Here on 96H hold, consider 21D involuntary petition. - Collateral - PRNs: haloperidol 5 mg and lorazepam 2 mg IM or PO for severe or mild agitation respectively - Precautions: suicide, elopement, assault. 2. Non-psychiatric medical issues - Appreciate Int Med recs 3. Diet - Regular 4. DVT prophylaxis - Ambulation throughout admission 5. Disposition - Appreciate SW's intervention Rajan Medeiros MD Assessment & Plan (10/10/2018 2:35 PM TURRET PRESS OPERATOR): Unspecified shizophrenia and other psychotic disorders Ms. KELLY has a ~9 year history of psychiatric illness put of which the last 7 years have seen several episodes of florid psychosis with delusions of persecution and reference, hallucinations, behavioral disorganization,Thought disorganization, functional decline, etc. She additionally has episodes of irritability, romantic indiscretions, increased spending, decreased need for sleep and pressured speech; but not all present at the same time. In any case they do not semm to be present for more than half of the illness. Diagnostic possibilities include Schizophrenia (if mood component does not reach jorge threshold, and it is not present for >50% of illness), and Schizoaffective disorder ( if amnia is present for more than half of the sick periods). More distant possibilities include Bipolar disorder and other psychosis. For now I will give a broad diagnosis of psychosis NOS. She is here psychotic and with manic features either due to poor compliance or by having a regimen with a subtherapeutic dose (for antipsychotic effect) of aripiprazole (10 mg Q24H). Today she is still with pressured speech fairly psychotic and demanding. She slept only 3 hours last night. Plan 1. Psychosis with manic features - Risperidone 2mg BID PO, due to history of good response upon onset of illness - Invega Sustenna 234 mg IM 10/10/18 and 156 on 10/13/18 - Divalproex ER increase from 0.5 to 1 g QHS PO, to address manic features - Supportive psychotherapy. - Encouraged to attend group therapies available in the unit: music, occupational, etc. - Here on 96H hold, consider 21D involuntary petition. - Collateral - PRNs: haloperidol 5 mg and lorazepam 2 mg IM or PO for severe or mild agitation respectively - Precautions: suicide, elopement, assault. 2. Non-psychiatric medical issues - Appreciate Int Med recs 3. Diet - Regular 4. DVT prophylaxis - Ambulation throughout admission 5. Disposition - Appreciate SW's intervention Rajan Medeiros MD Assessment & Plan (10/08/2018 6:32 PM TURRET PRESS OPERATOR): Patient is a 38YO , domiciled, unemployed female with psychiatric history of schizophrenia vs unspecified psychosis vs BPAD with psychosis presenting today with several days/weeks of increasingly bizarre behavior including delusions of persecution and reference, auditory hallucinations, decreased sleep, increased spending behavior, increased use of substances concerning for manic behavior with psychosis vs chronic psychotic disorder. She has been doing dangerous behaviors such as walking outside in the cold, drinking too many liquids for her fluid restriction, and prior to presenting to the ED she attempted to jump from a vehicle and climb a fence covered in ice. On exam she showed some disorganized thought and rapid speech, though not pressured and with few other signs of manic behavior. Her UDS is negative for all substances and alcohol is negative. At this time Ddx includes schizophrenia vs schizoaffective DO, BP type vs BPAD disorder with psychosis vs less likely having a medical condition causing symptoms vs even less likely a delirium process (patient has normal sensorium) or substance induced behavior (intoxication or withdrawal). Her behavior at this time is erratic and at times dangerous and she thus meets criteria for inpatient psychiatric admission for safety and medication adjustment. Risk assessment - the patient is a chronically moderate and acutely moderate- high risk of harm. Risk factors: poor insight, active psychosis, loss of rational thinking, impulsive and dangerous behavior, unemployed. Protective factors include: outpatient psychiatric care, no SI/HI, reported medication compliance, no access to firearms, , domiciled, kids as motivation, has future planning. Plan: 1. Please admit the patient as INVOLUNTARY to [facility] under Dr. Hart with suicide, elopement, and assault precautions. Given her medical history, the patient's appropriateness for [facility] was discussed with the [facility] admitting nurse and she was found appropriate. Paperwork complete, faxed to pt placement, and in chart. 2. Please increase abilify to 15mg QD for better control of psychosis since patient will take this medication. Plan to increase while admitted to a more reasonable dose for psychosis and consider DICKENS for psychosis in the future. 3. Please continue patient on sodium chloride supplementation, she may continue ativan but please decrease dose to .5 TID PRN and consider starting a taper off medication. 4. For agitation not amenable to redirection may give: - haldol 2-5mg PO Q6hrs PRN for mild/moderate OR - haldol 2-5mg IM + ativan 2mg IM Q6hrs PRN for severe agitation 5. If patient not given benzodiazepines please put onto CIWA for withdrawal prevention. 6. Please ensure patient is on a fluid restriction of 1000-1500ml/day and draw regular BMPs. Case discussed with ED team and international manager inclusion intern. Please call with other questions/concerns. Thank you for the consult. Resolved Problems Problem Noted Date Diagnosed Date Resolved Date Lower respiratory infection 07/31/2024 08/30/2024 Assessment & Plan (07/31/2024 11:33 AM TURRET PRESS OPERATOR): - Obtain CXR per pt request - Pt request Levaquin as this has helped in the past. Initiate Levaquin 500 mg daily x 7 days. Discussed that can prescribe at this time but need to ensure we do not overuse this medication and cause resistance. - Report back to office with continued or worsening symptoms despite treatment - Recommend increased rest and fluid intake - May take OTC Tylenol 1,000 mg q6h PRN for pain Vaginal candidiasis 07/31/2024 08/30/19 Assessment & Plan (07/31/2024 11:35 AM TURRET PRESS OPERATOR): - Reports recent vaginal yeast infection due to use of antibiotics - Refill sent of Diflucan 150 mg x 2 to start with onset of symptoms if they occur Whole body pain 10/06/2022 02/22/2023 Neck pain 10/06/2022 12/30/2022 Class 2 obesity due to exces s calories without serious comorbidity with body mass index (BMI) of 38.0 to 38.9 in adult 10/06/2022 Epigastric abdominal pain 12/16/2021 Hip pain, acute, left 05/29/20192022 Pain of left lower extremity 05/29/2019 12/30/2022 Acute pain of left knee 05/29/2019 05/11/2022 BMI 26.0-26.9,adult 01/01/2019 03/05/20 Assessment & Plan (01/01/2019 10:06 AM CDT): Weight/BMI is in healthy range. Continue healthy lifestyle to maintain. 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 Has had seizures due to the hyponatremia secondary to psychogenic polydipsia. Assessment & Plan (02/14/2019 2:13 PM CDT): - check BMPon 02/13 with Na of 135, unchanged. Assessment & Plan (01/01/2019 10:09 AM CDT): See hyponatremia Non compliance with medical treatment 12/30/2018 07/31/2024 Assessment & Plan (01/01/2019 10:09 AM CDT): Has been more compliant with getting her sodium levels. Has NOT been compliant with her schizophrenia medications. Very poor insight into her disease. Encounters Date Type Department Care Team Description 05/06/2025 Results Follow-Up [facility] Obstetrical Gynecology [address] [place] [phone] Nicolette Howard MD Pap and High Risk HPV and Genotyping (Cytology Component) 04/24/2025 4:56 PM CDT - 04/24/2025 11:59 PM CDT Hospital Encounter [facility] [address] [place] [address] Screening examination for STD (sexually transmitted disease); Well woman exam Discharge Disposition: Discharge to home or self care 04/24/2025 1:45 PM CDT Office Visit [facility] Obstetrical Gynecology [address] [place] [phone] Nicolette Howard MD Well woman exam (Primary Dx); Screening mammogram for breast cancer; Obesity, unspecified class, unspecified obesity type, unspecified whether serious comorbidity present; Screening examination for STD (sexually transmitted disease); Encounter for other general counseling or advice on contraception 03/26/2025 Telephone [facility] [place] [address] [place] [phone] Sawyer Ohara MD Medical Records Request from Last 3 Months Immunizations Immunization Administration Dates Next Due Influenza, Quadrivalent, Spl it, Preservative Free, Intramuscular 06/20/2017 Influenza, Unspecified 08/06/2024(Deferr ed: Patient decision),09/20/2023(Deferred: Patient Refused),05/29/2023(Deferred: Patient decision),07/18/2022(Deferred: Patient Refused),05/29/2022,06/18/2021(Deferre d: Patient Refused),05/29/2020(Deferred: Patient Refused) Tdap 02/29/2020 Surgical History Surgery Date Site/Laterality Comments TONSILLECTOMY Tonsillectomy OTHER SURGICAL HISTORY cyst removed back of head THYROIDECTOMY, PARTIAL Left Medical History Medical History Date Comments Disorder of thyroid Thyroid dise ase Anxiety disorder Anxiety Bipolar affective disorder (HCC) Pt states she was DX with schizophrenia, then later corrected to Bipolar Neuromuscular disorder Family History Medical History Relation Name Comments Kidney cancer Mother Thyroid cancer Mother Other Other 1 Family history of Cancer, thyroid; Other Other 2 Family history of colon polyps; Hyperthyroidism Other 3 Family histo ry of Hyperthyroidism; Breast cancer Neg Hx Ovarian cancer Neg Hx Uterine cancer Neg Hx Relation Name Status Comments Brother Alive Father Alive Maternal Grandfather Maternal Grandmother Mother Alive Other 1 Other 2 Other 3 Paternal Grandfather Paternal Grandmother Sister Alive Social History Tobacco Use Types Packs/Day Years Used Date Smoking Tobacco: Every Day Cigarettes Smokeless Tobacco: Never Tobacco Cessation:Ready to Q uit: Not Asked; Counseling Given: Not Answered Comments:refused counseling Alcohol Use Standard Drinks/Week Comments [...] on file Legal Sex Female 2:29 AM TURRET PRESS OPERATOR Gender Identity Not on file Sexual Orientation Not on file 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 Not on file Not on file Not on file Obstetrics History Para Term AB IAB SAB Ectopic Multiple Livin g Live Births 4 3 3 3 3 Date Outcome GA Total Labor Labor/2nd/3rd Weight Sex Type Anes PTL Caitlin A1 A5 Name Clin Term Term Term Comments Last Filed Vital Signs Vital Sign Reading Time Taken Comments Blood Pressure 110/70 04/24/2025 1:35 PM CDT Pulse 88 11/29/2024 11:36 AM CDT Temperature 36.3 C (97.3 F) 11/29/2024 11:36 AM CDT Respiratory Rate 18 08/30/2024 10:46 AM TURRET PRESS OPERATOR Oxygen Saturation 97% 11/29/2024 11:36 AM CDT Inhaled Oxygen Concentration - - Weight 96.6 kg (213 lb) 04/24/2025 1:35 PM CDT Height 165.1 cm (5' 5) 04/24/2025 1:35 PM CDT Body Mass Index 35.45 04/24/2025 1:35 PM CDT Plan of Treatment Health Maintenance Due Date Last Done Comments Hepatitis C Screening 1981 Varicella Vaccines (1 of 2 - 13+ 2-dose series) 1994 Hepatitis B Screening 1999 Pneumococcal vaccine <65 (1 of 2 - PCV) 2000 HPV Vaccines (1 - 3-dose SCD M series) 2008 Breast Cancer Screening-Mammogram 02/08/2024 023, 02/07/2023 Influenza Vaccine (#1) 2025 05/29/2022, 2016 Depression Screening 08/06/2025 08/06/2024, 12/30/2022, 10/06/2022, Additional history exists Cervical Cancer Screening 04/24/2026 04/24/2025, Regular Well Visit/Exam 18-64 04/24/2026, 08/06/2024, 11/16/2017 DTaP/Tdap/Td Vaccine (2 - Td or Tdap) 02/28/2030 02/29/2020 Procedures Procedure Name Priority Date/Time Associated Diagnosis Comments PAP AND HIGH RISK HPV, REFLEX TO GENOTYPING Routine 04/24/2025 2:35 PM CDT Well woman exam HIGH RISK HPV DNA DETECTION WITH GENOTYPING Routine 04/24/2025 2:30 PM CDT Well woman exam N. GONORRHOEAE/C. TRACHOMATIS AMPLIFICATION Routine 04/24/2025 2:30 PM CDT Screening examination for STD (sexually transmitted disease) TRICHOMONAS VAGINALIS PCR Routine 04/24/2025 2:30 PM CDT Screening examination for STD (sexually transmitted disease) SCREENING MAMMOGRAM BILATERAL W CORBY Schedule Routine, Read Routine (OP Routine) 02/07/2023 10:06 AM CDT Screening mammogram for high-risk patient from Last 3 Months or Most Recently Relevant to Health Maintenance Results * Pap and High Risk HPV and Genotyping (Cytology Component) (04/24/2025 2:35 PM CDT) Thin prep (Pap test) 04/24/2025 2:35 PM CDT 04/30/2025 7:56 AM CDT Narrative PATHOLOGY [facility] - 05/03/2025 5:22 PM CDT EPIC results best viewed via link to PDF [facility] [place] [address] Note to Patients: This report may contain a detailed description of human tissue sent by a health care provider to the laboratory for pathologic evaluation. The content of this report is essential for diagnosis and may provide important critical findings. This information may be unfamiliar to patients to review without a medical professional present. It is advised that the patient review this report in the presence of a health care provider who can answer questions and explain the details. CYTOPATHOLOGY REPORT FINAL Patient Name: THERESA KELLY Gender: F : 1980 (Age: 45) Address: [address] [place], [place] [id number] Hospital #: [id number] Service: UNKNOWN Location: Patient Type: [facility] SPECIMEN Taken: 04/24/2025 Received: 04/30/2025 Accessioned: 04/30/2025 Reported: 05/03/2025 Physician(s): Nicolette Howard M.D. FINAL INTERPRETATION SOURCE OF SPECIMEN Liquid based Thin Prep pap with HPV: STATEMENT OF ADEQUACY - Satisfactory for evaluation - Endocervical cells/transformation zone sample present GENERAL CATEGORIZATION: - Negative for squamous intraepithelial lesion or malignancy DESCRIPTION -Marked acute inflammatory cells Comments (Normal-Negative for High Risk HPV) HPV HR 16- Not detected HPV HR 18-Not detected HPV HR non 16/18- Not detected Interpretive Data Nucleic acid amplification for detection of high-risk Human Papilloma virus (HPV) is performed by the [employer] 6800 HPV test. This assay specifically detects HPV- 16 and HPV-18 genotypes. The following HPV genotypes are detected as high-risk HPV: HPV-31, 33, 35, 39, 45, 51, 52, 56, 58, 59, 66, and 68. This assay has been approved by the [place] Food and Drug Administration for detection of HPV in cervical specimens collected by a physician using an endocervical brush/spatula or cervical broom and placed in the ThinPrep Pap Test PreservCyt collection containers. The performance characteristics of this test have been verified by the [facility] Molecular Infectious Disease laboratory. Correlate with reported cytology results, as applicable. Interpretive data last revised 23 rks/05/03/2025 17:22 DEBRA Cr(ASCP), [facility] Report Electronically Reviewed and Signed Out By DEBRA Cr(ASCP), ROSALINE 05/03/2025 17:22:24 Cervicovaginal Cytology (Pap Test) Disclaimer: The Pap test is a screening test used to detect cervical cancer and its precursors; it is not a diagnostic procedure. False negative and false positive results do occur. Pap test results should be interpreted in the context of pertinent clinical information and biopsy results as indicated. [facility] Clinical Laboratory Improvement Amendments (CLIA) mandate that cytologic and histologic results be correlated for laboratory quality assurance coach & improvement standards. FOR ALL HIGH-GRADE CASES we request submission of follow-up histological material and/or reports that have not been previously provided so that we may fulfill said required standards. Gross Description A. Liquid based Thin Prep pap with HPV: Cervical/vaginal - Screening ThinPrep Clinical Diagnosis and History Last Menstrual Period: IUD The patient is a 45 year old female with wwe. Report Images and scanned documents, if included only viewable in PDF version The performance characteristics of some immunohistochemical stains, in-situ hybridization and fluorescence in-situ hybridization tests and immunophenotyping by flow cytometry cited in this report (if any) were determined by the Surgical Pathology Department at [facility] as part of an ongoing quality assurance advisor program and in compliance with federally mandated regulations drawn from the Clinical Laboratory Improvement Act of 1988 (CLIA '88). Some of these tests rely on the use of analyte specific reagents and are subject to specific labeling requirements by the [place] Food and Drug Administration. Such diagnostic tests may only be performed in a facility that is certified by the Department of Health and Human Services as a high complexity laboratory under CLIA '88. The FDA has determined that such clearance or approval is not necessary. This test is used for clinical purposes. It should not be regarded as investigational or for research. Nevertheless, federal rules concerning the medical use of analyte specific reagents require that the following disclaimer be attached to the report: This test was developed and its performance characteristics determined by the Surgical Pathology Department of [facility]. It has not been cleared or approved by the U. S. Food and Drug Administration. Nicolette Howard MD LAB CYTOLOGY ORDERABLES F inal Result PATHOLOGY [facility] * High Risk HPV DNA Detection with Genotyping (Molecular component) (04/24/2025 2:30 PM CDT) HPV HR 16 Not Detected Not Detected [facility] Comment:Testing performed by : [facility], [address] [place]., [address] HPV HR 18 Not Detected Not Detected [facility] Comment:Testing performed by : [facility], [address] [place]., [address] HPV HR Non 16/18 Not Detected Not Detected [facility] Comment: Interpretive Data Nucleic acid amplification for detection of high-risk Human Papilloma virus (HPV) is performed by the [employer] 6800 HPV test. This assay specifically detects HPV-16 and HPV-18 genotypes. The following HPV genotypes are detected as high-risk HPV: HPV-31, 33, 35, ,39, 45, 51, 52, 56, 58, 59, 66, and 68. This assay has been approved by the [place] Food and Drug Administration for detection of HPV in cervical specimens collected by a physician using an endocervical brush/spatula or cervical broom and placed in the ThinPrep Pap Test PreservCyt collection containers. The performance characteristics of this test have been verified by the [facility] Molecular Infectious Disease laboratory. Correlate with separately reported cytology results, as applicable. Interpretive data last revised 23 Testing performed by: [facility], [address] [place]., [address] Endocervical 04/24/2025 2:30 PM CDT 04/24/2025 8:42 PM CDT [facility] HARESH LUNA - 04/26/2025 3:29 AM CDT Clinical history and diagnosis->screening Testing type->Screening Last menstrual period (date if known)->iud Nicolette Howard MD LAB BODY FLUIDS AND STOOL S ORDERABLES Final Result Performing Organization Address City/[facility] Co de Phone Number HARESH [address] [address] [facility] * N. gonorrhoeae/C. trachomatis Amplification Endocervical (04/24/2025 2:30 PM CDT) C. trachomatis Not Detected [facility] Comment:Testing performed by : [facility], [address] [place] [address]., [address] N. gonorrhoeae Not Detected [facility] Comment: Interpretive Data This assay detects Chlamydia trachomatis and Neisseria gonorrhoeae by nucleic acid amplification testing (NAAT). This assay has been cleared by the [place] Food and Drug administration. The performance characteristics of this test have been verified by the [facility] laboratory. The performance characteristics of this test have not been evaluated in individuals less than 14 years of age. Current Interpretive Data was last revised on 2023. Testing performed by: [facility], [address] [place] [address]., [address] Endocervical (None) 04/24/20 2:30 PM CDT 04/24/2025 8:04 PM CDT Nicolette Howard MD LAB MICROBIOLOGY - GENERA L ORDERABLES Final Result Performing Organization Address City/[facility] Co de Phone Number HARESH [address] [place] [address] [facility] * Trichomonas vaginalis PCR Endocervical (04/24/2025 2:30 PM CDT) Trichomonas DNA Not Detected [facility] Comment: Interpretive Data This assay detects Trichomonas vaginalis by nucleic acid amplification testing (NAAT). This assay has been cleared by the [place] Food and Drug administration. The performance characteristics of this test have been verified by the [facility] Infectious Disease laboratory. The performance of this test has not been evaluated in individuals less than 18 years of age. Current Interpretive Data was last revised on 2023. Testing performed by: [facility], [address] [facility], [place]., [address] Endocervical 04/24/2025 2:30 PM CDT 04/24/2025 8:04 PM CDT Nicolette Howard MD LAB MICROBIOLOGY - GENERA L ORDERABLES Final Result HARESH [address] Department [place] [address] [facility] * Screening Mammogram Bilateral W [place] (02/07/2023 10:06 AM CDT) Anatomical Region Laterality Modality Breast Bilateral Mammography Impressions 02/07/2023 10:41 AM CDT BI-RADS ATLAS category (overall): 1 - Negative There is no mammographic evidence of malignancy. A 1 year screening mammogram is recommended. The patient has been or will be contacted. We recommend annual screening mammography for women at average risk of breast cancer beginning at age 40, based on guidelines of the [employer] (ACR Practice Parameter for the Performance of Screening and Diagnostic Mammography) and [employer]. For women with and elevated risk of breast cancer, please refer to the ACR Practice Parameter for specific screening recommendations. The patient will be entered into a reminder system with a target due date of 1 year for her next screening exam. Narrative 02/07/2023 10:41 AM CDT Screening Mammogram Bilateral W Corby: 02/07/23 The study was acquired using full field digital technology and interpreted from soft copy. 2D digital mammographic views, as well as 3D digital tomosynthesis were performed in the CC and MLO projections. CLINICAL: Screening mammogram for high-risk patient. No relevant medical history has been documented for this patient. History of breast cancer in Neg Hx. COMPARISON: Baseline Screening Mammography. No prior mammography is available for comparison. BREAST TISSUE: The breasts have scattered areas of fibroglandular density. FINDINGS: No suspicious masses, suspicious calcifications, or other suspicious findings are seen within either breast. Sawyer Ohara MD IMG MAMMO PROCEDURES Final Re sult from Last 3 Months or Most Recently Relevant to Health Maintenance Insurance ID[employer] MEDICARE Advance Directives For more information, please contact: [phone] * Full Code (Latest Code Status on File) Date Activated Date Inactivated Comments 02/05/2019 6:30 PM 02/27/2019 6:23 PM * Full Code Date Activated Date Inactivated Comments 10/08/2018 10:46 PM 10/13/2018 11:06 AM Care Teams Dry Cell Sealer Relationship Specialty Start Date End Date Sawyer Ohara MD PCP - General 03/14/19
--- OUTSIDE RECORDS SUMMARY | 2025-05-18 12:28 | XMS_ITS | Clinical Summary ---
Author Organization [facility] Address [address] 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 This disclosure is being madepursuant to the Care Everywhere program and may not contain all information available regarding this patient. Last updated 18.[employer] BRANSON SummuS Render Social History Tobacco Use Types Packs/Day Years Used Date Smoking Tobacco: Never Assessed Comments Unknown Sex and Gender Information Value Date Recorded Sex Assigned at Not on file Legal Sex Female 6:44 PM CDT Gender Identity Not on file Sexual Orientation Not on file Plan of Treatment Health Maintenance Due Date Last Done Comments LIPID TESTING 1981 MAMMOGRAM 1981 HIV SCREENING 1996 HEPATITIS C SCREENING 04/01/1999 DTAP/TDAP/TD VACCINES (1 - Tdap) 2000 HEPATITIS B VACCINE (1 of 3 - 19+ 3-dose series) 2000 HPV VACCINE (1 - 3-dose SCDM series) 2008 DEPRESSION SCREENING 08/29/2024 COVID-19 VACCINE ( - 2023-2 5 season) 2025 INFLUENZA VACCINE (#1) 2025 ZOSTER VACCINE (1 of 2) 2031 HIB VACCINE Aged Out No longer eligi ble based on patient's age to complete this topic MENINGOCOCCAL (Group B) VACC INE SHARED DECISION-MAKING Aged Out No longer eligibl e based on patient's age to complete this topic MENINGOCOCCAL GROUPS A/C/Y/W VACCINE Aged Out No longer eligible b ased on patient's age to complete this topic PNEUMOCOCCAL VACCINE Aged Out No long er eligible based on patient's age to complete this topic Insurance
--- OUTSIDE RECORDS SUMMARY | 2025-05-18 12:28 | XMS_ITS | Patient Health Record ---
Author Organization [facility] Address [address] [place] [address] Care Team Providers Care Cost Manager Name Role Phone Rico Tammi Primary Care Provider Wanda Browning Unavailable [phone] Francesca Luciano Unavailable Kalen Vincent Unavailable [phone] Allergies No Known Allergies Reason For Referral No Information Medications Medication SIG (Take, Route, Fr equency, Duration) Notes Start Date End Date Status traZODone HCl 50 MG 1 tablet at bedtime Orally Once a day; Duration: 30 days As needed for sleep Active hydrOXYzine HCl 50 MG 1 tablet as needed Orally Once a day; Duration: 30 days As needed for sleep or anxious distress Active Uzedy 100 MG/0.28ML 0.28 mL Subcutaneous once monthly; Duration: 30 days 09/20/2024 Activ e busPIRone HCl 15 MG 1 tablet Orally Twic e a day; Duration: 30 days Active OLANZapine 10 MG 1 tablet at bedtime Orally Once a day; Duration: 30 days Ac tive Social History Tobacco Use: Social History Observation Description Date Details (start date - stop date) Current Smoker NA - NA Dont use, Tobacco Use/Smoking Question Answer Notes Are you a current smoker How many cigarettes a day do you smoke? 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 Spiritual Affiliation- Who lives at home? lives in an apt next to mom & dad, Siblings? Children? one brother & living, 4 year old son lives with mom & dad/sister the have guardianship over him, he is not allowed in the car with me, 16 and 18 year old live iwth their day has BF of 7 years who is 4 yo father, we dont' see a lot of each other. Legal History- but is awaiting a pension from ex-. Substance Use-smokes a pack a week 1-2 a day, no ETOH, Cannabis, no street drugs, prior meds: lithium, invega up to 9 mg , perseris 120 mg IM olanzapine 5 mg added to perseris dose in 12/19 for uptick in AVH Problems Problem Type SNOMED Code ICD Code Onset Dates Problem Status W/U Status Risk Notes Problem Schizoaffective disorder, bipolar type (51832979) Schizoaffective disorder, bipolar type (F25.0) Active confirmed Problem Nicotine dependence (62222529) Nicotine dependence (F17.200) Active confirmed Vital Signs Heart Rate 94 /min 04/24/2025 Temperature 97.7 degrees Fahrenheit 09/21/2024 Respiratory Rate 18 /min 04/24/2025 Oximetry 96 % 04/24/2025 Blood pressure diastolic 88 mm Hg 04/24/2025 Height 65 in 04/24/2025 Blood pressure systolic 115 mm Hg 04/24/2025 Weight 212.0 lbs 04/24/2025 BMI 35.27 kg/m2 04/24/2025 Encounters Encounter Location Date Provider Diagnosis [address] [place] [address] 06/21/2024 Kalen Vincent Schizoaffective disorder, bipolar type F25.0 and Nicotine dependence F17.200 Counts Include [facility] [address] [place] [address] 06/22/2024 Kalen Vincent Schizoaffective disorder, bipolar type F25.[address] [place] [address] 07/18/2024 Kalen Vincent Schizoaffective disorder, bipolar type F25.0 and Nicotine dependence F17.200 Counts Include [address] [facility] [address], [place] [address] 07/24/2024 Kalen Vincent Schizoaffective disorder, bipolar type F25.[address] [place] [address] 08/14/2024 Kalen Vincent Schizoaffective disorder, bipolar type F25.0 and Nicotine dependence F17.[address] [place] [address] 08/23/2024 Kalen Vincent Schizoaffective disorder, bipolar type F25.0 Counts Include [address] [facility] [address] [place] [address] 09/21/2024 Kalen Vincent Schizoaffective disorder, bipolar type F25.[address] [place] [address] 10/11/2024 Kalen Vincent Schizoaffective disorder, bipolar type F25.0 and Nicotine dependence F17.200 Counts Include [address] [facility] [address] [address] 10/29/2024 Kalen Vincent Schizo affective schizophrenia F25.0 Counts Include [address] [facility] [address] [address] 12/03/2024 Kalen Vincent Schizoaffective disorder, bipolar type F25.0 Counts Include [address] [address] [place] [address] 01/10/2025 Kalen Vincent Schizoaffective disorder, bipolar type F25.0 Counts Include [address] [facility] [address] [place] [address] 02/11/2025 Kalen Vincent Schizoaffective disorder, bipolar type F25.0 Counts Include [address] [address] [place] [address] 02/13/2025 Tammi Rico Schizoaffective disorder, bipolar type F25.0 Counts Include [address] [facility] [address] [place] [address] 03/14/2025 Tammi Gómez Schizoaffective disorder, bipolar type F25.0 Counts Include [address] [facility] [address] [place] [address] 04/24/2025 Francesca Sandhusuzanne Schizoaffective disorder, bipolar type F25.0 Counts Include [address] [facility] [address] [place] [address] 06/11/2024 Kalen Vincent [address] [place] [address] 06/13/2024 Kalen Vincent [address] [place] [address] 07/09/2024 Kalen Vincent [facility] [address] [place] [address] 08/15/2024 Kalen Vincent Schizoaffective disorder, bipolar type F25.0 [facility] [address] [place] [address] 09/12/2024 Kalen Vincent Schizoaffective disorder, bipolar type F25.0 Counts Include [address] [facility] [address] [place] [address] 09/19/2024 Kalen Vincent Schizoaffective disorder, bipolar type F25.0 Counts Include [address] [facility] [address] [place] [address] 09/21/2024 Kalen Vincent [address] [place] [address] 10/29/2024 Kalen Vincent [facility] [place] [address] 11/29/2024 Kalen Vincent Schizoaffective disorder, bipolar type F25.[address] [place] [address] 02/11/2025 Wanda Browning Schizoaffective disorder, bipolar type F25.[address] [place] [address] 02/13/2025 Tammi Gómez [facility] [address] [place] [address] 03/11/2025 Tammi Gómez Assessments Encounter Date Diagnosis (ICD Code) Assessment Notes Treatment Notes Treatment Clinical Notes Section Notes 06/21/2024 Schizoaffective disorder, bipolar type (ICD-10 - F25.0) Duration (acute/chronic), stability (controlled/uncont rolled): Chronic, mostly well controlled on current medication regimen, room for improvement Current medications/effica cy: Somewhat, room for improvement Previous medication trials: Mannford, Risperidone, Depakote Current/previous therapies: Not currently, previous therapy about 7 years ago Examination as documented - see pertinent aspects of office visit documentation. Pertinent diagnostics: LABS MONITORED BY PCP - LABS ALSO IN CHART FROM 01/2024, SEE CHART Differential diagnoses: RECOMMENDATIONS: START duloxetine as prescribed to ideally assist with anxiety and pain - educated patient/guardian on adverse effects, risks and benefits, as well as alternative treatments START clonidine as prescribed to help with anxiety and irritability - educated patient/guardian on adverse effects, risks and benefits, as well as alternative treatments Continue/modify other medications as prescribed - educated patient/guardian on adverse effects, risks and benefits, as well as alternative treatments Consume well balanced diet, preferably low in saturated fats (solid at room temperature, such as butter, margarine, Crisco, etc) and low in sodium (<2,000mg per day). Consume plenty of fruits/vegetables, healthy grains/whole grains, unsaturated/health y fats (liquid at room temperature, such as olive oil, sunflower seed oil, canola, vegetable, etc.). Exercise regularly - Develop an exercise routine. 30 minutes of moderate exercise (walking at a brisk pace) 5 times per week is recommended. You should work hard enough to cause a sweat but still be able to talk with others while exercising. Exercise improves overall health - improves blood pressure and blood sugar, helps control weight, reduces stress, and improves mood. Practice stress reduction techniques, such as guided imagery, journaling, aromatherapy, acupuncture/acupre ssure, deep breathing, etc. Practice healthy sleep hygiene - maintain regular routine, no caffeine after 1PM, no exercise 1-2 hours prior to bedtime, keep bedroom dark and cool, no TV or electronics while in bed. Consider melatonin as needed. Consider cognitive behavioral therapy for insomnia (CBT-I). Consider/Continue therapy. Consider/Continue substance cessation therapy as needed - contact office if desiring medication assisted therapy. Manage co-morbid conditions. Continue monitoring symptoms - report persistent or worsening/concerni ng symptoms to the office or go to the ER. For mental health CRISIS, please reach out to [phone] (National Suicide and Crisis Lifeline), 911, go to the emergency department, or contact the [facility] Crisis Unit/Team. Follow up as scheduled in 4 weeks or sooner if necessary. Follow up with PCP and/or other specialists as advised. NEXT STEP: Consider increasing duloxetine pending response/tolerabil ity. Consider increasing clonidine as needed pending response/tolerabil ity. Consider retrial of gabapentin if patient is agreeable since patient has been on 2 mood stabilizing medications for a while. Consider addition of low dose TCA at bedtime if no other option available to help manage anxiety/mood and pain. 06/22/2024 Schizoaffective disorder, bipolar type (ICD-10 - F25.0) 07/18/2024 Schizoaffective disorder, bipolar type (ICD-10 - F25.0) Duration (acute/chronic), stability (controlled/uncont rolled): Chronic, improved with recent medication adjustments, still room for improvement, see HPI Current medications/effica cy: Somewhat, room for improvement Previous medication trials: Mannford, Risperidone, Depakote, clonidine (reportedly developed heart failure) Current/previous therapies: Not currently, previous therapy about 7 years ago Examination as documented - see pertinent aspects of office visit documentation. Pertinent diagnostics: LABS MONITORED BY PCP - LABS ALSO IN CHART FROM 01/2024, SEE CHART Differential diagnoses: RECOMMENDATIONS: INCREASE duloxetine as prescribed to ideally assist with anxiety and pain - educated patient/guardian on adverse effects, risks and benefits, as well as alternative treatments DISCONTINUE clonidine as advised due to reports of previously developing heart failure with this medication - educated patient/guardian on adverse effects, risks and benefits, as well as alternative treatments Continue/modify other medications as prescribed - educated patient/guardian on adverse effects, risks and benefits, as well as alternative treatments Consume well balanced diet, preferably low in saturated fats (solid at room temperature, such as butter, margarine, Crisco, etc) and low in sodium (<2,000mg per day). Consume plenty of fruits/vegetables, healthy grains/whole grains, unsaturated/health y fats (liquid at room temperature, such as olive oil, sunflower seed oil, canola, vegetable, etc.). Exercise regularly - Develop an exercise routine. 30 minutes of moderate exercise (walking at a brisk pace) 5 times per week is recommended. You should work hard enough to cause a sweat but still be able to talk with others while exercising. Exercise improves overall health - improves blood pressure and blood sugar, helps control weight, reduces stress, and improves mood. Practice stress reduction techniques, such as guided imagery, journaling, aromatherapy, acupuncture/acupre ssure, deep breathing, etc. Practice healthy sleep hygiene - maintain regular routine, no caffeine after 1PM, no exercise 1-2 hours prior to bedtime, keep bedroom dark and cool, no TV or electronics while in bed. Consider melatonin as needed. Consider cognitive behavioral therapy for insomnia (CBT-I). Consider/Continue therapy. Consider/Continue substance cessation therapy as needed - contact office if desiring medication assisted therapy. Manage co-morbid conditions. Continue monitoring symptoms - report persistent or worsening/concerni ng symptoms to the office or go to the ER. For mental health CRISIS, please reach out to [phone] (National Suicide and Crisis Lifeline), 911, go to the emergency department, or contact the [facility] Crisis Unit/Team. Follow up as scheduled in 4 weeks or sooner if necessary. Follow up with PCP and/or other specialists as advised. NEXT STEP: Consider increasing duloxetine pending response/tolerabil ity. Consider retrial of gabapentin if patient is agreeable since patient has been on 2 mood stabilizing medications for a while. Consider addition of low dose TCA at bedtime if no other option available to help manage anxiety/mood and pain. 07/24/2024 Schizoaffective disorder, bipolar type (ICD-10 - F25.0) 08/14/2024 Schizoaffective disorder, bipolar type (ICD-10 - F25.0) Duration (acute/chronic), stability (controlled/uncont rolled): Chronic, well controlled/stable Current medications/effica cy: Yes Previous medication trials: Mannford, Risperidone, Depakote, clonidine (reportedly developed heart failure) Current/previous therapies: Not currently, previous therapy about 7 years ago Examination as documented - see pertinent aspects of office visit documentation. Pertinent diagnostics: LABS MONITORED BY PCP - LABS ALSO IN CHART FROM 01/2024, SEE CHART Differential diagnoses: Patient previously on gabapentin - cannot remember precise reason she was taken off of gabapentin. Patient wanting to continue with injections and PT as ordered by pain management prior to trying other medications for pain. Open to discussing gabapentin again as needed for mood/pain at follow up. Patient agreeable to decreasing duloxetine to 20mg once daily due to reports of increased nightmares/brain activity during sleep, see HPI. Agreeable to continuing other medications as prescribed. Agreeable to following up in 2 months, sooner if necessary. RECOMMENDATIONS: DECREASE duloxetine as prescribed to ideally assist with nightmares/increas ed brain activity during sleep - educated patient/guardian on adverse effects, risks and benefits, as well as alternative treatments Continue/modify other medications as prescribed - educated patient/guardian on adverse effects, risks and benefits, as well as alternative treatments Consume well balanced diet, preferably low in saturated fats (solid at room temperature, such as butter, margarine, Crisco, etc) and low in sodium (<2,000mg per day). Consume plenty of fruits/vegetables, healthy grains/whole grains, unsaturated/health y fats (liquid at room temperature, such as olive oil, sunflower seed oil, canola, vegetable, etc.). Exercise regularly - Develop an exercise routine. 30 minutes of moderate exercise (walking at a brisk pace) 5 times per week is recommended. You should work hard enough to cause a sweat but still be able to talk with others while exercising. Exercise improves overall health - improves blood pressure and blood sugar, helps control weight, reduces stress, and improves mood. Practice stress reduction techniques, such as guided imagery, journaling, aromatherapy, acupuncture/acupre ssure, deep breathing, etc. Practice healthy sleep hygiene - maintain regular routine, no caffeine after 1PM, no exercise 1-2 hours prior to bedtime, keep bedroom dark and cool, no TV or electronics while in bed. Consider melatonin as needed. Consider cognitive behavioral therapy for insomnia (CBT-I). Consider/Continue therapy. Consider/Continue substance cessation therapy as needed - contact office if desiring medication assisted therapy. Manage co-morbid conditions. Continue monitoring symptoms - report persistent or worsening/concerni ng symptoms to the office or go to the ER. For mental health CRISIS, please reach out to [phone] (National Suicide and Crisis Lifeline), 911, go to the emergency department, or contact the [facility] Crisis Unit/Team. Follow up as scheduled in 2 months or sooner if necessary. Follow up with PCP and/or other specialists as advised. NEXT STEP: Consider increasing duloxetine pending response/tolerabil ity. Consider retrial of gabapentin if patient is agreeable since patient has been on 2 mood stabilizing medications for a while. Consider addition of low dose TCA at bedtime if no other option available to help manage anxiety/mood and pain. 08/15/2024 Schizoaffective disorder, bipolar type (ICD-10 - F25.0) 08/23/2024 Schizoaffective disorder, bipolar type (ICD-10 - F25.0) 09/12/2024 Schizoaffective disorder, bipolar type (ICD-10 - F25.0) 09/19/2024 Schizoaffective disorder, bipolar type (ICD-10 - F25.0) 09/21/2024 Schizoaffective disorder, bipolar type (ICD-10 - F25.0) 10/11/2024 Schizoaffective disorder, bipolar type (ICD-10 - F25.0) Duration (acute/chronic), stability (controlled/uncont rolled): Chronic, well controlled/stable Current medications/effica cy: Yes Previous medication trials: Mannford, Risperidone, Depakote, clonidine (reportedly developed heart failure) Current/previous therapies: Not currently, previous therapy about 7 years ago Examination as documented - see pertinent aspects of office visit documentation. Pertinent diagnostics: LABS MONITORED BY PCP - LABS ALSO IN CHART FROM 01/2024, SEE CHART Differential diagnoses: RECOMMENDATIONS: INCREASE hydroxyzine as discussed/prescrib ed to assist with sleep/dreams - educated patient/guardian on adverse effects, risks and benefits, as well as alternative treatments Continue/modify other medications as prescribed - educated patient/guardian on adverse effects, risks and benefits, as well as alternative treatments Consume well balanced diet, preferably low in saturated fats (solid at room temperature, such as butter, margarine, Crisco, etc) and low in sodium (<2,000mg per day). Consume plenty of fruits/vegetables, healthy grains/whole grains, unsaturated/health y fats (liquid at room temperature, such as olive oil, sunflower seed oil, canola, vegetable, etc.). Exercise regularly - Develop an exercise routine. 30 minutes of moderate exercise (walking at a brisk pace) 5 times per week is recommended. You should work hard enough to cause a sweat but still be able to talk with others while exercising. Exercise improves overall health - improves blood pressure and blood sugar, helps control weight, reduces stress, and improves mood. Practice stress reduction techniques, such as guided imagery, journaling, aromatherapy, acupuncture/acupre ssure, deep breathing, etc. Practice healthy sleep hygiene - maintain regular routine, no caffeine after 1PM, no exercise 1-2 hours prior to bedtime, keep bedroom dark and cool, no TV or electronics while in bed. Consider melatonin as needed. Consider cognitive behavioral therapy for insomnia (CBT-I). Consider/Continue therapy. Consider/Continue substance cessation therapy as needed - contact office if desiring medication assisted therapy. Manage co-morbid conditions. Continue monitoring symptoms - report persistent or worsening/concerni ng symptoms to the office or go to the ER. For mental health CRISIS, please reach out to [phone] ([employer] Suicide and Crisis Lifeline), 911, go to the emergency department, or contact the [facility] Crisis Unit/Team. Follow up as scheduled in 6 weeks or sooner if necessary. Follow up with PCP and/or other specialists as advised. NEXT STEP: Consider increasing duloxetine pending response/tolerabil ity. Consider retrial of gabapentin if patient is agreeable since patient has been on 2 mood stabilizing medications for a while. Consider addition of low dose TCA at bedtime if no other option available to help manage anxiety/mood and pain. 10/29/2024 Schizo affective schizophrenia (ICD-10 - F25.0) 11/29/2024 Schizoaffective disorder, bipolar type (ICD-10 - F25.0) 12/03/2024 Schizoaffective disorder, bipolar type (ICD-10 - F25.0) 01/10/2025 Schizoaffective disorder, bipolar type (ICD-10 - F25.0) 02/11/2025 Schizoaffective disorder, bipolar type (ICD-10 - F25.0) 02/11/2025 Schizoaffective disorder, bipolar type (ICD-10 - F25.0) 02/13/2025 Schizoaffective disorder, bipolar type (ICD-10 - F25.0) 03/14/2025 Schizoaffective disorder, bipolar type (ICD-10 - F25.0) 04/24/2025 Schizoaffective disorder, bipolar type (ICD-10 - F25.0) 10/11/2024 Nicotine dependence (ICD-10 - F17.200) Duration (acute/chronic), stability (controlled/uncont rolled): Chronic, Cigarettes, has been smoking since age 16 - patient verbalized no intention to quit at this time Current medications/effica cy: N/A Previous medication trials: N/A RECOMMENDATIONS: Consider substance cessation therapy as needed - contact office if desiring medication assisted therapy. Manage co-morbid conditions. Continue monitoring symptoms - report persistent or worsening/concerni ng symptoms to the office or go to the ER. For mental health CRISIS, please reach out to [phone] ([employer] Suicide and Crisis Lifeline), 911, go to the emergency department, or contact the [facility] Crisis Unit/Team. Follow up as scheduled or sooner if necessary. Follow up with PCP and/or other specialists as advised. NEXT STEP: Consider MAT as needed. 08/14/2024 Nicotine dependence (ICD-10 - F17.200) Duration (acute/chronic), stability (controlled/uncont rolled): Chronic, Cigarettes, has been smoking since age 16 - patient verbalized no intention to quit at this time Current medications/effica cy: N/A Previous medication trials: N/A RECOMMENDATIONS: Consider substance cessation therapy as needed - contact office if desiring medication assisted therapy. Manage co-morbid conditions. Continue monitoring symptoms - report persistent or worsening/concerni ng symptoms to the office or go to the ER. For mental health CRISIS, please reach out to [phone] ([employer] Suicide and Crisis Lifeline), 911, go to the emergency department, or contact the [facility] [employer] Crisis Unit/Team. Follow up as scheduled or sooner if necessary. Follow up with PCP and/or other specialists as advised. NEXT STEP: Consider MAT as needed. 07/18/2024 Nicotine dependence (ICD-10 - F17.200) Duration (acute/chronic), stability (controlled/uncont rolled): Chronic, Cigarettes, has been smoking since age 16 - patient verbalized no intention to quit at this time Current medications/effica cy: N/A Previous medication trials: N/A RECOMMENDATIONS: Consider substance cessation therapy as needed - contact office if desiring medication assisted therapy. Manage co-morbid conditions. Continue monitoring symptoms - report persistent or worsening/concerni ng symptoms to the office or go to the ER. For mental health CRISIS, please reach out to [phone] (National Suicide and Crisis Lifeline), 911, go to the emergency department, or contact the [facility] Crisis Unit/Team. Follow up as scheduled or sooner if necessary. Follow up with PCP and/or other specialists as advised. NEXT STEP: Consider MAT as needed. 06/21/2024 Nicotine dependence (ICD-10 - F17.200) Duration (acute/chronic), stability (controlled/uncont rolled): Chronic, Cigarettes, has been smoking since age 16 - patient verbalized no intention to quit at this time Current medications/effica cy: N/A Previous medication trials: N/A RECOMMENDATIONS: Consider substance cessation therapy as needed - contact office if desiring medication assisted therapy. Manage co-morbid conditions. Continue monitoring symptoms - report persistent or worsening/concerni ng symptoms to the office or go to the ER. For mental health CRISIS, please reach out to [phone] (National Suicide and Crisis Lifeline), 911, go to the emergency department, or contact the [facility] Crisis Unit/Team. Follow up as scheduled or sooner if necessary. Follow up with PCP and/or other specialists as advised. NEXT STEP: Consider MAT as needed. 02/13/2025 Other DIscussed Uzedy dose could be maximized and olanzapine slowly decreased to see if she really needs this agent. CLient is resistent to any changes today. Asked if she would consider coming to for her next injection and meet in person (AIMS assessment, build rapport) no that won't work Will continue to build rapport. SGA SE- Discussed risks, benefits and side effects. Discussed possible weight gain leading to lipid and glucose changes, involuntary movements, anticholinergic affects and rare CV events, NMS, Seizure. Plan Of Treatment No Information Insurance Providers Payer Name Payer Address Payer Phone Subscriber Number Group Number Insured Name Patient Relationship to Insured Coverage Start Date Coverage End Date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
--- OUTSIDE RECORDS SUMMARY | 2025-05-18 12:28 | XMS_ITS | Encounter Summary ---
Author Organization [facility] Healthcare Address [address] [place] [address] Care Team Providers Care Medical Coder Name Role Phone Sawyer Ohara MD Primary Care Provider [phone] Encounter Details Date Type Department Care Team (Latest Contact Info) Description 07/10/2020 Ophth Exam Ophthalmology Ravin Grimaldo MD [address] [facility] [phone] [place], [place] [id number] Social History Tobacco Use Types Packs/Day Years Used Date Smoking Tobacco: Every Day Cigarettes Smokeless Tobacco: Never Comments:refused counseling Alcohol Use Standard Drinks/Week Comments Never 0 (1 standard drink = 0.6 oz pur e alcohol) AUDIT-C Answer Date Recorded Frequency of Alcohol Consumption Never 07/10/2020 Average Number of Drinks Not on file 020 Frequency of Binge Drinking Not on file 06/29 PHQ-2 Answer Date Recorded PHQ-2 Score 0 04/19/2019 Comments No Sex and Gender Information Value Date Recorded Sex Assigned at Not on file Legal Sex Female 2:29 AM CERTIFIED SHORTHAND REPORTER Gender Identity Not on file Sexual Orientation Not on file 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 Not on file Not on file documented as of this encounter Plan of Treatment Not on file documented as of this encounter Visit Diagnoses Not on filedocumented in this encounter Additional Health Concerns Infection Onset Date Last Indicated Resolved Time COVID: Suspected 07/16/2024 07/16/2024 07/16/2024 9:56 AM CERTIFIED SHORTHAND REPORTER documented as of this encounter Eye Exam Visual Acuity Right eye Left eye Near sc HM Near cc 20/20 Tonometry (Tonopen, 5:29 PM) Right eye Left eye Pressure 16 23 Pupils Dark Light Shape React APD Right eye 5 2 Round Brisk None Left eye - - - - +by revers e Visual Delacruz Right eye Left eye Full Restrictions Total superior t emporal, inferior temporal, superior nasal, inferior nasal deficiencies Extraocular Movement Right eye Left eye Full Full OS limited by pain/swelling Neuro/Psych Oriented x3: Yes Mood/Affect: see note Swinging mood, intermittently agitated, with inappropriate affect. States she was being monitored and feels like a lab rat. Dilation Right eye: 1.0% Mydriacyl, 2 .5% Phenylephrine @ 5:28 PM External Exam Right eye Left eye External Normal reactive ptosis, mild edema Slit Lamp Exam Right eye Left eye Lids/Lashes Normal swollen, with pu rulent discharge cursting over upper and lower lid and periorbital erythema Conjunctiva/Sclera 2+ injected [address] with [address] lens in place 3+ 360 injection Cornea multiple SPEE ring infiltrate 5mm V x 3.7mm H with fluoresceine uptake Anterior Chamber deep and quiet hypopyon 1.1mm Iris Round and reactive MARIA C Lens trace NS MARIA C Vitreous Normal Normal Fundus Exam Right eye Left eye Disc Sharp margins, no elevation MARIA C C/D Ratio 0.3 MARIA C Macula Flat, attached MARIA C Vessels Normal course and caliber MARIA C Periphery attached, no lesions MARIA C B scan OD/OS clean, without heme/vitritis Care Teams Medical Coder Relationship Specialty Start Date End Date Sawyer Ohara MD PCP - General 03/14/19 documented as of this encounter
[2025-05-18 15:28] VITALS: BP 99/57; PULSE 97; RESP 18; O2SAT 97
--- OUTSIDE RECORDS SUMMARY | 2025-05-18 15:46 | XMS_ITS | Encounter Summary ---
Author Organization [facility] Facility Care Team Providers Care Garment Finisher Name Role Phone Karen Coulter MD Primary Care Provider [phone] Ayana Sheikh Primary Care Provider [phone] Sawyer Ohara MD Primary Care Provider [phone] Encounter Details Date Type Department Care Team (Latest Contact Info) Description 10/04/2018 Orders Only [facility] ProviderKylah MD [address] [place] [id number] Social History Tobacco Use Types Packs/Day Years Used Date Smoking Tobacco: Never Assessed Comments Unknown Sex and Gender Information Value Date Recorded Sex Assigned at Not on file Legal Sex Female 2:29 AM LIBRARY SERVICES DEAN Gender Identity Not on file Sexual Orientation Not on file documented as of this encounter Plan of Treatment Not on file documented as of this encounter Procedures Procedure Name Priority Date/Time Associated Diagnosis Comments SCAN - LABS 10/09/2018 12:00 AM LIBRARY SERVICES DEAN documented in this encounter Results * SCAN - LABS (10/09/2018 12:00 AM LIBRARY SERVICES DEAN) Narrative 10/09/2018 12:00 AM LIBRARY SERVICES DEAN Ordered by an unspecified provider. Historical Provider Final Res ult documented in this encounter Visit Diagnoses Not on filedocumented in this encounter Additional Health Concerns Infection Onset Date Last Indicated Resolved Time COVID: Suspected 07/16/2024 07/16/2024 07/16/2024 9:56 AM LIBRARY SERVICES DEAN documented as of this encounter Care Teams Garment Finisher Relationship Specialty [place] [address] [place] [address] PCP - General 05/10/13 12/26/18 Ayana Sheikh PA [address] [place] [address] PCP - General Internal Medicine 12/27/18 03/13/19 Sawyer Ohara MD [address] [place] [address] PCP - General 03/14/19 documented as of this encounter
--- OUTSIDE RECORDS SUMMARY | 2025-05-18 15:46 | XMS_ITS | Clinical Summary ---
Author Organization [facility] Address [address] [place] [address] Care Team Providers Care Sea Kayaking Guide Name Role Phone Sawyer Ohara MD Primary Care Provider [phone] Allergies No known active allergies Medications traZODone [...] CDT - 05/16/2025 7:05 PM CDT Emergency [facility] Emergency Room [address] [place] [address] Gisell Gordon MD Foot Injury Discharge [...] 6:01 PM Narrative 05/16/2025 6:10 PM CDT [facility] [address] [place] [address] Examination: Pelvis AP view, right femur 2 views, right tibia/fibula 2 views, right foot 3 views [id number], [id number] Exam Date/Time: 05/16/2025 5:20 PM Reason For [...] Procedure Note Surinder Kemp MD - 05/16/2025 [facility] [address] [place] [address] Examination: Pelvis AP view, right femur 2 views, right tibia/fibula 2views, right foot 3 views [id number], [id number], [id number] Exam Date/Time: 05/16/2025 5:20 PM Reason For [...] 6:01 PM Narrative 05/16/2025 6:10 PM CDT [facility] [address] [place] [address] Examination: Pelvis AP view, right femur 2 views, right tibia/fibula 2 views, right foot 3 views [id number], [id number], [id number] Exam Date/Time: 05/16/2025 5:20 PM Reason For [...] Procedure Note Surinder Kemp MD - 05/16/2025 [facility] [address] [facility] [place] [address] Examination: Pelvis AP view, right femur 2 views, right tibia/fibula 2views, right foot 3 views [id number], [id number], [id number] Exam Date/Time: 05/16/2025 5:20 PM Reason For [...] 6:01 PM Narrative 05/16/2025 6:10 PM CDT [facility] [address] [facility] [place] [address] Examination: Pelvis AP view, right femur 2 views, right tibia/fibula 2 views, right foot 3 views [id number], [id number], [id number] Exam Date/Time: 05/16/2025 5:20 PM Reason For [...] Procedure Note Surinder Kemp MD - 05/16/2025 [facility] [address] [facility] [place] [address] Examination: Pelvis AP view, right femur 2 views, right tibia/fibula 2views, right foot 3 views [id number], [id number], [id number] Exam Date/Time: 05/16/2025 5:20 PM Reason For [...] 6:01 PM Narrative 05/16/2025 6:10 PM CDT [facility] [address] [facility] [place] [address] Examination: Pelvis AP view, right femur 2 views, right tibia/fibula 2 views, right foot 3 views [id number], [id number], [id number] Exam Date/Time: 05/16/2025 5:20 PM Reason For [...] Procedure Note Surinder Kemp MD - 05/16/2025 [facility] [address] [place] [address] Examination: Pelvis AP view, right femur 2 views, right tibia/fibula 2views, right foot 3 views [id number], [id number], [id number] Exam Date/Time: 05/16/2025 5:20 PM Reason For [...] 5:59 PM Narrative 05/16/2025 6:01 PM CDT [place] [address] [place] [address] Examination: 3 views left shoulder Exam date/time: [...] Procedure Note Surinder Kemp MD - 05/16/2025 [facility] [address] [place] [address] Examination: 3 views left shoulder Exam date/time: [...] 6:11 PM Narrative 05/16/2025 6:15 PM CDT [address] [place] [address] Examination: Thoracic Spine 3 views Exam date/time: [...] Procedure Note Surinder eKmp MD - 05/16/[address] [place] [address] Examination: Thoracic Spine 3 views Exam date/time: [...] CONVERSION Comment: Result Comment: Test Performed at: [facility] [address] [place] [address] [place] [id number] MERY REYNAGA DO,MPH 04/22/2015 9:52 AM CDT 04/22/2015 9:52 AM CDT Narrative [facility] TO EPIC CONVERSION - 04/22/2015 9:54 AM CDT Result Communication: No patient communication needed at this time Ailyn Bridges NP LABORATORY Final Result [facility] TO EPIC CONVERSION from Last 3 Months or Most Recently Relevant to Health Maintenance Insurance [address] [place] [address] [employer] Care Teams Sea Kayaking Guide Relationship Specialty Start Date End Date Sawyer Ohara MD PCP - General FAMILY PRACTICE 08/05/20
--- OUTSIDE RECORDS SUMMARY | 2025-05-18 15:46 | XMS_ITS | Encounter Summary ---
Author Organization [facility] Healthcare Address [address] [place] [address] Care Team Providers Care Heavy Equipment Supervisor Name Role Phone Saweyr Ohara MD Primary Care Provider [phone] Encounter Details Date Type Department Care Team (Latest Contact Info) Description 05/06/2025 Results Follow-Up [facility] Obstetrical Gynecology [address] [phone] Nicolette Howard MD [address] [address] Pap and High Risk HPV [...] on file Legal Sex Female 2:29 AM KENO MANAGER Gender Identity Not on file Sexual Orientation Not on file 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
--- OUTSIDE RECORDS SUMMARY | 2025-05-18 15:46 | XMS_ITS | Encounter Summary ---
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
--- OUTSIDE RECORDS SUMMARY | 2025-05-18 15:46 | XMS_ITS | Clinical Summary ---
Author Organization [facility] Address [address] [place] [address] Care Team Providers Care Supervisor Feed Mill Name Role Phone Unavailable Primary Care Provider Unavailabl e Source Comments [facility],non-owned Affiliates and Associated Physician Practices is amultiple site organization consisting of ambulatory clinics and hospital sitesin [place], [place] and [place]. This disclosure is being madepursuant to the Care Everywhere program and may not contain all information available regarding this patient. Last updated 18.[facility] [employer] Social History Tobacco Use Types Packs/Day Years [...]
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
[2025-05-18] MEDS: IBUPROFEN 600 MG TABLET PO (16:14)
[2025-05-18] MEDS: ACETAMINOPHEN 325 MG TABLET 650 MG PO (16:15)
== END 2025-05-18 17:50 | disposition home or self-care (01) ==
PROVIDERS: Emergency Provider Emergency Medicine; PCP Family Medicine
DX: S92.514A Nondisplaced fracture of proximal phalanx of right lesser toe(s), initial encounter for closed fracture (principal); S92.414A Nondisplaced fracture of proximal phalanx of right great toe, initial encounter for closed fracture; V03.90XA Pedestrian on foot injured in collision with car, pick-up truck or van, unspecified whether traffic or nontraffic accident, initial encounter
CPT/HCPCS: 73610; 73630; 99283; A9270